=== PATIENT | male | born 1950 | race Caucasian/White ===

== ENCOUNTER 2017-04-06 15:53 | Observation (INO) ==
[2017-04-06] MEDS ORDERED: methylPREDNISolone 125 MG/2 ML VIAL IVP ONE (16:00)
[2017-04-06] MEDS ORDERED: Ipratropium/Albuterol Neb 3 ML IH ONE (16:00)
--- NOTE | 2017-04-06 16:06 | Emergency Department Note ---
Disposition Clinical Impression: Elevated troponin PNA (pneumonia) Qualifiers: Pneumonia type: due to unspecified organism Laterality: right Lung location: unspecified part of lung Qualified Code(s): J18.9 - Pneumonia, unspecified organism Chronic kidney disease Qualifiers: Chronic kidney disease stage: unspecified stage Qualified Code(s): N18.9 - Chronic kidney disease, unspecified Disposition: Admitted As Inpatient Condition: Fair Time of Disposition: 18:50 General Adult HPI - General Chief complaint: ED Nausea/Vomiting/Diarrhea Stated complaint: N/V since last PM Time Seen by Provider: 04/06/17 15:57 Source: patient Mode of arrival: EMS Limitations: no limitations Nursing Notes Reviewed: Yes Vital Signs Reviewed: Yes - History of Present Illness HPI Narrative: 66-year-old male presented for evaluation of cough and dyspnea. Patient denies any fevers. Patient has no productive cough over the past week. Noted dyspnea. Patient has chest pain related to the cough. Patient also has a history of diabetes, hypertension, CAD. Patient denies any abdominal pain. Patient states he has had several episodes of posttussive emesis. Patient brought in via EMS and was doing the hypoxic in the upper 80s on room air. Patient does not have home oxygen. Is a former smoker over 35 years. Notable ill contacts at home. - Related Data Home Medications Medication Instructions Recorded Confirmed Allopurinol [Zyloprim 100 MG] 100 mg PO DAILY 04/02/15 04/06/17 Carvedilol [Coreg] 25 mg PO BID 04/02/15 04/06/17 Citalopram [CeleXA] 20 mg PO DAILY 04/02/15 04/06/17 Furosemide [Lasix] 60 mg PO BID 04/02/15 04/06/17 Insulin ASPART [NovoLOG] 34 unit SQ QAM 04/02/15 04/06/17 Insulin ASPART [NovoLOG] 38 unit SQ QPM 04/02/15 04/06/17 Montelukast [Singulair] 10 mg PO DAILY 04/02/15 04/06/17 Potassium Chloride [K-Tab ER] 20 meq PO BID 04/02/15 04/06/17 Ranitidine HCl [Zantac] 150 mg PO BID 04/02/15 04/06/17 Simvastatin [Zocor] 20 mg PO HS 04/02/15 04/06/17 Hydralazine HCl 100 mg PO BID 04/06/17 04/06/17 Insulin DETEMIR [Levemir Flextouch] 50 unit SQ BID 04/06/17 04/06/17 Isosorbide MONOnitrate (24 HR) 60 mg PO DAILY 04/06/17 04/06/17 [Imdur] Nitroglycerin [Nitrostat] 0.4 mg SL Q5M PRN 04/06/17 04/06/17 Previous Rx's Medication Instructions Recorded Oxycodone HCl/Acetaminophen 1 tab PO Q6H PRN #39 tab 06/14/15 [Percocet 10-325 mg Tablet] Allergies Allergy/AdvReac Type Severity Reaction Status Date / Time No Known Allergies Allergy Verified 12/19/16 15:23 All systems ED: reviewed and negative except as stated. Constitutional: Reports: as per HPI. Denies: fever Eyes: Reports: as per HPI ENT ED: Reports: as per HPI Cardiovascular: Reports: as per HPI. Denies: chest pain Respiratory: Reports: as per HPI, cough, dyspnea, sputum production Gastrointestinal: Reports: as per HPI, nausea, vomiting. Denies: abdominal pain Genitourinary: Reports: as per HPI Musculoskeletal: Reports: as per HPI Integumentary: Reports: as per HPI Neurological: Reports: as per HPI Psychiatric: Reports: as per HPI Endocrine: Reports: as per HPI Hematological/Lymphatic: Reports: as per HPI Past Medical History - Past Medical History Attestation: Yes The following information was validated with the patient. Medical history: Reports: COPD, coronary artery disease, diabetes, hypertension , other (Chronic knee pain; Irregular heart beat) Surgical history: Reports: angioplasty/stent, coronary bypass (CABG), knee replacement, pacemaker/AICD Psychiatric history: Reports: depression - Social History Smoking Status: Never smoker Smokeless Tobacco Status: No Alcohol use: Reports: none Drug use: Reports: none Physical Exam - General Limitations: no limitations General appearance: alert, in no apparent distress - Head Head exam: atraumatic, normocephalic, normal inspection - Eye Eye exam: Present: normal appearance, PERRL, EOMI - ENT ENT exam: normal exam, normal oropharynx, mucous membranes moist - Neck Neck exam: Present: normal inspection, full ROM, trachea midline - Chest Chest inspection: Present: normal inspection, symmetric chest wall rise - Respiratory Respiratory exam: Present: prolonged expiratory phase, other (Scattered lung sounds with no wheeze). Absent: respiratory distress - Cardiovascular Cardiovascular exam: Present: regular rate, normal rhythm. Absent: systolic murmur - Abdominal Exam Abdominal exam: Present: soft, Non-Tender. Absent: distention, guarding, rebound - Extremities Exam Extremities exam: Present: normal inspection. Absent: pedal edema - Back Exam Back exam: Present: normal inspection - Neurological Exam Neurological exam: Present: alert, oriented X3 - Psychiatric Psychiatric exam: Present: normal affect, normal mood - Skin Skin exam: Present: warm, dry, intact, normal color Course Course Narrative: Patient seen and examined upon arrival. Patient does not appear to be in any acute distress. Patient's requiring some supplemental oxygen. Patient denying any chest pain. Patient will need basic cardiopulmonary evaluation including EKG, aerosols and chest x-ray. Differential includes bronchitis first pneumonia. Disposition pending. - Reevaluation(s) Reevaluation #1: Patient seen and examined. Patient appears to be in no acute distress. Patient continues to require oxygen. Patient had mild benefit from steroids nebs. Patient's troponin is elevated. Patient has no contraindication to anticoagulation. Patient does appear generally weak. Time: 18:49 Vital Signs Temperature 99.5 F 04/06/17 15:56 Pulse Rate 89 04/06/17 15:56 Respiratory Rate 04/06/17 15:56 Blood Pressure 188/111 04/06/17 15:56 O2 Sat by Pulse Oximetry 92 04/06/17 15:56 Temperature 99.5 F 04/06/17 15:56 Pulse Rate 85 04/06/17 19:29 Respiratory Rate 04/06/17 19:29 Blood Pressure 160/80 04/06/17 19:29 O2 Sat by Pulse Oximetry 94 04/06/17 19:29 Oxygen Delivery Oxygen Delivery Nasal Cannula Medical Decision Making - [facility] Narrative Medical decision making narrative: Patient presents with nausea vomiting started last night. Patient had a week's worth of cough. Patient's vomiting appear to be more related to posttussive however the patient also has had some [id number] vomiting. Patient received triple nebs as well as steroids as he does have a history of COPD was in distress upon arrival. Patient is requiring oxygen supplementation as he has no oxygen requirement at baseline. Patient's reported chest pain related to the cough. Patient does have an elevated troponin with no acute EKG changes. Patient was given aspirin and started on anticoagulation given his elevated troponin and possible ACS equivalent with his vomiting and nausea. Patient has no contraindication to anticoagulation. Patient was given Nitropaste. Patient's chronic kidney disease at baseline. Patient's chest x- ray shows a possible new infiltrate and was started on antibiotics. - Lab Data Lab results reviewed: Yes I reviewed the patient's lab results. Result diagrams: 04/06/17 16:39 04/06/17 16:39 Lab Results 04/06/17 04/06/17 04/06/17 Range/Units 16:38 16:39 16:39 WBC 8.5 (4.3-11.1) K/mcL RBC 4.32 (4.19-5.50) M/mcL Hgb 13.1 (12.9-16.9) g/dL Hct 40.4 (37.5-50.1) % MCV 93.5 (83.0-100.0) fL MCH 30.3 (28.0-33.3) pg MCHC 32.4 (31.6-35.5) g/dL RDW 14.1 (11.5-14.5) % Plt Count 121 L (140-400) K/mcL MPV 12.0 (9.4-12.4) fL Immature Gran % 0.4 (0-4) % Seg Neutrophils % 75.7 % Lymphocytes % 9.5 % Monocytes % 13.8 % Eosinophils % 0.1 % Basophils % 0.5 % Neutrophils # 6.4 (1.6-8.9) K/mcL Lymphocytes # 0.8 (0.6-4.6) K/mcL Monocytes # 1.2 (0.0-1.3) K/mcL Eosinophils # 0.0 (0.0-0.6) K/mcL Basophils # 0.0 (0.0-0.2) K/mcL PT 13.4 H (9.4-12.1) Seconds INR 1.2 APTT 30.4 (26.0-36.0) Seconds Sodium 133 L (136-145) mEq/L Potassium 4.1 (3.5-5.1) mEq/L Chloride 97 L (98-107) mEq/L Carbon Dioxide 28 (23-29) mEq/L BUN 30 H (8-23) mg/dL Creatinine 1.54 H (0.70-1.30) mg/dL Est GFR ( Amer) 55 L (> 60) Est GFR (Non-Af Amer) 46 L (> 60) BUN/Creatinine Ratio 19 (6-26) Glucose 257 H (70-105) mg/dL Calculated Osmolality 291 (280-300) Calcium 9.2 (8.6-10.3) mg/dL Troponin I (< 0.04) ng/mL B-Natriuretic Peptide (Less than 100) pg/mL 04/06/17 04/06/17 Range/Units 16:39 16:39 WBC (4.3-11.1) K/mcL RBC (4.19-5.50) M/mcL Hgb (12.9-16.9) g/dL Hct (37.5-50.1) % MCV (83.0-100.0) fL MCH (28.0-33.3) pg MCHC (31.6-35.5) g/dL RDW (11.5-14.5) % Plt Count (140-400) K/mcL MPV (9.4-12.4) fL Immature Gran % (0-4) % Seg Neutrophils % % Lymphocytes % % Monocytes % % Eosinophils % % Basophils % % Neutrophils # (1.6-8.9) K/mcL Lymphocytes # (0.6-4.6) K/mcL Monocytes # (0.0-1.3) K/mcL Eosinophils # (0.0-0.6) K/mcL Basophils # (0.0-0.2) K/mcL PT (9.4-12.1) Seconds INR APTT (26.0-36.0) Seconds Sodium (136-145) mEq/L Potassium (3.5-5.1) mEq/L Chloride (98-107) mEq/L Carbon Dioxide (23-29) mEq/L BUN (8-23) mg/dL Creatinine (0.70-1.30) mg/dL Est GFR ( Amer) (> 60) Est GFR (Non-Af Amer) (> 60) BUN/Creatinine Ratio (6-26) Glucose (70-105) mg/dL Calculated Osmolality (280-300) Calcium (8.6-10.3) mg/dL Troponin I 0.11 H* (< 0.04) ng/mL B-Natriuretic Peptide 1150 H (Less than 100) pg/mL - Radiology Data Radiology results reviewed: Yes I reviewed the patient's radiology results. Chest X-Ray 04/06/17 16:00 IMPRESSION: New, right suprahilar airspace opacity may reflect pneumonia in the correct clinical setting. D/ / 04/06/2017 17:34:40 Leyda Minaya MD / mia Interpreting Provider: Leyda Minaya MD - EKG Data EKG #1 EKG attestation: Yes I reviewed and interpreted this EKG. EKG results narrative: Electronic ventricular pacemaker at a rate of 87. No signs of skull most criteria similar to prior EKG from 2016 Volodymyr - Volodym[facility] Situation: Demographics Background: Presenting Complaint Assessment: Vital Signs, Course and respsone to treatment, Patient/Family Expectation Recommendation: Barrier(s) to disposition, Recommendation based on pending studies, treatments, or consults SLauren Report Given to: Hospitalist [facility] Time: 19:43 Attestation Statement - Attestation Attestation: I examined this patient and my medical decision-making was reviewed with the Resident Physician. I agree with the documented findings, disposition and treatment plan as described except to the extent set forth below. 66-year-old male presents ED because of coughing, dyspnea and post-tussive emesis. He denies chest pain. Denies fevers or chills. He has had nasal congestion with secondary cough. There is been also some primary vomiting and diarrhea 5 times today today. No abdominal pain. No dysuria, hematuria or polyuria. No known ill exposures. No recent long distance travel. He does complain of diffuse weakness was too weak to ambulate today. He has remote history of three-vessel CABG without recent cardiac issues. Frail-appearing male who is in no apparent distress. He is intermittently coughing and slightly tachypneic. He has diffuse wheezing through all lung [place]. No focal consolidation. Cardiac exam is regular without murmur. Chest wall is nontender. Abdomen soft, nondistended and nontender. Extremities warm and dry with bilateral pitting edema. EKG was consistent with a functioning ventricular pacer. Morphology unchanged from prior EKGs. Chest x-ray suggestive of a right suprahilar infiltrate. Troponin was elevated. He received aspirin as well as a bolus of heparin. IV Levaquin followed by IV heparin infusion and will be admitted for further treatment and evaluation. He did improve with sequential DuoNeb and continued with coughing. The high probability of a clinically significant, sudden or life threatening deterioration of the [cardiopulmonary] system(s) required my full and direct attention, intervention and personal management. The aggregate critical care time was [35] minutes. This time is in addition to time spent performing reported procedures but includes the following: [x] Data Review and interpretation [x] Patient assessment and monitoring of vital signs [x] Documentation [x] Medication orders and management
[2017-04-06 17:12] LABS: Basophils % 0.5 %; Eosinophils % 0.1 %; Hematocrit 40.4 % (37.5-50.1); Hemoglobin 13.1 g/dL (12.9-16.9); Immature Granulocytes % 0.4 % (0-4); Lymphocytes # 0.8 K/mcL (0.6-4.6); Lymphocytes % 9.5 %; Mean Corpuscular HGB Conc 32.4 g/dL (31.6-35.5); Mean Corpuscular Hemoglobin 30.3 pg (28.0-33.3); Mean Corpuscular Volume 93.5 fL (83.0-100.0); Monocytes # 1.2 K/mcL (0.0-1.3); Monocytes % 13.8 %; Neutrophils # 6.4 K/mcL (1.6-8.9); Platelet Count 121 K/mcL (140-400); Red Blood Count 4.32 M/mcL (4.19-5.50); Red Cell Distribution Width 14.1 % (11.5-14.5); Segmented Neutrophils % 75.7 %
[2017-04-06 17:28] LABS: Calcium 9.2 mg/dL (8.6-10.3); Potassium 4.1 mEq/L (3.5-5.1)
[2017-04-06] MEDS ORDERED: Levofloxacin 750 MG/150 ML 750 MG/150 ML BAG IVPB ONE (17:48)
[2017-04-06] MEDS ORDERED: Aspirin 81 MG TAB.CHEW PO STA (17:57)
[2017-04-06] MEDS ORDERED: Nitroglycerin 1 INCH/GM PACKET TP ONE (18:11)
[2017-04-06] MEDS ORDERED: *HR* Heparin 5,000 UNIT/ML VIAL IVP ONE (18:48)
[2017-04-06] MEDS ORDERED: Heparin 25,000 UNIT/500 ML D5W 25,000 UNIT/500 ML BAG IVC SCH (19:00)
[2017-04-06 19:05] LABS: INR 1.2; Prothrombin Time 13.4 Seconds (9.4-12.1)
[2017-04-06 19:08] LABS: Activated Partial Thrombo Time 30.4 Seconds (26.0-36.0)
[2017-04-07] MEDS ORDERED: D5% in Water 1,000 ML IVC PRN (02:02)
[2017-04-07] MEDS ORDERED: Dextrose Gel 15 GM/37.5 ML TUBE PO PRN ×2 (02:02)
[2017-04-07] MEDS ORDERED: Naloxone 0.4 MG/ML INJ IVP PRN (02:02)
[2017-04-07] MEDS ORDERED: *HR* Dextrose 50 % in Water (Syg) 50 ML SYRINGE IVP PRN (02:02)
[2017-04-07] MEDS ORDERED: Ondansetron ODT 4 MG TAB.RAPDIS SL PRN (02:08)
[2017-04-07] MEDS ORDERED: Acetaminophen 325 MG TABLET PO PRN (02:08)
[2017-04-07] MEDS ORDERED: *HR* HYDROcodone/Acet 5/325 mg TABLET PO PRN (02:08)
[2017-04-07 03:42] LABS: Basophils % 0.2 %; Hematocrit 40.1 % (37.5-50.1); Hemoglobin 13.1 g/dL (12.9-16.9); Immature Granulocytes % 0.5 % (0-4); Lymphocytes # 0.5 K/mcL (0.6-4.6); Lymphocytes % 7.3 %; Mean Corpuscular HGB Conc 32.7 g/dL (31.6-35.5); Mean Corpuscular Hemoglobin 30.7 pg (28.0-33.3); Mean Corpuscular Volume 93.9 fL (83.0-100.0); Mean Platelet Volume 11.8 fL (9.4-12.4); Monocytes # 0.2 K/mcL (0.0-1.3); Monocytes % 3.7 %; Neutrophils # 5.5 K/mcL (1.6-8.9); Platelet Count 122 K/mcL (140-400); Red Blood Count 4.27 M/mcL (4.19-5.50); Red Cell Distribution Width 14.1 % (11.5-14.5); Segmented Neutrophils % 88.3 %
--- NOTE | 2017-04-07 03:52 | Internal Med History&Physical ---
<Prosper Page - Last Filed: 04/07/17 04:37> Date of Encounter: 04/07/17 Time of Encounter: 02:46 Assessment and Plan (1) Lower respiratory infection (e.g., bronchitis, pneumonia, pneumonitis, pulmonitis) Current visit: Yes Status: Acute CAP -- CXR shows possible rt suprahilar pna H/o COPD with wheezes O2 per need to maintain saturations above 90% Levaquin for 7 day course + solumedrol ordered Scheduled duonebs + PRN albuterol nebs maintain on cont cardiac/O2 monitor (2) COPD with acute exacerbation Current visit: Yes Status: Acute due to #1; plan as above (3) Congestive heart failure (CHF) Current visit: Yes Status: Acute Aside from shortness of breath, patient lacks exam findings of significant exacerbation lung auscultation was significant only for expiratory wheezes; no rales/rhonchi no significant pedal edema in either lower extremity will obtain TTE continuing relevant home meds; holding Lasix for now fluid restriction to 2000mL/day Qualifiers: Congestive heart failure type: systolic Congestive heart failure chronicity : acute on chronic Qualified Code(s): I50.23 - Acute on chronic systolic ( congestive) heart failure (4) Elevated troponin Current visit: Yes Status: Acute Likely demand ischemia secondary to acute exacerbation of CHF as well as CKD; variable history suggests possible ACS Will repeat troponin x2 at 0400AM and at 1000AM patient is currently undergoing heparin infusion (5) Diabetes mellitus, type II, insulin dependent Current visit: Yes Status: Chronic Glucose elevated on initial evaluation patient will be on diabetic diet and SSI depending on length of stay, will consider addition of basal insulin in addition to SSI FSB as per SSI protocol (6) Chronic kidney disease Current visit: Yes Status: Chronic Possibly cute on chronic kidney disease, though unclear in historical trend of values within record Will follow renal function Qualifiers: Chronic kidney disease stage: unspecified stage Qualified Code(s): N18.9 - Chronic kidney disease, unspecified (7) DVT prophylaxis Current visit: Yes Status: Acute currently on heparin infusion Internal Medicine - H&P: HPI Chief complaint: SOA & vomiting Admitted From: Home Plans for Post Hospital Care: Home History of present illness: Mr. Sotelo is a 66 year old male with history of COPD, sCHF, CAD, HTN, & type II diabetes. Patient is admitted for bronchitis/pneumonia, increased respiratory demand requiring oxygen supplementation, as well as heparinization for possible NSTEMI / elevated troponin. Patient states that for about 5 or 6 days, he has had nonproductive cough that is worsening over time, associated shortness of air, and episodes of vomiting particularly when he is coughing heavily. Patient is a former smoker denies current use. Patient also states lives at home with was having similar symptoms. Patient denies any syncope, lightheadedness, retrosternal chest pain, nausea, abdominal pain, dysuria, diarrhea, or leg swelling. Describes difficulty breathing while fully supine. Of note, patient has an ECHO done in 2015 which showed mild decrease in LVEF. Past Med Surg Social Fam HX - Past Medical History Attestation: Yes The following information was validated with the patient. Source: patient Medical history: COPD, coronary artery disease, diabetes, hypertension, other Psychiatric history: depression - Past Surgical History Surgical History: angioplasty/stent, coronary bypass (CABG), knee replacement, pacemaker/AICD - Social History Smoking Status: Never smoker Smokeless Tobacco Status: No Alcohol use: none Drug use: none - Family History Mother Adopted: No Living Status: Hx Family Neurologic Disorders: Yes (dementia) Father Living Status: Hx Family Cardiac Disorders: Yes Hx Family Endocrine Disorder: Yes (DM) Internal Medicine - H&P: Meds Allopurinol [Zyloprim 100 MG] 100 mg PO DAILY 04/02/15 [History] Carvedilol [Coreg] 25 mg PO BID 04/02/15 [History] Citalopram [CeleXA] 20 mg PO DAILY 04/02/15 [History] Furosemide [Lasix] 60 mg PO BID 04/02/15 [History] Insulin ASPART [NovoLOG] 34 unit SQ QAM 04/02/15 [History] Insulin ASPART [NovoLOG] 38 unit SQ QPM 04/02/15 [History] Montelukast [Singulair] 10 mg PO DAILY 04/02/15 [History] Potassium Chloride [K-Tab ER] 20 meq PO BID 04/02/15 [History] Ranitidine HCl [Zantac] 150 mg PO BID 04/02/15 [History] Simvastatin [Zocor] 20 mg PO HS 04/02/15 [History] Oxycodone HCl/Acetaminophen [Percocet 10-325 mg Tablet] 1 tab PO Q6H PRN #39 tab 06/14/15 [Rx] Hydralazine HCl 100 mg PO BID 04/06/17 [History] Insulin DETEMIR [Levemir Flextouch] 50 unit SQ BID 04/06/17 [History] Isosorbide MONOnitrate (24 HR) [Imdur] 60 mg PO DAILY 04/06/17 [History] Nitroglycerin [Nitrostat] 0.4 mg SL Q5M PRN 04/06/17 [History] 3 Allergy/AdvReac Type Severity Reaction Status Date / Time No Known Allergies Allergy Verified 12/19/16 15:23 All Systems PM: A 10-system review of systems was performed and is negative for pertinent findings except as documented above in the HPI. Review of systems: As per HPI - Constitutional Vitals: Temp Pulse Resp BP Pulse Ox 97.9 F 76 19 156/75 96 04/06/17 23:44 04/06/17 23:44 04/06/17 23:44 04/06/17 23:44 04/06/17 23:44 Exam: CONSTITUTIONAL: asleep supine in bed with head elevated to 45d, readily responsive to verbal stimulus, NAD HEAD: Normocephalic; atraumatic. EYES: PERRL, no scleral icterus, no drainage, no conjunctival injection NOSE: nasal cannula in place at 2LPM Oropharynx: pink/moist, no tonsillar edema/erythema/exudates RESP: able to speak in full, uninterrupted sentences; NRD without use of accessory musculature, expiratory wheezes heard throughout, no rales or rhonchi appreciable CARD: Regular rhythm, without murmurs, rubs, or gallop ABD: non-distended abdomen with NBS, non-tender, soft SKIN: normal appearance, no pallor/diaphoresis,mottling,jaundice,cyanosis EXT: DP/Rad pulses 2+ and symmetrical; no pedal edema; no other lesions seen PSYCH: somnolent, but otherwise appropriate mood/affect Internal Med - H&P Results - Labs CBC & Chem 7: 04/07/17 03:34 04/07/17 03:34 Labs: Short CBC 04/07/17 Range/Units 03:34 WBC 6.2 (4.3-11.1) K/mcL Hgb 13.1 (12.9-16.9) g/dL Hct 40.1 (37.5-50.1) % Plt Count 122 L (140-400) K/mcL Neutrophils # 5.5 (1.6-8.9) K/mcL <Reyes Rapp - Last Filed: 04/07/17 06:02> Date of Encounter: 04/07/17 Time of Encounter: 04:55 - Constitutional Constitutional: fever(s) - EENT Eyes: no blurry vision, no change in vision Ears: no ear pain, no other Nose, mouth and throat: nasal congestion, post-nasal drip, no sinus pressure, no sore throat - Cardiovascular Cardiovascular ROS IM: dyspnea, dyspnea on exertion, no chest pain - Respiratory Respiratory: cough, dyspnea, chest congestion, excessive phlegm production, change in phlegm color, no hemoptysis - Gastrointestinal Gastrointestinal: no abdominal pain, no diarrhea, no melena, no nausea, no vomiting - Genitourinary Genitourinary ROS male: no dysuria, no flank pain, no hematuria - Musculoskeletal Musculoskeletal ROS IM: no back pain, no muscle cramps, no muscle weakness - Integumentary Integumentary IM: no rash, no jaundice - Neurological Neurological ROS: no dizziness, no focal weakness, no frequent falls, no headache(s) - Psychiatric Psychiatric: no anxiety, no depression - Endocrine Endocrine IM: no polydipsia, no polyuria - Hematologic/Lymphatic Hematologic/Lymphatic: no easy bruising, no lymphadenopathy - Allergic/Immunologic Allergic/Immunologic: no wheezing, no GI upset with certain foods - Constitutional Vitals: Temp Pulse Resp BP Pulse Ox 98.6 F 71 20 140/71 95 04/07/17 04:09 04/07/17 04:09 04/07/17 04:09 04/07/17 04:09 04/07/17 04:09 General appearance: Present: A&O X 3, no acute distress - Head Head exam: Present: normal inspection - Eye Eye exam: Present: PERRL. Absent: scleral icterus Pupils: Present: normal accommodation - Respiratory Respiratory exam: Present: rales (subtle right sided ), rhonchi. Absent: accessory muscle use, chest wall tenderness, respiratory distress, wheezes - Cardiovascular Cardiovascular exam: Present: RRR, +S1, +S2 Additional comments: pacer in left upper chest - GI/Abdominal GI/Abdominal exam: Present: normal bowel sounds, soft. Absent: hepatomegaly, splenomegaly - Extremities Exam Extremities exam: Present: warm. Absent: calf tenderness, tenderness - Back Exam Back exam: Absent: CVA tenderness (L), CVA tenderness (R) - Skin Skin exam: Present: dry, warm. Absent: rash Internal Med - H&P Results - Labs CBC & Chem 7: 04/07/17 03:34 04/07/17 03:34 Labs: Short CBC 04/07/17 Range/Units 03:34 WBC 6.2 (4.3-11.1) K/mcL Hgb 13.1 (12.9-16.9) g/dL Hct 40.1 (37.5-50.1) % Plt Count 122 L (140-400) K/mcL Neutrophils # 5.5 (1.6-8.9) K/mcL BMP 04/07/17 03:34 Sodium 134 L Potassium 4.1 Chloride 99 Carbon Dioxide 26 BUN 34 H Creatinine 1.31 H Glucose 342 H Calcium 9.0 Cardiac Enzymes 04/07/17 Range/Units 03:34 Troponin I 0.11 H* (< 0.04) ng/mL - EKG Data -: EKG Interpreted by Myself - EKG Data EKG comments: 04/07/17 05:56 Ventricular paced rhythm - Attending Attestation I discussed the patient RAMPART, PMH, ROS, lab data, and exam findings with Dr. Page. I then saw and examined patient independently as well. Upon my assessment of the patient, he denies ever having had chest pain. He does admit to significant SOB, especially with exertion. He also has had significant cough (sometimes productive) for the last several days. He's had subjective fevers. His troponins are 0.11 x 2. We will continue heparin gtt until a third troponin is resulted. We will treat his bronchitis/pneumonia as above. Additionally, he may need cardiology consult for his troponin elevation and further work-up. Other than my comments noted above and noted exam findings, I agree with Dr. Page's assessment and plan.
[2017-04-07 04:09] LABS: BUN/Creatinine Ratio 26 (6-26); Blood Urea Nitrogen 34 mg/dL (8-23); Carbon Dioxide 26 mEq/L (23-29); Chloride 99 mEq/L (98-107); Glucose 342 mg/dL (70-105); Osmolality,Calculated 299 (280-300); Potassium 4.1 mEq/L (3.5-5.1); Sodium 134 mEq/L (136-145); eGFR For African Americans > 60 (> 60); eGFR For Non-African Americans 55 (> 60)
[2017-04-07] MEDS ORDERED: Albuterol 2.5 MG/3 ML NEBULIZER IH PRN (04:13)
[2017-04-07] MEDS ORDERED: *HR* OxyCODONE/APAP 10/325 TABLET PO PRN (04:36)
[2017-04-07] MEDS: Ipratropium/Albuterol Neb 3 ML IH SCH ×5 (07:37→23:17)
[2017-04-07] MEDS ORDERED: methylPREDNISolone 125 MG/2 ML VIAL IVP SCH (08:00)
[2017-04-07] MEDS: Insulin LISPRO 300 UNITS/3 ML VIAL SQ SCH ×3 (08:26→16:39)
[2017-04-07] MEDS: Isosorbide MONOnitrate (24 HR) 60 MG TAB.ER.24H PO SCH (08:26)
[2017-04-07] MEDS: hydrALAZINE 25 MG TABLET PO SCH ×2 (08:28→22:08)
--- NOTE | 2017-04-07 10:37 | Internal Med Progress Note ---
<Bryon Barraza - Last Filed: 04/07/17 14:53> Date of Encounter: 04/07/17 Time of Encounter: 10:36 - Assessment and plan (1) Acute respiratory failure Current Visit: Yes Status: Acute Assessment and plan: - Acute respiratory failure requiring supplemental O2. No home O2 requirement. Per ED note, EMS reported O2 saturation in 80s on room air upon presentation - Currently tolerating 98% on 2L - Likely secondary to viral illness vs PNA vs less likely COPD exacerbation - CXR in ED on 04/06/17 showed new right suprahilar opacity possibly concerning for PNA - History of CHF but denies any PND, edema or increased orthopnea. EfF on shows EF of 45-50% with mild MR and indeterminate diastolic dysfunction. - Productive cough with thin dark sputum, subjective fevers. Temp of 99.5 on presentation, none after admission. WBC of 6.2 - Sick contact of - Viral panel pending. Blood culture pending. Plan - Continue supportive therapy - Levaquin started in ED for possible PNA vs bronchitis, will continue - Decrease steroids to prednisone 40 mg Qday - Duonebs Qualifiers: Respiratory failure complication: hypoxia Qualified Code(s): J96.01 - Acute respiratory failure with hypoxia (2) COPD with acute exacerbation Current Visit: Yes Status: Acute Assessment and plan: - Hx of COPD, former smoker, quit 30 years ago. - No PFTs in system. - Likely exacerbated by viral illness - No wheezing appreciated on exam, however does have change in cough and sputum production with increased O2 requirement. - Further workup as above. Plan - Duonebs, prednisone, levaquin - Supplemental O2 as needed. (3) PNA (pneumonia) Current Visit: Yes Status: Suspected Assessment and plan: - Right suprahilar opacity seen on CXR in ED. - Suspect more likely viral etiology but given sputum and low grade fever will treat as above with levaquin Qualifiers: Pneumonia type: due to unspecified organism Laterality: right Lung location: upper lobe of lung Qualified Code(s): J18.1 - Lobar pneumonia, unspecified organism (4) Coronary artery disease Current Visit: Yes Status: Chronic Assessment and plan: - Hx of CAD - Elevated troponin of 0.11/0.11/0.07 - Adynamic, EKG showed paced rhythm, otherwise unremarkable. - No complaints of chest pain. - Likely related to demand ischemia. Plan - Discontinue heparin gtt. - Continue home BB, Start ASA 81 mg - Will monitor. Qualifiers: Coronary Disease-Associated Artery/Lesion type: bypass graft [place] vs. transplanted heart: [place] heart Associated angina: without angina Qualified Code(s): I25.810 - Atherosclerosis of coronary artery bypass graft(s) without angina pectoris (5) Diabetes mellitus, type II, insulin dependent Current Visit: Yes Status: Chronic Assessment and plan: - Elevated BS this morning most likely due to IV steroid for COPD as above. - Most recent A1c in 02/12/17 of 7.7% - Will decrease steroid to Prednisone 40 and use SSI to cover BS (6) GERARDO on CPAP Current Visit: No Status: Chronic Assessment and plan: - Stable at baseline. - CPAP at night. (7) CKD (chronic kidney disease) stage 3, GFR 30-59 ml/min Current Visit: Yes Status: Chronic Assessment and plan: BUN/ Cr of 34/1.31 most recently, improved from admisssion - Baseline Cr appears to be around 1-1.3 - Likely secondary to dehydration in the setting of viral illness - Will continue to monitor, avoid nephrotoxic agents. (8) Elevated troponin Current Visit: Yes Status: Acute Assessment and plan: - Troponin of 0.11/0.11/0.07 - Most likely secondary to type II NSTEMI - EKG shows paced rhythm, otherwise unremarkable. - No complaints of CP Plan - Discontinue Heparin gtt - Will continue to monitor (9) DVT prophylaxis Current Visit: Yes Status: Acute Assessment and plan: - Was on heparin gtt for possible ACS. - Stopped gtt and will start heparin 5000 units q 12 hours - Time Spent With Patient 25 - 35 minutes - Subjective Interval history: This note is not for billing purposes. Pt was seen and examined at bedside this morning. He states overall he is feeling better than when he was admitted. Still has some SOB and productive cough with thin dark sputum. Admits to orthopnea which is chronic but no swelling or PND. Admits to some fevers and chills on admission but none recently. No chest pain, nausea, vomiting, wheezing. is also sick at home with similar symptoms. - Constitutional Vitals: Temp Pulse Resp BP Pulse Ox 98.2 F 74 18 185/100 96 04/07/17 06:48 04/07/17 06:48 04/07/17 07:37 04/07/17 06:48 04/07/17 07:37 General appearance: Present: A&O X 3, no acute distress Exam: Gen.: Vitals noted. No acute distress. AAOx3 HEENT: PERRL/EOMI, oropharynx clear, Normocephalic, atraumatic Cardiac: RRR, no murmur, +S1/S2 Pulmonary: Moderate rales on RLL, otherwise CTA. No wheezes appreciated. equal chest expansion Abdomen: soft, nontender, BS noted, no guarding MSK: ROM intact, no joint swelling noted Extremities: no BLE edema, nontender calf, no cyanosis or clubbing Neuro: A&Ox3, moves all extremities, no focal deficits Psych: Appropriate mood and behavior Internal Medicine: Result - Labs CBC & Chem 7: 04/07/17 03:34 04/07/17 03:34 Labs: Short CBC 04/07/17 Range/Units 03:34 WBC 6.2 (4.3-11.1) K/mcL Hgb 13.1 (12.9-16.9) g/dL Hct 40.1 (37.5-50.1) % Plt Count 122 L (140-400) K/mcL Neutrophils # 5.5 (1.6-8.9) K/mcL BMP 04/07/17 03:34 Sodium 134 L Potassium 4.1 Chloride 99 Carbon Dioxide 26 BUN 34 H Creatinine 1.31 H Glucose 342 H Calcium 9.0 Cardiac Enzymes 04/07/17 Range/Units 03:34 Troponin I 0.11 H* (< 0.04) ng/mL - ABG Interpretation ABG results: PT/INR, D-dimer PT 13.4 Seconds (9.4-12.1) H 04/06/17 16:38 Consult Discharge Plan - Plan Referrals: Teena Jimenez MD [Primary Care Provider] - <Jesus Manuel Linares - Last Filed: 04/07/17 18:53> Date of Encounter: 04/07/17 - Assessment and plan (1) Acute respiratory failure Current Visit: Yes Status: Acute Qualifiers: Respiratory failure complication: hypoxia Qualified Code(s): J96.01 - Acute respiratory failure with hypoxia (2) Influenza A (H1N1) Current Visit: Yes Status: Acute (3) COPD with acute exacerbation Current Visit: Yes Status: Acute (4) Congestive heart failure (CHF) Current Visit: Yes Status: Acute Qualifiers: Congestive heart failure type: systolic Congestive heart failure chronicity : acute on chronic Qualified Code(s): I50.23 - Acute on chronic systolic ( congestive) heart failure (5) CKD (chronic kidney disease) stage 3, GFR 30-59 ml/min Current Visit: Yes Status: Chronic (6) Coronary artery disease Current Visit: Yes Status: Chronic Qualifiers: Coronary Disease-Associated Artery/Lesion type: bypass graft [place] vs. transplanted heart: [place] heart Associated angina: without angina Qualified Code(s): I25.810 - Atherosclerosis of coronary artery bypass graft(s) without angina pectoris (7) Diabetes mellitus, type II, insulin dependent Current Visit: Yes Status: Chronic - Constitutional Vitals: Temp Pulse Resp BP Pulse Ox 98.2 F 74 18 131/69 95 04/07/17 15:45 04/07/17 15:45 04/07/17 16:22 04/07/17 15:45 04/07/17 16:22 Internal Medicine: Result - Labs CBC & Chem 7: 04/07/17 03:34 04/07/17 03:34 Labs: Short CBC 04/07/17 Range/Units 03:34 WBC 6.2 (4.3-11.1) K/mcL Hgb 13.1 (12.9-16.9) g/dL Hct 40.1 (37.5-50.1) % Plt Count 122 L (140-400) K/mcL Neutrophils # 5.5 (1.6-8.9) K/mcL BMP 04/07/17 03:34 Sodium 134 L Potassium 4.1 Chloride 99 Carbon Dioxide 26 BUN 34 H Creatinine 1.31 H Glucose 342 H Calcium 9.0 Cardiac Enzymes 04/07/17 04/07/17 Range/Units 03:34 10:03 Troponin I 0.11 H* 0.07 H* (< 0.04) ng/mL - ABG Interpretation ABG results: PT/INR, D-dimer PT 13.4 Seconds (9.4-12.1) H 04/06/17 16:38 - Attending Attestation I examined this patient and my medical decision-making was reviewed with the Resident Physician on 04/07/17. I agree with the documented findings, disposition and treatment plan as described except to the extent set forth below. Mr Sotelo is currently admitted for acute respiratory failure and has been found to have influenza. He remains moderate to high risk due to potential for worsening respiratory status. Mr Sotelo feels he is breathing better. No fever at this time. Still with wheeze. Appetite OK. No GI issues. Exam Alert. Comfortable Mucus membranes dry Heart reg Diffuse wheeze heard Abd soft I/P 1. Resp failure 2. Influenza A Further diagnoses and plan as above.
[2017-04-07] MEDS ORDERED: hydrALAZINE 10 MG TABLET PO PRN (10:44)
[2017-04-07 14:58] LABS: Adenovirus Not Detected (Not Detect); Bordetella Pertussis Not Detected (Not Detect); Chlamydophila pneumoniae Not Detected (Not Detect); Coronavirus 229E Not Detected (Not Detect); Coronavirus HKU1 Not Detected (Not Detect); Coronavirus NL63 Not Detected (Not Detect); Coronavirus OC43 Not Detected (Not Detect); Human Metapneumovirus Not Detected (Not Detect); Human Rhinovirus/Enterovirus Not Detected (Not Detect); Influenza A Subtype 2009 H1 ***DETECTED*** (Not Detect); Influenza A Untypeable Not Detected (Not Detect); Influenza B Not Detected (Not Detect); Mycoplasma pneumoniae Not Detected (Not Detect); Parainfluenza Virus 1 Not Detected (Not Detect); Parainfluenza Virus 2 Not Detected (Not Detect); Parainfluenza Virus 3 Not Detected (Not Detect); Parainfluenza Virus 4 Not Detected (Not Detect); Respiratory Syncytial Virus Not Detected (Not Detect)
[2017-04-07] MEDS: Levofloxacin 750 MG/150 ML 750 MG/150 ML BAG IVPB SCH (16:39)
[2017-04-07] MEDS: *HR* Heparin 5,000 UNIT/ML VIAL SQ SCH (16:39)
[2017-04-07] MEDS ORDERED: Insulin LISPRO 300 UNITS/3 ML VIAL SQ SCH (21:00)
[2017-04-08] MEDS: Ipratropium/Albuterol Neb 3 ML IH SCH ×6 (04:00→23:53)
[2017-04-08 05:30] LABS: Basophils % 0.1 %; Hematocrit 37.4 % (37.5-50.1); Hemoglobin 12.2 g/dL (12.9-16.9); Lymphocytes # 0.5 K/mcL (0.6-4.6); Lymphocytes % 4.3 %; Mean Corpuscular HGB Conc 32.6 g/dL (31.6-35.5); Mean Corpuscular Volume 92.1 fL (83.0-100.0); Mean Platelet Volume 12.8 fL (9.4-12.4); Monocytes # 0.9 K/mcL (0.0-1.3); Monocytes % 7.9 %; Neutrophils # 10.1 K/mcL (1.6-8.9); Platelet Count 122 K/mcL (140-400); Red Blood Count 4.06 M/mcL (4.19-5.50); Red Cell Distribution Width 13.8 % (11.5-14.5); Segmented Neutrophils % 86.7 %
[2017-04-08 05:53] LABS: Calcium 8.9 mg/dL (8.6-10.3)
[2017-04-08] MEDS: *HR* Heparin 5,000 UNIT/ML VIAL SQ SCH ×2 (06:14→17:57)
[2017-04-08] MEDS: Aspirin Enteric Coated 81 MG Tablet PO SCH (08:10)
[2017-04-08] MEDS: Insulin LISPRO 300 UNITS/3 ML VIAL SQ SCH ×3 (08:10→17:56)
[2017-04-08] MEDS: Isosorbide MONOnitrate (24 HR) 60 MG TAB.ER.24H PO SCH (08:11)
[2017-04-08] MEDS: predniSONE 20 MG TABLET PO SCH (08:11)
[2017-04-08] MEDS: hydrALAZINE 25 MG TABLET PO SCH ×2 (08:11→21:00)
--- NOTE | 2017-04-08 08:48 | Internal Med Progress Note ---
<Bryon Barraza - Last Filed: 04/08/17 08:44> Date of Encounter: 04/08/17 Time of Encounter: 08:44 - Assessment and plan (1) Acute respiratory failure Current Visit: Yes Status: Acute Assessment and plan: - Acute respiratory failure requiring supplemental O2. No home O2 requirement. Per ED note, EMS reported O2 saturation in 80s on room air upon presentation - Currently tolerating 95% on 2L. During interview, he is tolerating RA in low 90s. - Likely secondary COPD exacerbation secondary to flu - CXR in ED on 04/06/17 showed new right suprahilar opacity possibly concerning for PNA - History of CHF but denies any PND, edema or increased orthopnea. EF on shows EF of 45-50% with mild MR and indeterminate diastolic dysfunction. - Productive cough with thin dark sputum, subjective fevers. Temp of 99.5 on presentation, none after admission. WBC of 11.7 on steroids. - Sick contact of - Respiratory panel positive for H1N1 influenza. Plan - Continue supportive therapy, tamiflu day #2 - Levaquin started in ED for possible PNA vs bronchitis, will continue, day 3 - prednisone 40 mg Qday, day 3 of steroids. - Duonebs Qualifiers: Respiratory failure complication: hypoxia Qualified Code(s): J96.01 - Acute respiratory failure with hypoxia (2) COPD with acute exacerbation Current Visit: Yes Status: Acute Assessment and plan: - Hx of COPD, former smoker, quit 30 years ago. - No PFTs in system. - Likely exacerbated by flu - Moderate wheezing appreciated on exam, however does have change in cough and sputum production with increased O2 requirement. - Further workup as above. Plan - Duonebs, prednisone, levaquin, tamiflu - Supplemental O2 as needed. (3) PNA (pneumonia) Current Visit: Yes Status: Suspected Assessment and plan: - Right suprahilar opacity seen on CXR in ED. - Suspect more likely viral etiology but given sputum and low grade fever will treat as above with levaquin Qualifiers: Pneumonia type: due to unspecified organism Laterality: right Lung location: upper lobe of lung Qualified Code(s): J18.1 - Lobar pneumonia, unspecified organism (4) Coronary artery disease Current Visit: Yes Status: Chronic Assessment and plan: - Hx of CAD - Elevated troponin of 0.11/0.11/0.07 - Adynamic, EKG showed paced rhythm, otherwise unremarkable. - No complaints of chest pain. - Likely related to demand ischemia. Plan - Discontinue heparin gtt. - Continue home BB, Start ASA 81 mg - Will monitor. Qualifiers: Coronary Disease-Associated Artery/Lesion type: bypass graft [place] vs. transplanted heart: [place] heart Associated angina: without angina Qualified Code(s): I25.810 - Atherosclerosis of coronary artery bypass graft(s) without angina pectoris (5) Diabetes mellitus, type II, insulin dependent Current Visit: Yes Status: Chronic Assessment and plan: - Elevated BS this morning of 459 most likely due to IV steroid for COPD as above. - Most recent A1c in 02/12/17 of 7.7% - Likely secondary to Prednisone 40 and infection - Continue SSI. Start home dose of basal insulin 50 units BID (6) GERARDO on CPAP Current Visit: No Status: Chronic Assessment and plan: - Stable at baseline. - CPAP at night. (7) CKD (chronic kidney disease) stage 3, GFR 30-59 ml/min Current Visit: Yes Status: Chronic Assessment and plan: BUN/ Cr of 45/1.45 most recently, mildly increased from yesterday - Baseline Cr appears to be around 1-1.3 - Likely secondary to dehydration in the setting of viral illness - Will continue to monitor, avoid nephrotoxic agents. (8) Elevated troponin Current Visit: Yes Status: Acute Assessment and plan: - Troponin of 0.11/0.11/0.07 - Most likely secondary to type II NSTEMI - EKG shows paced rhythm, otherwise unremarkable. - No complaints of CP Plan - Discontinue Heparin gtt - Will continue to monitor (9) DVT prophylaxis Current Visit: Yes Status: Acute Assessment and plan: - Was on heparin gtt for possible ACS. - Stopped gtt and will start heparin 5000 units q 12 hours - Time Spent With Patient 25 - 35 minutes - Subjective Interval history: Pt was seen and examined at bedside this morning. He states overall he is feeling better than when he was admitted. States he has no SOB and would like to try weaning from his oxygen. He still has complaint of non productive cough but is improving. Denies fevers, chills, nausea, vomiting. - Constitutional Vitals: Temp Pulse Resp BP Pulse Ox 98.0 F 76 14 167/99 95 04/08/17 07:00 04/08/17 07:00 04/08/17 07:00 04/08/17 07:00 04/08/17 07:00 General appearance: Present: A&O X 3, no acute distress Exam: Gen.: Vitals noted. No acute distress. AAOx3 HEENT: PERRL/EOMI, oropharynx clear, Normocephalic, atraumatic Cardiac: RRR, no murmur, +S1/S2 Pulmonary: Moderate wheezes diffusely. Otherwise CTA. equal chest expansion Abdomen: soft, nontender, BS noted, no guarding MSK: ROM intact, no joint swelling noted Extremities: no BLE edema, nontender calf, no cyanosis or clubbing Neuro: A&Ox3, moves all extremities, no focal deficits Psych: Appropriate mood and behavior Internal Medicine: Result - Labs CBC & Chem 7: 04/08/17 05:13 04/08/17 05:13 Labs: Short CBC 04/08/17 Range/Units 05:13 WBC 11.7 H D (4.3-11.1) K/mcL Hgb 12.2 L (12.9-16.9) g/dL Hct 37.4 L (37.5-50.1) % Plt Count 122 L (140-400) K/mcL Neutrophils # 10.1 H (1.6-8.9) K/mcL BMP 04/08/17 05:13 Sodium 133 L Potassium 5.0 Chloride 100 Carbon Dioxide 27 BUN 42 H Creatinine 1.45 H Glucose 459 H Calcium 8.9 Cardiac Enzymes 04/07/17 Range/Units 10:03 Troponin I 0.07 H* (< 0.04) ng/mL - ABG Interpretation ABG results: PT/INR, D-dimer PT 13.4 Seconds (9.4-12.1) H 04/06/17 16:38 Consult Discharge Plan - Plan Referrals: Teena Jimenez MD [Primary Care Provider] - <Jesus Manuel Linares - Last Filed: 04/08/17 18:36> Date of Encounter: 04/08/17 - Assessment and plan (1) Acute respiratory failure Current Visit: Yes Status: Acute Qualifiers: Respiratory failure complication: hypoxia Qualified Code(s): J96.01 - Acute respiratory failure with hypoxia (2) Influenza A (H1N1) Current Visit: Yes Status: Acute (3) COPD with acute exacerbation Current Visit: Yes Status: Acute (4) Congestive heart failure (CHF) Current Visit: Yes Status: Acute Qualifiers: Congestive heart failure type: systolic Congestive heart failure chronicity : acute on chronic Qualified Code(s): I50.23 - Acute on chronic systolic ( congestive) heart failure (5) CKD (chronic kidney disease) stage 3, GFR 30-59 ml/min Current Visit: Yes Status: Chronic (6) Coronary artery disease Current Visit: Yes Status: Chronic Qualifiers: Coronary Disease-Associated Artery/Lesion type: bypass graft [place] vs. transplanted heart: [place] heart Associated angina: without angina Qualified Code(s): I25.810 - Atherosclerosis of coronary artery bypass graft(s) without angina pectoris (7) Diabetes mellitus, type II, insulin dependent Current Visit: Yes Status: Chronic - Constitutional Vitals: Temp Pulse Resp BP Pulse Ox 97.9 F 67 16 176/88 92 04/08/17 17:58 04/08/17 17:58 04/08/17 17:58 04/08/17 18:22 04/08/17 17:58 Internal Medicine: Result - Labs CBC & Chem 7: 04/08/17 05:13 04/08/17 05:13 Labs: Short CBC 04/08/17 Range/Units 05:13 WBC 11.7 H D (4.3-11.1) K/mcL Hgb 12.2 L (12.9-16.9) g/dL Hct 37.4 L (37.5-50.1) % Plt Count 122 L (140-400) K/mcL Neutrophils # 10.1 H (1.6-8.9) K/mcL BMP 04/08/17 05:13 Sodium 133 L Potassium 5.0 Chloride 100 Carbon Dioxide 27 BUN 42 H Creatinine 1.45 H Glucose 459 H Calcium 8.9 - ABG Interpretation ABG results: PT/INR, D-dimer PT 13.4 Seconds (9.4-12.1) H 04/06/17 16:38 - Attending Attestation I examined this patient and my medical decision-making was reviewed with the Resident Physician on 04/08/17. I agree with the documented findings, disposition and treatment plan as described except to the extent set forth below. Mr Sotelo is currently admitted for acute influenza and resp failure. He remains moderate to high risk due to potential for worsening clinical status. Mr Sotelo is breathing a little better but still requiring oxygen. he is dyspneic with movement. No fever. Appetite OK. Exam Alert. Comfortable Mucus membranes dry Heart reg Rhonchi bilaterally I/P 1. Resp failure 2. Influenza Further diagnoses and plan as above.
[2017-04-08] MEDS: Insulin DETEMIR 100 UNIT/ML X5UNITS SQ SCH ×2 (11:44→21:01)
[2017-04-08] MEDS: Levofloxacin 750 MG/150 ML 750 MG/150 ML BAG IVPB SCH (17:59)
[2017-04-08] MEDS ORDERED: Insulin LISPRO 300 UNITS/3 ML VIAL SQ SCH (21:00)
[2017-04-09] MEDS: Ipratropium/Albuterol Neb 3 ML IH SCH ×3 (03:59→11:34)
[2017-04-09 05:32] LABS: Hematocrit 36.3 % (37.5-50.1); Hemoglobin 11.8 g/dL (12.9-16.9); Immature Granulocytes % 0.4 % (0-4); Lymphocytes # 0.7 K/mcL (0.6-4.6); Mean Corpuscular HGB Conc 32.5 g/dL (31.6-35.5); Mean Corpuscular Hemoglobin 30.3 pg (28.0-33.3); Mean Corpuscular Volume 93.3 fL (83.0-100.0); Mean Platelet Volume 12.6 fL (9.4-12.4); Monocytes # 0.8 K/mcL (0.0-1.3); Monocytes % 8.1 %; Neutrophils # 7.9 K/mcL (1.6-8.9); Platelet Count 107 K/mcL (140-400); Red Blood Count 3.89 M/mcL (4.19-5.50); Red Cell Distribution Width 13.9 % (11.5-14.5); Segmented Neutrophils % 84.5 %
[2017-04-09 05:38] LABS: BUN/Creatinine Ratio 33 (6-26); Blood Urea Nitrogen 40 mg/dL (8-23); Calcium 8.9 mg/dL (8.6-10.3); Carbon Dioxide 28 mEq/L (23-29); Chloride 102 mEq/L (98-107); Glucose 362 mg/dL (70-105); Osmolality,Calculated 306 (280-300); Potassium 4.1 mEq/L (3.5-5.1); Sodium 136 mEq/L (136-145); eGFR For African Americans > 60 (> 60); eGFR For Non-African Americans 60 (> 60)
[2017-04-09] MEDS: *HR* Heparin 5,000 UNIT/ML VIAL SQ SCH (05:58)
[2017-04-09 07:25] VITALS: BP 162/90
--- NOTE | 2017-04-09 08:56 | Discharge Summary ---
<ChristiBryon - Last Filed: 04/09/17 14:49> Date of Encounter: 04/09/17 Time of Encounter: 08:55 - Discharge Diagnosis (1) Acute respiratory failure Priority: Primary Status: Acute Qualifiers: Respiratory failure complication: hypoxia Qualified Code(s): J96.01 - Acute respiratory failure with hypoxia (2) Influenza A (H1N1) Priority: Secondary Status: Acute (3) COPD with acute exacerbation Priority: Secondary Status: Acute (4) Coronary artery disease Priority: Secondary Status: Chronic Qualifiers: Coronary Disease-Associated Artery/Lesion type: bypass graft Tribal vs. transplanted heart: [place] heart Associated angina: without angina Qualified Code(s): I25.810 - Atherosclerosis of coronary artery bypass graft(s) without angina pectoris (5) Diabetes mellitus, type II, insulin dependent Priority: Secondary Status: Chronic (6) GERARDO on CPAP Priority: Secondary Status: Chronic (7) CKD (chronic kidney disease) stage 3, GFR 30-59 ml/min Priority: Secondary Status: Chronic (8) Elevated troponin Priority: Secondary Status: Acute (9) DVT prophylaxis Priority: Secondary Status: Acute - Discharge Medications Prescriptions: Aspirin Enteric Coated [Aspirin EC] 81 mg PO DAILY #30 tab Oseltamivir [Tamiflu] 75 mg PO BID #6 capsule predniSONE [PredniSONE] 40 mg PO DAILY #3 tablet Home Medications: Allopurinol [Zyloprim 100 MG] 100 mg PO DAILY 04/02/15 [History] Carvedilol [Coreg] 25 mg PO BID 04/02/15 [History] Citalopram [CeleXA] 20 mg PO DAILY 04/02/15 [History] Furosemide [Lasix] 60 mg PO BID 04/02/15 [History] Insulin ASPART [NovoLOG] 34 unit SQ QAM 04/02/15 [History] Insulin ASPART [NovoLOG] 38 unit SQ QPM 04/02/15 [History] Montelukast [Singulair] 10 mg PO DAILY 04/02/15 [History] Potassium Chloride [K-Tab ER] 20 meq PO BID 04/02/15 [History] Ranitidine HCl [Zantac] 150 mg PO BID 04/02/15 [History] Simvastatin [Zocor] 20 mg PO HS 04/02/15 [History] Oxycodone HCl/Acetaminophen [Percocet 10-325 mg Tablet] 1 tab PO Q6H PRN #39 tab 06/14/15 [Rx] Hydralazine HCl 100 mg PO BID 04/06/17 [History] Insulin DETEMIR [Levemir Flextouch] 50 unit SQ BID 04/06/17 [History] Isosorbide MONOnitrate (24 HR) [Imdur] 60 mg PO DAILY 04/06/17 [History] Nitroglycerin [Nitrostat] 0.4 mg SL Q5M PRN 04/06/17 [History] Aspirin Enteric Coated [Aspirin EC] 81 mg PO DAILY #30 tab 04/09/17 [Rx] Oseltamivir [Tamiflu] 75 mg PO BID #6 capsule 04/09/17 [Rx] predniSONE [PredniSONE] 40 mg PO DAILY #3 tablet 04/09/17 [Rx] Allergies/Adverse Reactions: 3 Allergy/AdvReac Type Severity Reaction Status Date / Time No Known Allergies Allergy Verified 12/19/16 15:23 Date of admission: 04/06/17 21:14 Primary care physician: Teena Jimenez Consults: 04/07/17 02:03 Consult to Nurse Navigator [CONS] Routine Comment: Consult to Nurse Navigator [CONS] Routine Comment: Discharging clinician: Bryon Barraza Anticipated date of discharge: 04/09/17 - Patient Status Disposition: Home, Self-Care Condition: Fair Overall status at discharge: patient is progressing back to baseline - Discharge Instructions Instructions: Prednisone (By mouth), Aspirin (By mouth), Oseltamivir (By mouth) , Heart Failure (DC), Diabetes Mellitus Type 2 in Adults (DC), Influenza (DC), Chronic Obstructive Pulmonary Disease (DC), Bacterial Pneumonia (DC) Follow Up With: Teena Jimenez MD [Primary Care Provider] - 04/13/17 1:15 pm Additional Instructions: We electronically sent your prescriptions to [facility] pharmacy. They should be ready by the time you get there. - Diet and Activity Activity: increase activity as tolerated, resume usual activities as tolerated Diet: advance to your usual diet Hospital course: Mr. Sotelo is a 66 year old male who presented to ED with a complaint of non productive cough, SOB, vomiting. He has a PMHx of COPD, HFrEF, HTn, DM. He had sick contacts of at home. In the ED, he was hypoxic on room air in the 80s , temp of 99.5, BP of 188/111. Labs significant for LAUREN, hyperglycemia, troponin of 0.11, BNP of 1150. He was admitted for acute respiratory failure secondary to COPD exacerbation. During course of stay, he improved. Troponin was trended and was adynamic, likely demand ischemia. He tested positive for H1N1 flu on viral PCR. He was placed on tamiflu, prednisone, levaquin for COPD and flu. LAUREN resolved with rest and fluids. He was initially placed on heparin gtt but this was discontinued when troponins were trended and decreasing. He returned to baseline O2 requirement of room air. His symptoms subsided. On day of discharge , he was medically stable with no complaints. Vitals and labs were stable. He was instructed to follow up with his PCP and take all prescribed medications as instructed. - Time Spent with Patient Total time spent providing and/or coordinating discharge services: - Constitutional Vitals: Temp Pulse Resp BP Pulse Ox 98.1 F 85 16 162/90 94 04/09/17 07:24 04/09/17 07:24 04/09/17 08:02 04/09/17 07:24 04/09/17 08:02 General appearance: Present: A&O X 3, no acute distress Exam: Gen.: Vitals noted. No acute distress. AAOx3 HEENT: PERRL/EOMI, oropharynx clear, Normocephalic, atraumatic, MMM Cardiac: RRR, no murmur, +S1/S2 Pulmonary: Mild wheezing on left, much improved from previous. equal chest expansion Abdomen: soft, nontender, BS noted, no guarding MSK: ROM intact, no joint swelling noted Extremities: no BLE edema, nontender calf, no cyanosis or clubbing Neuro: A&Ox3, moves all extremities, no focal deficits Psych: Appropriate mood and behavior <Jesus Manuel Linares - Last Filed: 04/09/17 19:23> Date of Encounter: 04/09/17 - Discharge Diagnosis (1) Acute respiratory failure Status: Resolved Qualifiers: Respiratory failure complication: hypoxia Qualified Code(s): J96.01 - Acute respiratory failure with hypoxia (2) Influenza A (H1N1) Priority: Primary Status: Resolved (3) COPD with acute exacerbation Status: Resolved (4) Congestive heart failure (CHF) Priority: Secondary Status: Resolved Comments: Not on CIARA due to renal function Qualifiers: Congestive heart failure type: systolic Congestive heart failure chronicity : acute on chronic Qualified Code(s): I50.23 - Acute on chronic systolic ( congestive) heart failure (5) CKD (chronic kidney disease) stage 3, GFR 30-59 ml/min Status: Chronic (6) Coronary artery disease Status: Chronic Qualifiers: Coronary Disease-Associated Artery/Lesion type: bypass graft [place] vs. transplanted heart: [place] heart Associated angina: without angina Qualified Code(s): I25.810 - Atherosclerosis of coronary artery bypass graft(s) without angina pectoris (7) Diabetes mellitus, type II, insulin dependent Status: Chronic Date of admission: 04/06/17 21:14 Primary care physician: Teena Jimenez Consults: 04/07/17 02:03 Consult to Nurse Navigator [CONS] Routine Comment: Consult to Nurse Navigator [CONS] Routine Comment: Hospital course: Mr. Sotelo is a 66 year old male - Time Spent with Patient Total time spent providing and/or coordinating discharge services: 37min - Constitutional Vitals: Temp Pulse Resp BP Pulse Ox 98.1 F 85 16 162/90 96 04/09/17 07:24 04/09/17 07:24 04/09/17 11:35 04/09/17 07:24 04/09/17 11:35 - Attending Attestation I examined this patient and my medical decision-making was reviewed with the Resident Physician on 04/09/17. I agree with the documented findings, disposition and treatment plan as described except to the extent set forth below. Mr Sotelo has been admitted for acute resp failure and influenza. He is now afebrile and off oxygen during day. He is ready for discharge home. Exam Alert. Comfortable Mucus membranes dry Heart reg Scant wheeze Plan D/C home today
[2017-04-09] MEDS: Isosorbide MONOnitrate (24 HR) 60 MG TAB.ER.24H PO SCH (09:10)
[2017-04-09] MEDS: hydrALAZINE 25 MG TABLET PO SCH (09:10)
[2017-04-09] MEDS: predniSONE 20 MG TABLET PO SCH (09:10)
[2017-04-09] MEDS: Aspirin Enteric Coated 81 MG Tablet PO SCH (09:11)
[2017-04-09] MEDS: Insulin LISPRO 300 UNITS/3 ML VIAL SQ SCH (09:12)
[2017-04-09] MEDS: Insulin DETEMIR 100 UNIT/ML X5UNITS SQ SCH (09:15)
--- NOTE | 2017-04-10 06:53 | Electrocardiograph Report ---
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
== END 2017-04-09 13:45 | disposition home or self-care (01) ==
LOC: EMEROO 15:53 → 2NENU 15:53
PROVIDERS: ADMIT Pediatrics; ATTEND Internal Medicine

== ENCOUNTER 2017-05-31 22:29 | Observation (INO) ==
--- NOTE | 2017-05-31 22:56 | Emergency Department Note ---
Disposition Clinical Impression: Hypoxia, COPD exacerbation Disposition: Admitted As Inpatient Condition: Fair Time of Disposition: 01:31 SOB HPI - General Chief Complaint: ED Shortness of Breath/Dyspnea Stated Complaint: SOB Time Seen by Provider: 05/31/17 22:55 Source: patient, EMS Mode of arrival: ambulatory Limitations: no limitations Nursing Notes Reviewed: Yes Vital Signs Reviewed: Yes - History of Present Illness Patient is a 66-year-old male with past medical history of CAD, congestive heart failure, COPD, hypertension, diabetes. He does not usually wear oxygen at home but has required oxygen since Sunday due to increased work of breathing and increased productive cough about baseline. Admits to worsened shortness of breath with exertion. Denies any overt chest pain. He does admit to some subjective chills. Denies any nausea, vomiting, abdominal pain. He does admit to occasional episodes of diarrhea. - Related Data Home Medications Medication Instructions Recorded Confirmed Allopurinol [Zyloprim 100 MG] 100 mg PO DAILY 04/02/15 04/06/17 Carvedilol [Coreg] 25 mg PO BID 04/02/15 04/06/17 Citalopram [CeleXA] 20 mg PO DAILY 04/02/15 04/06/17 Furosemide [Lasix] 60 mg PO BID 04/02/15 04/06/17 Insulin ASPART [NovoLOG] 34 unit SQ QAM 04/02/15 04/06/17 Insulin ASPART [NovoLOG] 38 unit SQ QPM 04/02/15 04/06/17 Montelukast [Singulair] 10 mg PO DAILY 04/02/15 04/06/17 Potassium Chloride [K-Tab ER] 20 meq PO BID 04/02/15 04/06/17 Ranitidine HCl [Zantac] 150 mg PO BID 04/02/15 04/06/17 Simvastatin [Zocor] 20 mg PO HS 04/02/15 04/06/17 Hydralazine HCl 100 mg PO BID 04/06/17 04/06/17 Insulin DETEMIR [Levemir Flextouch] 50 unit SQ BID 04/06/17 04/06/17 Isosorbide MONOnitrate (24 HR) 60 mg PO DAILY 04/06/17 04/06/17 [Imdur] Nitroglycerin [Nitrostat] 0.4 mg SL Q5M PRN 04/06/17 04/06/17 Previous Rx's Medication Instructions Recorded Oxycodone HCl/Acetaminophen 1 tab PO Q6H PRN #39 tab 06/14/15 [Percocet 10-325 mg Tablet] Aspirin Enteric Coated [Aspirin EC] 81 mg PO DAILY #30 tab 04/09/17 Oseltamivir [Tamiflu] 75 mg PO BID #6 capsule 04/09/17 predniSONE [PredniSONE] 40 mg PO DAILY #3 tablet 04/09/17 Allergies Allergy/AdvReac Type Severity Reaction Status Date / Time No Known Allergies Allergy Verified 12/19/16 15:23 All systems ED: reviewed and negative except as stated. Constitutional: Reports: fever (Subjective), chills Cardiovascular: Reports: dyspnea on exertion. Denies: chest pain, palpitations Respiratory: Reports: cough, dyspnea, wheezes, sputum production Gastrointestinal: Denies: abdominal pain, nausea, vomiting, diarrhea Genitourinary: Denies: urgency, dysuria, frequency Neurological: Denies: headache, weakness, numbness Past Medical History - Past Medical History Attestation: Yes The following information was validated with the patient. Source: patient Medical history: Reports: COPD, coronary artery disease, diabetes, hypertension , other Surgical history: Reports: angioplasty/stent, coronary bypass (CABG), knee replacement, pacemaker/AICD Psychiatric history: Reports: depression - Social History Smoking Status: Never smoker Smokeless Tobacco Status: No Alcohol use: Reports: none Drug use: Reports: none Physical Exam - General Limitations: no limitations General appearance: alert - Head Head exam: atraumatic, normocephalic, normal inspection - Eye Eye exam: Present: normal appearance, PERRL, EOMI - ENT ENT exam: normal exam, normal oropharynx, mucous membranes moist - Neck Neck exam: Present: normal inspection, full ROM, trachea midline - Chest Chest inspection: Present: normal inspection, symmetric chest wall rise - Respiratory Respiratory exam: Present: other (Decreased aeration throughout and wheezes in bilateral upper and lower lobes. Mild to moderate increased work of breathing.) . Absent: stridor - Cardiovascular Cardiovascular exam: Present: regular rate, normal rhythm, normal heart sounds - Abdominal Exam Abdominal exam: Present: soft, Non-Tender. Absent: tenderness, distention, guarding, rebound, rigidity - Extremities Exam Extremities exam: Present: normal inspection, full ROM. Absent: tenderness, pedal edema - Neurological Exam Neurological exam: Present: alert, oriented X3 - Psychiatric Psychiatric exam: Present: normal affect, normal mood - Skin Skin exam: Present: warm, dry, intact, normal color Course Course Narrative: Patient is mildly hypertensive. The rest of the vitals were within normal limits. Physical exam shows heart regular rate and rhythm; lungs Decreased aeration throughout and wheezes in bilateral upper and lower lobes. Mild to moderate increased work of breathing. Abdomen soft and nontender. Patient is currently requiring 2 L nasal cannula oxygen to maintain saturation in the 90s. Patient received one breathing treatment while in route via EMS and did note some improvement after that. We will give the patient DuoNeb 3, Solu-Medrol. We will obtain EKG, chest x-ray, troponin, basic blood work. EKG shows paced rhythm with no acute ST changes, no changes from previous EKG. 01:29 EKG showed paced rhythm. Troponin negative. Chest x-ray negative for any acute cardiopulmonary process. No major abnormality and basic blood work. Patient did have improvement after breathing treatments. However, we tried to take him off oxygen and he dropped to 88%. He has no oxygen at home. He will need to be admitted for COPD exacerbation and hypoxia, further breathing treatments. Chest X-Ray 05/31/17 22:55 IMPRESSION: 1. No focal airspace disease identified 2. Cardiomegaly. D/ / Randy Segal MD / Randy Segal MD Interpreting Provider: Randy Segal MD Vital Signs Temperature 99.9 F H 05/31/17 22:31 Pulse Rate 80 05/31/17 22:31 Respiratory Rate 20 05/31/17 22:31 Blood Pressure 174/89 05/31/17 22:31 O2 Sat by Pulse Oximetry 96 05/31/17 22:31 Temperature 99.9 F H 05/31/17 22:31 Pulse Rate 76 06/01/17 01:00 Respiratory Rate 16 05/31/17 23:36 Blood Pressure 170/85 06/01/17 01:00 O2 Sat by Pulse Oximetry 90 06/01/17 01:00 Oxygen Delivery Oxygen Delivery Room Air Shortness of Breath/Dyspnea - MDM Narrative Medical decision making narrative: Patient is mildly hypertensive. The rest of the vitals were within normal limits. Physical exam shows heart regular rate and rhythm; lungs Decreased aeration throughout and wheezes in bilateral upper and lower lobes. Mild to moderate increased work of breathing. Abdomen soft and nontender. Patient is currently requiring 2 L nasal cannula oxygen to maintain saturation in the 90s. Patient received one breathing treatment while in route via EMS and did note some improvement after that. We will give the patient DuoNeb 3, Solu-Medrol. We will obtain EKG, chest x-ray, troponin, basic blood work. EKG shows paced rhythm with no acute ST changes, no changes from previous EKG. 01:29 EKG showed paced rhythm. Troponin negative. Chest x-ray negative for any acute cardiopulmonary process. No major abnormality and basic blood work. Patient did have improvement after breathing treatments. However, we tried to take him off oxygen and he dropped to 88%. He has no oxygen at home. He will need to be admitted for COPD exacerbation and hypoxia, further breathing treatments. - Medical Records Medical records reviewed: Yes I reviewed the patient's medical records. - Lab Data Lab results reviewed: Yes I reviewed the patient's lab results. Result diagrams: 05/31/17 23:12 05/31/17 23:12 Lab Results 05/31/17 05/31/17 05/31/17 Range/Units 23:12 23:12 23:12 WBC 9.9 (4.3-11.1) K/mcL RBC 3.42 L (4.19-5.50) M/mcL Hgb 10.5 L (12.9-16.9) g/dL Hct 31.3 L (37.5-50.1) % MCV 91.5 (83.0-100.0) fL MCH 30.7 (28.0-33.3) pg MCHC 33.5 (31.6-35.5) g/dL RDW 14.2 (11.5-14.5) % Plt Count 158 (140-400) K/mcL MPV 11.1 (9.4-12.4) fL Immature Gran % 0.5 (0-4) % Seg Neutrophils % 71.5 % Lymphocytes % 14.6 % Monocytes % 11.7 % Eosinophils % 1.3 % Basophils % 0.4 % Neutrophils # 7.1 (1.6-8.9) K/mcL Lymphocytes # 1.5 (0.6-4.6) K/mcL Monocytes # 1.2 (0.0-1.3) K/mcL Eosinophils # 0.1 (0.0-0.6) K/mcL Basophils # 0.0 (0.0-0.2) K/mcL Sodium 134 L (136-145) mEq/L Potassium 4.0 (3.5-5.1) mEq/L Chloride 102 (98-107) mEq/L Carbon Dioxide 25 (23-29) mEq/L BUN 18 (8-23) mg/dL Creatinine 1.23 (0.70-1.30) mg/dL Est GFR ( Amer) > 60 (> 60) Est GFR (Non-Af Amer) 59 L (> 60) BUN/Creatinine Ratio 15 (6-26) Glucose 222 H (70-105) mg/dL Calculated Osmolality 287 (280-300) Calcium 9.2 (8.6-10.3) mg/dL Troponin I 0.03 (< 0.04) ng/mL B-Natriuretic Peptide 512 H (Less than 100) pg/mL - Radiology Data Radiology results reviewed: Yes I reviewed the patient's radiology results. Chest X-Ray 05/31/17 22:55 IMPRESSION: 1. No focal airspace disease identified 2. Cardiomegaly. D/ / Randy Segal MD / Randy Segal MD Interpreting Provider: Randy Segal MD - EKG Data EKG attestation: Yes I reviewed and interpreted this EKG. EKG results narrative: 05/31/2017 at 22:37. Paced rhythm. Rate 79. CO 138. QRS 181. QTc 492. Left axis deviation. Unchanged from previous EKG on 04/06/2017. S.B.A.R. - S.B.A.R. Situation: Demographics, MOA Background: Presenting Complaint, Relevant PMH, Meds, & Allergies Assessment: Vital Signs, Course and respsone to treatment, Exam Concerns, Patient/Family Expectation, Pertinant Lab Results, Outstanding Labs Recommendation: Barrier(s) to disposition, Recommendation based on pending studies, treatments, or consults S.B.A.R. Report Given to: Dr. Sugar RodriguezAPepito Repor Time: 01:31 Attestation Statement - Attestation Attestation: I, Michele An MD, personally evaluated this patient and discussed their management with the resident physician. I reviewed the resident's note and agree with the documented findings, medical decision making, and plan of care. 66-year-old male with history of COPD as well as CHF presents to the emergency department with a complaint of increased shortness of breath for the past 3 days. Patient states he has had to sleep in a recliner because he was unable to lie down. He states he tries to lie down he cannot breathe. He complains of increased swelling of his ankles. No chest pain. He also complains of some increased cough with some sputum production varying color. No hemoptysis. On examination patient is a well-developed obese elderly male in no acute distress. He is alert and oriented 3. There is no cyanosis or diaphoresis. Breath sounds are decreased bilaterally. No definite rales or wheezes noted. Heart regular rate and rhythm. Abdomen soft and nontender with normal bowel sounds. 2+ pitting edema of the lower extremities bilaterally. EKG shows a paced rhythm. Chest x-ray shows cardiomegaly with no focal airspace disease. Labs reviewed. The hospitalist, Dr. Wooten, was consulted and accepted admission of the patient.
[2017-05-31] MEDS ORDERED: methylPREDNISolone 125 MG/2 ML VIAL IVP ONE (23:09)
[2017-05-31] MEDS ORDERED: Ipratropium/Albuterol Neb 3 ML IH ONE (23:09)
[2017-05-31 23:22] LABS: Basophils % 0.4 %; Eosinophils # 0.1 K/mcL (0.0-0.6); Eosinophils % 1.3 %; Hematocrit 31.3 % (37.5-50.1); Hemoglobin 10.5 g/dL (12.9-16.9); Immature Granulocytes % 0.5 % (0-4); Lymphocytes # 1.5 K/mcL (0.6-4.6); Lymphocytes % 14.6 %; Mean Corpuscular HGB Conc 33.5 g/dL (31.6-35.5); Mean Corpuscular Hemoglobin 30.7 pg (28.0-33.3); Mean Corpuscular Volume 91.5 fL (83.0-100.0); Mean Platelet Volume 11.1 fL (9.4-12.4); Monocytes # 1.2 K/mcL (0.0-1.3); Monocytes % 11.7 %; Neutrophils # 7.1 K/mcL (1.6-8.9); Platelet Count 158 K/mcL (140-400); Red Blood Count 3.42 M/mcL (4.19-5.50); Red Cell Distribution Width 14.2 % (11.5-14.5); Segmented Neutrophils % 71.5 %
[2017-05-31 23:43] LABS: BUN/Creatinine Ratio 15 (6-26); Blood Urea Nitrogen 18 mg/dL (8-23); Calcium 9.2 mg/dL (8.6-10.3); Carbon Dioxide 25 mEq/L (23-29); Chloride 102 mEq/L (98-107); Glucose 222 mg/dL (70-105); Osmolality,Calculated 287 (280-300); Sodium 134 mEq/L (136-145); eGFR For African Americans > 60 (> 60); eGFR For Non-African Americans 59 (> 60)
[2017-05-31 23:44] LABS: Troponin I 0.03 ng/mL (< 0.04)
--- NOTE | 2017-06-01 01:59 | Internal Med History&Physical ---
Date of Encounter: 06/01/17 Time of Encounter: 01:56 Assessment and Plan (1) Congestive heart failure (CHF) Current visit: No Status: Resolved Patient has paroxysmal nocturnal dyspnea, increased leg swelling, BNP is elevated, consistent with acute on chronic diastolic CHF will give IV Lasix Qualifiers: Qualified Code(s): I50.23 - Acute on chronic systolic (congestive) heart failure (2) COPD with acute exacerbation Current visit: No Status: Resolved Patient has COPD but not on home O2, he has productive cough for 5 days chest x- ray is negative for pneumonia. Likely from COPD exacerbation we will give steroids and antibiotics (3) Diabetes mellitus, type II, insulin dependent Current visit: No Status: Chronic Diabetes type 2 uncontrolled with hypoglycemia will add sliding scale continue home medication (4) Coronary artery disease Current visit: No Status: Chronic Patient has CAD status post CABG, we will check a troponin 3 times Qualifiers: Coronary Disease-Associated Artery/Lesion type: bypass graft [place] vs. transplanted heart: [place] heart Associated angina: without angina Qualified Code(s): I25.810 - Atherosclerosis of coronary artery bypass graft(s) without angina pectoris (5) GERARDO on CPAP Current visit: No Status: Chronic (6) Chronic renal failure, stage 2 (mild) Current visit: No Status: Acute (7) DVT prophylaxis Current visit: No Status: Acute Heparin subcutaneous Internal Medicine - H&P: HPI Chief complaint: sob Admitted From: Home Plans for Post Hospital Care: Home History of present illness: Mr. Sotelo is a 66 year old male with past medical history of CAD, congestive heart failure, COPD, hypertension, diabetes, presented to ER for productive cough was initially on his breasts for 5 days. Patient has COPD but not on home O2, he developed cough 5 days ago, productive with yellow greenish sputum is. he also complains of bilateral rib cage chest pain when he coughs. He states noticed the leg swelling, unable to lie flat at night, he has been sleeping in a reclining for 3 days he has nocturnal paroxysmal dyspnea. Patient has a history of CAD status post CABG in 2012 n with normal EF. 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 Denies fever, he does have diarrhea over last 2 days, 4-5 times a day. IN ER he has negative trop,BNP 512, CXR is negative for pneumonia. He was hypoxic admtted for possible CODP exacerbation and CHF exacerbation. Past Med Surg Social Fam HX - Past Medical History Medical history: COPD, coronary artery disease, diabetes, hypertension, other Psychiatric history: depression - Past Surgical History Surgical History: angioplasty/stent, coronary bypass (CABG), knee replacement, pacemaker/AICD - Social History Smoking Status: Never smoker Smokeless Tobacco Status: No Alcohol use: none Drug use: none - Family History Mother Adopted: No Living Status: Hx Family Neurologic Disorders: Yes (dementia) Father Living Status: Hx Family Cardiac Disorders: Yes Hx Family Endocrine Disorder: Yes (DM) Internal Medicine - H&P: Meds Allopurinol [Zyloprim 100 MG] 100 mg PO DAILY 04/02/15 [History] Carvedilol [Coreg] 25 mg PO BID 04/02/15 [History] Citalopram [CeleXA] 20 mg PO DAILY 04/02/15 [History] Furosemide [Lasix] 60 mg PO BID 04/02/15 [History] Insulin ASPART [NovoLOG] 34 unit SQ QAM 04/02/15 [History] Insulin ASPART [NovoLOG] 38 unit SQ QPM 04/02/15 [History] Montelukast [Singulair] 10 mg PO DAILY 04/02/15 [History] Potassium Chloride [K-Tab ER] 20 meq PO BID 04/02/15 [History] Ranitidine HCl [Zantac] 150 mg PO BID 04/02/15 [History] Simvastatin [Zocor] 20 mg PO HS 04/02/15 [History] Oxycodone HCl/Acetaminophen [Percocet 10-325 mg Tablet] 1 tab PO Q6H PRN #39 tab 06/14/15 [Rx] Hydralazine HCl 100 mg PO BID 04/06/17 [History] Insulin DETEMIR [Levemir Flextouch] 50 unit SQ BID 04/06/17 [History] Isosorbide MONOnitrate (24 HR) [Imdur] 60 mg PO DAILY 04/06/17 [History] Nitroglycerin [Nitrostat] 0.4 mg SL Q5M PRN 04/06/17 [History] Aspirin Enteric Coated [Aspirin EC] 81 mg PO DAILY #30 tab 04/09/17 [Rx] Oseltamivir [Tamiflu] 75 mg PO BID #6 capsule 04/09/17 [Rx] predniSONE [PredniSONE] 40 mg PO DAILY #3 tablet 04/09/17 [Rx] 3 Allergy/AdvReac Type Severity Reaction Status Date / Time No Known Allergies Allergy Verified 12/19/16 15:23 All Systems PM: All systems review was performed and is negative for pertinent findings except as documented above in the HPI. - Constitutional Vitals: Temp Pulse Resp BP Pulse Ox 99.9 F H 76 16 170/85 90 05/31/17 22:31 06/01/17 01:00 05/31/17 23:36 06/01/17 01:00 06/01/17 01:00 General appearance: Present: A&O X 3, pleasant, obese Exam: CONSTITUTIONAL: Patient appears as an age appropriate male well developed, in no acute distress. EYES Clear sclerae, bilateral pupils are equal, reactive to light and accommodation. Extraocular movements are intact RESPIRATORY: No accessory muscle use, bilateral crackles/rales. CARDIOVASCULAR: Regular heart rate, normal S1 and S2, no murmurs GASTROINTESTINAL: bowel sounds present, soft, no tenderness. No hepatosplenomegaly. No bilateral CVA tenderness MUSCULOSKELETAL: Joints in normal range of motion, no clubbing, ++ edema, no cyanosis. Bilateral peripheral pulses 2+ LYMPHATIC no lymphadenopathy in neck, groin and axilla bilaterally, no thyromegaly. NEUROLOGIC: CN II to XII are grossly intact, no focal neurological deficit. Deep tendon reflexes 2+ bilaterally. Normal light touch sensation to upper and lower extremity PSYCHIATRIC: Oriented x3, with good insight, mood is euthymic. No hallucinations or delusions. SKIN: Skin warm and dry, no rashes, no open wound. Internal Med - H&P Results - Labs CBC & Chem 7: 05/31/17 23:12 05/31/17 23:12 Labs: Short CBC 05/31/17 Range/Units 23:12 WBC 9.9 (4.3-11.1) K/mcL Hgb 10.5 L (12.9-16.9) g/dL Hct 31.3 L (37.5-50.1) % Plt Count 158 (140-400) K/mcL Neutrophils # 7.1 (1.6-8.9) K/mcL BMP 05/31/17 23:12 Sodium 134 L Potassium 4.0 Chloride 102 Carbon Dioxide 25 BUN 18 Creatinine 1.23 Glucose 222 H Calcium 9.2 Cardiac Enzymes 05/31/17 Range/Units 23:12 Troponin I 0.03 (< 0.04) ng/mL - Impressions ITS Impressions Chest X-Ray 05/31/17 22:55 IMPRESSION: 1. No focal airspace disease identified 2. Cardiomegaly. D/ / Randy Segal MD / Randy Segal MD Interpreting Provider: Randy Segal MD
[2017-06-01] MEDS ORDERED: Albuterol 2.5 MG/3 ML NEBULIZER IH PRN (02:27)
[2017-06-01] MEDS ORDERED: Naloxone 0.4 MG/ML INJ IVP PRN (02:27)
[2017-06-01] MEDS ORDERED: Furosemide 40 MG/4 ML VIAL IVP ONE (02:33)
[2017-06-01 03:38] LABS: Alanine Aminotransferase 11 Units/L (7-52); Albumin 4.1 g/dL (3.5-5.7); Albumin/Globulin Ratio 1.3 (1.1-2.2); Alkaline Phosphatase 81 Units/L (34-104); Aspartate Amino Transferase 15 Units/L (13-39); BUN/Creatinine Ratio 14 (6-26); Blood Urea Nitrogen 17 mg/dL (8-23); Calcium 9.6 mg/dL (8.6-10.3); Carbon Dioxide 26 mEq/L (23-29); Chloride 102 mEq/L (98-107); Globulin 3.1 g/dL (2.4-3.5); Glucose 230 mg/dL (70-105); Osmolality,Calculated 289 (280-300); Potassium 3.9 mEq/L (3.5-5.1); Sodium 135 mEq/L (136-145); Total Protein 7.2 g/dL (6.4-8.9); eGFR For African Americans > 60 (> 60); eGFR For Non-African Americans > 60 (> 60)
[2017-06-01 03:41] LABS: Basophils % 0.4 %; Eosinophils % 0.4 %; Hematocrit 34.7 % (37.5-50.1); Hemoglobin 11.2 g/dL (12.9-16.9); Immature Platelets 9.1 % (1.1-6.1); Lymphocytes # 0.8 K/mcL (0.6-4.6); Lymphocytes % 7.5 %; Mean Corpuscular HGB Conc 32.3 g/dL (31.6-35.5); Mean Corpuscular Hemoglobin 29.9 pg (28.0-33.3); Mean Corpuscular Volume 92.5 fL (83.0-100.0); Mean Platelet Volume 11.5 fL (9.4-12.4); Monocytes # 0.4 K/mcL (0.0-1.3); Monocytes % 4.2 %; Neutrophils # 8.8 K/mcL (1.6-8.9); Nucleated Red Blood Cells 0.6 /100 WBC (0); Platelet Count 167 K/mcL (140-400); Red Blood Count 3.75 M/mcL (4.19-5.50); Segmented Neutrophils % 86.5 %
[2017-06-01] MEDS: *HR* Heparin 5,000 UNIT/ML VIAL SQ SCH ×3 (05:21→20:17)
[2017-06-01] MEDS: Tiotropium 18 MCG inhalation IH SCH (07:43)
[2017-06-01] MEDS: predniSONE 20 MG TABLET PO SCH (08:03)
[2017-06-01] MEDS: cefTRIAXone 1,000 MG in Water for inj. (sterile) 20 ML 10 ML IVP SCH (08:04)
[2017-06-01] MEDS ORDERED: Azithromycin 250 MG TABLET PO SCH (09:00)
--- NOTE | 2017-06-01 09:52 | Internal Med Progress Note ---
<Sergio Jarvis - Last Filed: 06/01/17 10:35> Date of Encounter: 06/01/17 Time of Encounter: 09:30 - Assessment and plan (1) COPD with acute exacerbation Current Visit: Yes Status: Acute Assessment and plan: Acute exacerbation of COPD likely due to bronchitis Patient reports worsening shortness of breath and cough productive of yellow/ green mucus for 5 days prior to presentation Wheezing was present in ER Chest x-ray did not show any acute findings We will stop patient azithromycin We will give 5 day course of prednisone Continue breathing treatments with albuterol Continue home inhalers (2) Congestive heart failure (CHF) Current Visit: Yes Status: Acute Assessment and plan: History of CHF with reduced ejection fraction Last echocardiogram performed in 2014 showed decreased ejection fraction of 45- 50% Patient reports increased weight gain and orthopnea prior to presentation JVD and rales on auscultation at admission No JVD observed today +1 pitted edema in bilateral lower extremities Patient takes 60 mg by mouth Lasix twice a day at home We will start patient on 40 mg IV twice a day Continue patient home 20 mEq twice a day potassium (3) CKD (chronic kidney disease) stage 3, GFR 30-59 ml/min Current Visit: Yes Status: Chronic Assessment and plan: Renal function at baseline Avoid nephrotoxic agents We will monitor renal function with daily labs (4) Diabetes mellitus, type II, insulin dependent Current Visit: Yes Status: Chronic Assessment and plan: Patient has history of insulin-dependent diabetes mellitus Patient taking 70 units Levemir in the morning and 80 units Levemir in the evening Patient also taking 32 units twice a day of NovoLog Anticipated increased blood sugars with steroid usage We will start 75 units twice a day Levemir 21 units 3 times a day NovoLog High-dose insulin sliding scale Before meals at bedtime Accu-Cheks Diabetic diet (5) DVT prophylaxis Current Visit: Yes Status: Acute Assessment and plan: 5000 units heparin subcutaneous every 8 hours - Subjective Interval history: Patient is resting comfortably in bed. He reports that he continues to have productive cough, mild shortness of breath, fever, and chills. She does report that he has had some diarrhea prior to admission, but denies having any since. He continues to report pleuritic chest pain when he coughs. He denies hemoptysis, denies of the chest pain, denies abdominal pain, denies dysuria. He admits he does not check his weight every day, though feels as if he is gained some weight recently. - Constitutional Vitals: Temp Pulse Resp BP Pulse Ox 97.9 F 83 20 166/90 90 06/01/17 07:42 06/01/17 07:42 06/01/17 07:42 06/01/17 07:42 06/01/17 07:42 General appearance: Present: A&O X 3, pleasant, obese Exam: General: Cooperative, pleasant, no acute distress, alert and oriented 3, answers questions appropriately HEENT: Normocephalic, atraumatic, neck supple, trachea midline, Conjunctiva pink , sclera anicteric, oral mucosa moist, no orophargeal erythema or exudates Respiratory: No accessory muscle usage, clear to auscultation bilaterally, no wheezes/rhonchi/rales appreciated Cardiovascular: Regular rate and rhythm, S1 and S2 present, no murmurs/rubs/ gallops/clicks appreciated, no JVD appreciated GI/abdominal: Nondistended, nontender, soft, normal bowel sounds, no peritoneal signs Extremities: No calf tenderness, noncyanotic, +1 bilateral lower extremity pitted edema, warm, lower extremity pulses palpable and symmetrical Neurological: Alert and oriented 3, no facial droop, no focal deficits Skin: Dry, intact, normal color Internal Medicine: Result - Labs CBC & Chem 7: 06/01/17 03:08 06/01/17 03:08 Labs: Short CBC 06/01/17 Range/Units 03:08 WBC 10.1 (4.3-11.1) K/mcL Hgb 11.2 L (12.9-16.9) g/dL Hct 34.7 L (37.5-50.1) % Plt Count 167 (140-400) K/mcL Neutrophils # 8.8 (1.6-8.9) K/mcL BMP 06/01/17 03:08 Sodium 135 L Potassium 3.9 Chloride 102 Carbon Dioxide 26 BUN 17 Creatinine 1.20 Glucose 230 H Calcium 9.6 Cardiac Enzymes 06/01/17 Range/Units 03:08 Troponin I 0.03 (< 0.04) ng/mL Liver Function 06/01/17 Range/Units 03:08 Total Bilirubin 1.0 (0.3-1.0) mg/dL AST 15 (13-39) Units/L ALT 11 (7-52) Units/L Alkaline Phosphatase 81 (34-104) Units/L Albumin 4.1 (3.5-5.7) g/dL Consult Discharge Plan - Plan Referrals: Teena Jimenez MD [Primary Care Provider] - 06/08/17 10:45 am <Osmel Nova H - Last Filed: 06/01/17 16:27> Date of Encounter: 06/01/17 - Constitutional Vitals: Temp Pulse Resp BP Pulse Ox 97.8 F 87 18 166/85 92 06/01/17 15:56 06/01/17 15:56 06/01/17 15:56 06/01/17 15:56 06/01/17 15:56 Internal Medicine: Result - Labs CBC & Chem 7: 06/01/17 03:08 06/01/17 03:08 Labs: Short CBC 06/01/17 Range/Units 03:08 WBC 10.1 (4.3-11.1) K/mcL Hgb 11.2 L (12.9-16.9) g/dL Hct 34.7 L (37.5-50.1) % Plt Count 167 (140-400) K/mcL Neutrophils # 8.8 (1.6-8.9) K/mcL BMP 06/01/17 03:08 Sodium 135 L Potassium 3.9 Chloride 102 Carbon Dioxide 26 BUN 17 Creatinine 1.20 Glucose 230 H Calcium 9.6 Cardiac Enzymes 06/01/17 Range/Units 03:08 Troponin I 0.03 (< 0.04) ng/mL Liver Function 06/01/17 Range/Units 03:08 Total Bilirubin 1.0 (0.3-1.0) mg/dL AST 15 (13-39) Units/L ALT 11 (7-52) Units/L Alkaline Phosphatase 81 (34-104) Units/L Albumin 4.1 (3.5-5.7) g/dL - Attending Attestation acute systolic CHF and acute COPD exacerbation due to acute bacterial bronchitis continue steroids, lasix and Rocephin I examined this patient and my medical decision-making was reviewed with the Resident Physician. I agree with the documented findings, disposition and treatment plan as described except to the extent set forth below.
[2017-06-01] MEDS ORDERED: Nitroglycerin 0.4 MG TAB.SUBL SL PRN (10:06)
[2017-06-01] MEDS ORDERED: *HR* Dextrose 50 % in Water (Syg) 50 ML SYRINGE IVP PRN (10:14)
[2017-06-01] MEDS ORDERED: D5% in Water 1,000 ML IVC PRN (10:14)
[2017-06-01] MEDS ORDERED: Dextrose Gel 15 GM/37.5 ML TUBE PO PRN ×2 (10:14)
[2017-06-01] MEDS ORDERED: Insulin DETEMIR 100 UNIT/ML X5UNITS SQ SCH (10:15)
[2017-06-01] MEDS ORDERED: Furosemide 20 MG TABLET PO SCH (10:30)
[2017-06-01] MEDS ORDERED: Furosemide 40 MG in 0.9 % Sodium Chloride 50 ML IVPB SCH (10:30)
[2017-06-01] MEDS: Aspirin Enteric Coated 81 MG Tablet PO SCH (11:09)
[2017-06-01] MEDS: Furosemide 40 MG/4 ML VIAL IVP SCH ×2 (11:09→16:20)
[2017-06-01] MEDS: Famotidine 20 MG TABLET PO SCH (11:09)
[2017-06-01] MEDS: Isosorbide MONOnitrate (24 HR) 60 MG TAB.ER.24H PO SCH (11:09)
[2017-06-01] MEDS ORDERED: Insulin LISPRO 300 UNITS/3 ML VIAL SQ SCH ×2 (12:00→21:00)
[2017-06-01] MEDS: Insulin LISPRO 300 UNITS/3 ML VIAL SQ SCH ×3 (12:09→16:22)
[2017-06-01] MEDS ORDERED: Insulin LISPRO 300 UNITS/3 ML VIAL SQ ONE (13:23)
[2017-06-01] MEDS: *HR* OxyCODONE/APAP 10/325 TABLET PO PRN (15:42)
[2017-06-01] MEDS: hydrALAZINE 25 MG TABLET PO SCH (20:16)
[2017-06-01] MEDS: hydrOXYzine pamoate 25 MG CAPSULE PO SCH (20:16)
[2017-06-01] MEDS: Insulin DETEMIR 100 UNIT/ML X5UNITS SQ SCH (20:17)
[2017-06-02] MEDS: *HR* OxyCODONE/APAP 10/325 TABLET PO PRN ×2 (00:01→08:35)
[2017-06-02 03:59] LABS: Basophils % 0.1 %; Hematocrit 32.5 % (37.5-50.1); Hemoglobin 11.1 g/dL (12.9-16.9); Immature Granulocytes % 0.6 % (0-4); Lymphocytes # 0.9 K/mcL (0.6-4.6); Lymphocytes % 5.7 %; Mean Corpuscular HGB Conc 34.2 g/dL (31.6-35.5); Mean Corpuscular Hemoglobin 30.8 pg (28.0-33.3); Mean Corpuscular Volume 90.3 fL (83.0-100.0); Mean Platelet Volume 11.6 fL (9.4-12.4); Monocytes # 1.4 K/mcL (0.0-1.3); Monocytes % 8.9 %; Platelet Count 180 K/mcL (140-400); Red Cell Distribution Width 13.6 % (11.5-14.5); Segmented Neutrophils % 84.7 %
[2017-06-02 04:27] LABS: BUN/Creatinine Ratio 28 (6-26); Blood Urea Nitrogen 33 mg/dL (8-23); Calcium 9.3 mg/dL (8.6-10.3); Carbon Dioxide 27 mEq/L (23-29); Chloride 98 mEq/L (98-107); Glucose 327 mg/dL (70-105); Magnesium 2.3 mg/dL (1.6-2.6); Osmolality,Calculated 300 (280-300); Phosphorous 3.4 mg/dL (2.7-4.5); Potassium 4.2 mEq/L (3.5-5.1); Sodium 135 mEq/L (136-145); eGFR For African Americans > 60 (> 60); eGFR For Non-African Americans > 60 (> 60)
[2017-06-02] MEDS: Famotidine 20 MG TABLET PO SCH (06:27)
[2017-06-02] MEDS: *HR* Heparin 5,000 UNIT/ML VIAL SQ SCH (06:27)
[2017-06-02] MEDS: cefTRIAXone 1,000 MG in Water for inj. (sterile) 20 ML 10 ML IVP SCH (08:13)
[2017-06-02] MEDS: hydrOXYzine pamoate 25 MG CAPSULE PO SCH (08:14)
[2017-06-02] MEDS: Aspirin Enteric Coated 81 MG Tablet PO SCH (08:14)
[2017-06-02] MEDS: hydrALAZINE 25 MG TABLET PO SCH (08:14)
[2017-06-02] MEDS: Furosemide 40 MG/4 ML VIAL IVP SCH (08:15)
[2017-06-02] MEDS: Isosorbide MONOnitrate (24 HR) 60 MG TAB.ER.24H PO SCH (08:15)
[2017-06-02] MEDS: predniSONE 20 MG TABLET PO SCH (08:15)
[2017-06-02] MEDS: Insulin LISPRO 300 UNITS/3 ML VIAL SQ SCH ×4 (08:20→13:05)
[2017-06-02] MEDS: Insulin DETEMIR 100 UNIT/ML X5UNITS SQ SCH (08:21)
[2017-06-02] MEDS: Tiotropium 18 MCG inhalation IH SCH (08:41)
--- NOTE | 2017-06-02 10:03 | Discharge Summary ---
Date of Encounter: 06/02/17 Time of Encounter: 09:54 - Discharge Diagnosis (1) Diastolic CHF Priority: Primary Status: Acute Qualifiers: Heart failure chronicity: acute on chronic Qualified Code(s): I50.33 - Acute on chronic diastolic (congestive) heart failure (2) COPD with acute exacerbation Priority: Secondary Status: Acute (3) CKD (chronic kidney disease) stage 3, GFR 30-59 ml/min Priority: Secondary Status: Chronic (4) Diabetes mellitus, type II, insulin dependent Priority: Secondary Status: Chronic (5) DVT prophylaxis Priority: Secondary Status: Acute Hospital course: Mr. Sotelo is a 66 year old male presented with chief complaint of productive cough and shortness of breath. Cough of yellow greenish sputum. He also had bilateral rib cage chest pain when he coughs. He reported worsening lower extremity swelling and unable to lie flat at night. He was hypoxic on admission required oxygen supplementation. Chest x-ray showed evidence of cardiomegaly negative for infection. Patient was started on antibiotics, steroids, nebulizer treatments for COPD exacerbation. Patient was started on IV Lasix for CHF exacerbation. Patient's troponins negative 3. His BNP was 512. He was continued on his CPAP at night for obstructive sleep apnea. Patient's respiratory status improved after treatment and he was weaned off oxygen. This morning he states he does not have shortness of breath. He continues to have productive cough which has improved. He is afebrile. His lower extremity swelling has resolved. He is able to tolerate his diet and ambulate independently. Patient will be discharged on 3 more days of Omnicef and Zithromax and prednisone. He will receive a prescription for nebulizer supplies, nebulizer treatment, albuterol inhaler, and Mucinex. Patient should follow-up with cardiology upon discharge. Patient should follow-up with PCP upon discharge. Patient's continue home dose of Lasix. Follow a low-salt 2000 mg limit head with a 2 L fluid restricted diet. Patient was educated on weighing himself in the morning and afternoon to assess for water weight gain. Discharge discussed with: patient - Time Spent with Patient Total time spent providing and/or coordinating discharge services: - Discharge Medications Prescriptions: Albuterol Sulfate [Albuterol Inhaler] 2 puff IH [id number] PRN #1 inhaler PRN Reason: Shortness Of Breath Albuterol Neb [Proventil Neb] 2.5 mg IH Q6H PRN #25 inhsol PRN Reason: Shortness Of Breath/Wheezing Azithromycin 250 mg PO DAILY #3 tablet Cefdinir [Omnicef] 300 mg PO BID #6 capsule GuaiFENesin ER [Mucinex] 600 mg PO BID PRN #10 tbbp.12hr PRN Reason: Congestion Nebulizer [Aeroeclipse] 1 each MC Q6H #1 each Nebulizer Accessories [Sootheneb [id number] Adult Mask] 1 each MC Q6H #1 each predniSONE [PredniSONE] 40 mg PO DAILY #3 tablet Home Medications: Allopurinol [Zyloprim 100 MG] 100 mg PO DAILY 04/02/15 [History] Carvedilol [Coreg] 25 mg PO BID 04/02/15 [History] Citalopram [CeleXA] 20 mg PO DAILY 04/02/15 [History] Furosemide [Lasix] 60 mg PO BID 04/02/15 [History] Insulin ASPART [NovoLOG] 32 unit SQ BID 04/02/15 [History] Montelukast [Singulair] 10 mg PO DAILY 04/02/15 [History] Potassium Chloride [K-Tab ER] 20 meq PO BID 04/02/15 [History] Ranitidine HCl [Zantac] 150 mg PO BID 04/02/15 [History] Simvastatin [Zocor] 20 mg PO HS 04/02/15 [History] Oxycodone HCl/Acetaminophen [Percocet 10-325 mg Tablet] 1 tab PO Q6H PRN #39 tab 06/14/15 [Rx] Hydralazine HCl 100 mg PO BID 04/06/17 [History] Insulin DETEMIR [Levemir Flextouch] 80 unit SQ QPM 04/06/17 [History] Isosorbide MONOnitrate (24 HR) [Imdur] 60 mg PO DAILY 04/06/17 [History] Nitroglycerin [Nitrostat] 0.4 mg SL Q5M PRN 04/06/17 [History] Aspirin Enteric Coated [Aspirin EC] 81 mg PO DAILY #30 tab 04/09/17 [Rx] Insulin DETEMIR [Levemir Flextouch] 70 unit SQ QAM 06/01/17 [History] hydrOXYzine HCl [Hydroxyzine HCl] 25 mg PO BID 06/01/17 [History] Albuterol Neb [Proventil Neb] 2.5 mg IH Q6H PRN #25 inhsol 06/02/17 [Rx] Albuterol Sulfate [Albuterol Inhaler] 2 puff IH [id number] PRN #1 inhaler 06/02/17 [Rx] Azithromycin 250 mg PO DAILY #3 tablet 06/02/17 [Rx] Cefdinir [Omnicef] 300 mg PO BID #6 capsule 06/02/17 [Rx] GuaiFENesin ER [Mucinex] 600 mg PO BID PRN #10 tbbp.12hr 06/02/17 [Rx] Nebulizer Accessories [Sootheneb [id number] Adult Mask] 1 each MC Q6H #1 each [Rx] Nebulizer [Aeroeclipse] 1 each MC Q6H #1 each 06/02/17 [Rx] predniSONE [PredniSONE] 40 mg PO DAILY #3 tablet 06/02/17 [Rx] Allergies/Adverse Reactions: 3 Allergy/AdvReac Type Severity Reaction Status Date / Time No Known Allergies Allergy Verified 06/01/17 09:41 Date of admission: 06/01/17 02:42 Primary care physician: Teena Jimenez Consults: 06/01/17 12:28 Consult to Occupational Therapy [CONS] Routine Comment: Evaluate, develop and implement POC Reason for Consult: Falls at home Does patient have active BEDREST order?: No Is patient medically & hemodynamically stable?: Yes Consult to Physical Therapy [CONS] Routine Comment: Evaluate, develop and implement POC Reason for Consult: Falls at home Does patient have active BEDREST order?: No Is patient medically & hemodynamically stable?: Yes Discharging clinician: Dov Flores Anticipated date of discharge: 06/02/17 - Constitutional Vitals: Temp Pulse Resp BP Pulse Ox 97.5 F L 72 17 142/81 93 06/02/17 07:38 06/02/17 07:38 06/02/17 07:38 06/02/17 07:38 06/02/17 07:38 General appearance: Present: A&O X 3, pleasant, obese - Other Additional findings: General: Pleasant without distress HEENT: Head atraumatic, normocephalic, EOMI, PERRLA, neck nontender to palpation , absent lymphadenopathy, Moist Mucous Membranes, Heart: Regular rate and rhythm with no murmur Lungs: Clear to auscultation bilaterally Abdomen: Soft nontender, nondistended positive bowel sounds Skin: warm and dry Extremities: Absent pedal edema, Neuro: Cranial nerves II through XII intact, UE and LE sensation equal bilaterally, UE and LEstrength 5/5, alert oriented 3, Vascular: Pedal and radial pulses 2 out of 4 - Patient Status Disposition: Home, Self-Care Condition: Fair Functional capacity at discharge: independent ambulation Overall status at discharge: patient is back to baseline - Discharge Instructions Follow Up With: Teena Jimenez MD [Primary Care Provider] - 06/08/17 10:45 am Arben Nava DO [Partnered Physician] - - Diet and Activity Activity: increase activity as tolerated Diet: diabetic diet, low fat, low cholesterol, low salt diet
[2017-06-02 12:00] VITALS: BP 136/75
--- NOTE | 2017-06-05 21:56 | Electrocardiograph Report ---
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
== END 2017-06-02 15:45 | disposition home or self-care (01) ==
LOC: EMEROO 22:29 → 2NNU 22:29 → SUATTDRO 06-01 02:42 → 2NNU 06-01 03:28
PROVIDERS: ADMIT Internal Medicine; ATTEND Internal Medicine

== ENCOUNTER 2018-04-25 14:12 | Observation (INO) ==
--- NOTE | 2018-04-25 14:33 | Emergency Department Note ---
Disposition Clinical Impression: Confusion Disposition: Admitted As Inpatient Condition: Fair Referrals: Teena Jimenez MD [Primary Care Provider] - Forms: ED Satisfaction Letter General Adult HPI - General Chief complaint: ED Altered Mental Status Stated complaint: confusion Time Seen by Provider: 04/25/18 14:14 Source: patient Limitations: no limitations Nursing Notes Reviewed: Yes Vital Signs Reviewed: Yes - History of Present Illness Pain Scale: 10 - Related Data Home Medications Medication Instructions Recorded Confirmed Allopurinol [Zyloprim 100 MG] 100 mg PO DAILY 04/02/15 03/14/18 Carvedilol [Coreg] 25 mg PO BID 04/02/15 03/14/18 Citalopram [CeleXA] 20 mg PO DAILY 04/02/15 03/14/18 Furosemide [Lasix] 60 mg PO BID 04/02/15 03/14/18 Insulin ASPART [NovoLOG] 32 unit SQ BID 04/02/15 03/14/18 Montelukast [Singulair] 10 mg PO DAILY 04/02/15 03/14/18 Potassium Chloride [K-Tab ER] 20 meq PO DAILY 04/02/15 03/14/18 Ranitidine HCl [Zantac] 150 mg PO BID 04/02/15 03/14/18 Simvastatin [Zocor] 20 mg PO HS 04/02/15 03/14/18 Hydralazine HCl 100 mg PO BID 04/06/17 03/14/18 Isosorbide MONOnitrate (24 HR) 60 mg PO DAILY 04/06/17 03/14/18 [Imdur] Nitroglycerin [Nitrostat] 0.4 mg SL Q5M PRN 04/06/17 03/14/18 hydrOXYzine HCl [Hydroxyzine HCl] 25 mg PO BID 06/01/17 03/14/18 Dulaglutide [Trulicity] 0.75 mg PO QWEEK 03/14/18 03/14/18 Previous Rx's Medication Instructions Recorded Aspirin Enteric Coated [Aspirin EC] 81 mg PO DAILY #30 tab 04/09/17 Albuterol Sulfate [Albuterol 2 puff IH [id number] PRN #1 inhaler 06/02/17 Inhaler] Lisinopril [Zestril] 5 mg PO DAILY 30 Days #30 tablet 03/15/18 Allergies Allergy/AdvReac Type Severity Reaction Status Date / Time No Known Allergies Allergy Verified 03/13/18 22:05 Past Medical History - Past Medical History Medical history: Reports: cardiomyopathy, CHF, COPD, coronary artery disease, diabetes, hypertension, other Surgical history: Reports: angioplasty/stent, coronary bypass (CABG), knee replacement, pacemaker/AICD Psychiatric history: Reports: depression - Social History Smoking Status: Never smoker Smokeless Tobacco Status: No Alcohol use: Reports: none Drug use: Reports: none Physical Exam - General Limitations: no limitations General appearance: alert, in no apparent distress Course Vital Signs Temperature 97.5 F L 04/25/18 14:18 Pulse Rate 63 04/25/18 14:18 Respiratory Rate 18 04/25/18 14:18 Blood Pressure 190/88 04/25/18 14:18 O2 Sat by Pulse Oximetry 94 04/25/18 14:18 Temperature 97.5 F L 04/25/18 14:18 Pulse Rate 60 04/25/18 15:55 Respiratory Rate 20 04/25/18 15:55 Blood Pressure 165/69 04/25/18 15:55 O2 Sat by Pulse Oximetry 94 04/25/18 14:18 Oxygen Delivery Oxygen Delivery Room Air Medical Decision Making - [facility] Narrative Medical decision making narrative: Chest X-Ray 04/25/18 14:25 IMPRESSION: 1. Right basilar atelectasis. 2. Stable cardiomegaly without overt failure. D/ / Efrem Augustin MD / Efrem Augustin MD Interpreting Provider: Efrem Augustin MD Head CT 04/25/18 14:25 IMPRESSION: No acute intracranial abnormality. D/ / Brittany Sanders MD / Brittany Sanders MD Interpreting Provider: Brittany Sanders MD 1600 hrs.: Patient still appears confused his labs look good can add on a urine and then admit. No family or friends are here to accompany him to determine if this is his baseline or not. 1840 hrs.: Family finally came and saw the patient's this is not his baseline they state that he was agitated this morning and confused yesterday seemed to be okay. Soret bringing him in altered mental status uncertain etiology acute. They are in agreement this plan. - Lab Data Result diagrams: 04/25/18 14:23 04/25/18 14:23 Lab Results 04/25/18 04/25/18 04/25/18 Range/Units 14:23 14:23 17:03 WBC 10.4 (4.3-11.1) K/mcL RBC 4.15 L (4.19-5.50) M/mcL Hgb 12.7 L (12.9-16.9) g/dL Hct 39.5 (37.5-50.1) % MCV 95.2 (83.0-100.0) fL MCH 30.6 (28.0-33.3) pg MCHC 32.2 (31.6-35.5) g/dL RDW 14.9 H (11.5-14.5) % Plt Count 188 (140-400) K/mcL MPV 10.8 (9.4-12.4) fL Immature Gran % 0.3 (0-4) % Seg Neutrophils % 81.1 % Lymphocytes % 8.9 % Monocytes % 8.3 % Eosinophils % 1.1 % Basophils % 0.3 % Neutrophils # 8.4 (1.6-8.9) K/mcL Lymphocytes # 0.9 (0.6-4.6) K/mcL Monocytes # 0.9 (0.0-1.3) K/mcL Eosinophils # 0.1 (0.0-0.6) K/mcL Basophils # 0.0 (0.0-0.2) K/mcL Sodium 141 (136-145) mEq/L Potassium 3.9 (3.5-5.1) mEq/L Chloride 106 (98-107) mEq/L Carbon Dioxide 27 (23-29) mEq/L BUN 21 (8-23) mg/dL Creatinine 1.08 (0.70-1.30) mg/dL Est GFR ( Amer) > 60 (> 60) Est GFR (Non-Af Amer) > 60 (> 60) BUN/Creatinine Ratio 19 (6-26) Glucose 105 (70-105) mg/dL Calculated Osmolality 295 (280-300) Calcium 9.2 (8.6-10.3) mg/dL Troponin I < 0.03 (< 0.04) ng/mL TSH 0.811 (0.340-5.600) mcIU/mL Urine Color Yellow (Yellow) Urine Clarity Clear (Clear) Urine pH 5.5 (5.0-8.0) pH Units Ur Specific [place] 1.018 (1.010-1.025) Urine Protein 100 H (Neg-Trace) mg/dL Urine Glucose (UA) Normal (Normal) mg/dL Urine Ketones Negative (Negative) mg/dL Urine Blood Negative (Negative) Urine Nitrite Negative (Negative) Urine Bilirubin Negative (Negative) Urine Urobilinogen Normal (Normal) mg/dL Ur Leukocyte Esterase Negative (Negative) Urine Microscopic RBC 0-3 (0-3) per hpf Urine Microscopic WBC 0-3 (0-3) per hpf Ur Squamous Epith Cells Moderate H (None-Few) per lpf Urine Bacteria None Seen (None-Few) per hpf Hyaline Casts None Seen (None-Few) per lpf Ur Culture Indicated? NO (NO) Urine Opiates Screen (Mubitt=061) ng/mL Ur Barbiturates Screen (Kixqom=146) ng/mL Ur Phencyclidine Scrn (Cutoff=25) ng/mL Ur Amphetamines Screen (Ibcape=7098) ng/mL U Benzodiazepines Scrn (Oqfiut=438) ng/mL Urine Cocaine Screen (Cutoff= 300) ng/mL U Marijuana (THC) Screen (Cutoff = 50) ng/mL Ur Drug Screen Interp 04/25/18 Range/Units 17:03 WBC (4.3-11.1) K/mcL RBC (4.19-5.50) M/mcL Hgb (12.9-16.9) g/dL Hct (37.5-50.1) % MCV (83.0-100.0) fL MCH (28.0-33.3) pg MCHC (31.6-35.5) g/dL RDW (11.5-14.5) % Plt Count (140-400) K/mcL MPV (9.4-12.4) fL Immature Gran % (0-4) % Seg Neutrophils % % Lymphocytes % % Monocytes % % Eosinophils % % Basophils % % Neutrophils # (1.6-8.9) K/mcL Lymphocytes # (0.6-4.6) K/mcL Monocytes # (0.0-1.3) K/mcL Eosinophils # (0.0-0.6) K/mcL Basophils # (0.0-0.2) K/mcL Sodium (136-145) mEq/L Potassium (3.5-5.1) mEq/L Chloride (98-107) mEq/L Carbon Dioxide (23-29) mEq/L BUN (8-23) mg/dL Creatinine (0.70-1.30) mg/dL Est GFR ( Amer) (> 60) Est GFR (Non-Af Amer) (> 60) BUN/Creatinine Ratio (6-26) Glucose (70-105) mg/dL Calculated Osmolality (280-300) Calcium (8.6-10.3) mg/dL Troponin I (< 0.04) ng/mL TSH (0.340-5.600) mcIU/mL Urine Color (Yellow) Urine Clarity (Clear) Urine pH (5.0-8.0) pH Units Ur Specific [place] (1.010-1.025) Urine Protein (Neg-Trace) mg/dL Urine Glucose (UA) (Normal) mg/dL Urine Ketones (Negative) mg/dL Urine Blood (Negative) Urine Nitrite (Negative) Urine Bilirubin (Negative) Urine Urobilinogen (Normal) mg/dL Ur Leukocyte Esterase (Negative) Urine Microscopic RBC (0-3) per hpf Urine Microscopic WBC (0-3) per hpf Ur Squamous Epith Cells (None-Few) per lpf Urine Bacteria (None-Few) per hpf Hyaline Casts (None-Few) per lpf Ur Culture Indicated? (NO) Urine Opiates Screen Negative (Lhezrq=646) ng/mL Ur Barbiturates Screen Negative (Mfzfcn=885) ng/mL Ur Phencyclidine Scrn Negative (Cutoff=25) ng/mL Ur Amphetamines Screen Negative (Teznff=6243) ng/mL U Benzodiazepines Scrn Negative (Gkzxsi=120) ng/mL Urine Cocaine Screen Negative (Cutoff= 300) ng/mL U Marijuana (THC) Screen Negative (Cutoff = 50) ng/mL Ur Drug Screen Interp See Below Attestation Statement - Attestation Attestation: This documentation is done with the assistance of Draggerry dictation. Despite efforts made to ensure accuracy, there may be inaccuracies in cargo and container inspector or spelling and typographical errors. I examined this patient and my medical decision-making was reviewed with the Resident Physician. I agree with the documented findings, disposition and treatment plan as described except to the extent set forth below. Patient seen and evaluated by Dr. Hendrickson and myself, I agree with her evaluation management plan, supervise care the patient's stay. Patient presents today with some confu rkystyna this morning his blood sugar was high last night he took his insulin it was high again this morning he took insulin then 2 but may be his blood sugar dropped too quickly now with up in the 90s. He did eat before paramedics got there. Renagel workup on him and then reassess. He is in agreement with this plan. He is alert person place and time GCS is 14.
--- NOTE | 2018-04-25 14:34 | Emergency Department Note ---
Disposition Clinical Impression: Confusion Disposition: Admitted As Inpatient Condition: Fair Referrals: Teena Jimenez MD [Primary Care Provider] - Forms: ED Satisfaction Letter General Adult HPI - General Stated complaint: confusion Time Seen by Provider: 04/25/18 14:14 Source: patient, EMS Mode of arrival: EMS Limitations: no limitations Nursing Notes Reviewed: Yes Vital Signs Reviewed: Yes - History of Present Illness HPI Narrative: Patient is a 67-year-old male with past medical history including type 2 diabetes mellitus on insulin, hypertension, congestive heart failure with pacemaker, coronary artery disease, chronic kidney disease, presenting via EMS with confusion. Patient states he took 32 units of NovoLog 15 units at [facility] yesterday evening as his blood glucose was 264. He states when he woke up this morning he measured his glucose is 195. He states he did not eat anything. However per EMS, family states the patient appeared to be confused and drowsy. No slurred speech, facial droop, weakness or paresthesias were noted. EMS was called and on arrival his blood glucose was 95. He since states he did eat something right before the EMS came. He did not take any insulin this morning. When patient arrived here, the patient's blood glucose was 105 and he is more alert. Patient states he has been fighting a cold however he has not had any re cent antibiotics or steroids. Patient denies any abdominal pain, nausea, vomiting, weakness, paresthesias, vision changes, chest pain, shortness of breath. - Related Data Home Medications Medication Instructions Recorded Confirmed Allopurinol [Zyloprim 100 MG] 100 mg PO DAILY 04/02/15 03/14/18 Carvedilol [Coreg] 25 mg PO BID 04/02/15 03/14/18 Citalopram [CeleXA] 20 mg PO DAILY 04/02/15 03/14/18 Furosemide [Lasix] 60 mg PO BID 04/02/15 03/14/18 Insulin ASPART [NovoLOG] 32 unit SQ BID 04/02/15 03/14/18 Montelukast [Singulair] 10 mg PO DAILY 04/02/15 03/14/18 Potassium Chloride [K-Tab ER] 20 meq PO DAILY 04/02/15 03/14/18 Ranitidine HCl [Zantac] 150 mg PO BID 04/02/15 03/14/18 Simvastatin [Zocor] 20 mg PO HS 04/02/15 03/14/18 Hydralazine HCl 100 mg PO BID 04/06/17 03/14/18 Isosorbide MONOnitrate (24 HR) 60 mg PO DAILY 04/06/17 03/14/18 [Imdur] Nitroglycerin [Nitrostat] 0.4 mg SL Q5M PRN 04/06/17 03/14/18 hydrOXYzine HCl [Hydroxyzine HCl] 25 mg PO BID 06/01/17 03/14/18 Dulaglutide [Trulicity] 0.75 mg PO QWEEK 03/14/18 03/14/18 Previous Rx's Medication Instructions Recorded Aspirin Enteric Coated [Aspirin EC] 81 mg PO DAILY #30 tab 04/09/17 Albuterol Sulfate [Albuterol 2 puff IH [id number] PRN #1 inhaler 06/02/17 Inhaler] Lisinopril [Zestril] 5 mg PO DAILY 30 Days #30 tablet 03/15/18 Allergies Allergy/AdvReac Type Severity Reaction Status Date / Time No Known Allergies Allergy Verified 03/13/18 22:05 All systems ED: reviewed and negative except as stated. Review of Systems: As Per HPI Constitutional: Denies: fever, chills Eyes: Denies: vision change Cardiovascular: Denies: chest pain, palpitations Respiratory: Denies: cough, dyspnea Gastrointestinal: Denies: abdominal pain, nausea, vomiting, diarrhea Genitourinary: Denies: dysuria Neurological: Reports: confusion. Denies: headache, weakness, paresthesias Past Medical History - Past Medical History Medical history: Reports: cardiomyopathy, CHF, COPD, coronary artery disease, diabetes, hypertension, other Surgical history: Reports: angioplasty/stent, coronary bypass (CABG), knee replacement, pacemaker/AICD Psychiatric history: Reports: depression - Social History Smoking Status: Never smoker Smokeless Tobacco Status: No Alcohol use: Reports: none Drug use: Reports: none Physical Exam - General Limitations: no limitations General appearance: alert, in no apparent distress - Head Head exam: atraumatic, normocephalic, normal inspection - Eye Eye exam: Present: normal appearance, PERRL, EOMI - ENT ENT exam: normal exam, normal oropharynx, mucous membranes moist - Neck Neck exam: Present: normal inspection, trachea midline. Absent: tenderness - Chest Chest inspection: Present: normal inspection, symmetric chest wall rise - Respiratory Respiratory exam: Present: normal lung sounds bilaterally. Absent: respiratory distress, wheezes - Cardiovascular Cardiovascular exam: Present: regular rate, normal rhythm, normal heart sounds - Abdominal Exam Abdominal exam: Present: soft, Non-Tender. Absent: tenderness, distention, guarding, rebound, rigidity - Extremities Exam Extremities exam: Present: normal inspection, full ROM, normal capillary refill. Absent: tenderness, pedal edema - Neurological Exam Neurological exam: Present: alert, CN II-XII intact, other (Alert to person and place but not time). Absent: motor sensory deficit - Expanded Neurological Exam Speech: Present: fluid speech Cerebellar function: finger to nose: Normal Motor strength - LUE: 5/5 Motor strength - RUE: 5/5 Motor strength - LLE: 5/5 Motor strength - RLE: 5/5 Upper motor neuron exam: michela neglect: Absent bilaterally Sensory exam upper extremity: light touch: Normal Sensory exam lower extremity: light touch: Normal - Psychiatric Psychiatric exam: Present: normal affect, normal mood - Skin Skin exam: Present: warm, dry, intact, normal color Course Vital Signs Temperature 97.5 F L 04/25/18 14:18 Pulse Rate 63 04/25/18 14:18 Respiratory Rate 18 04/25/18 14:18 Blood Pressure 190/88 04/25/18 14:18 O2 Sat by Pulse Oximetry 94 04/25/18 14:18 Temperature 97.5 F L 04/25/18 14:18 Pulse Rate 60 04/25/18 15:55 Respiratory Rate 20 04/25/18 15:55 Blood Pressure 165/69 04/25/18 15:55 O2 Sat by Pulse Oximetry 94 04/25/18 14:18 Oxygen Delivery Oxygen Delivery Room Air Medical Decision Making - MDM Narrative Medical decision making narrative: Suspect the patient was hypoglycemic causing confusion and drowsiness this morning. He took 32 units of NovoLog and 15 units of [place] yesterday evening. Blood glucose here is 105. Will have the patient eat. We will also obtain CBC, BMP, troponin, EKG, chest x-ray to further evaluate a metabolic cause or acute coronary syndrome. We will also obtain CT head without contrast secondary to the confusion. He has a nonfocal neurologic examination. 16:00 Labs and imaging reviewed. CT head without acute intracranial abnormality. No electrolyte abnormalities. No leukocytosis. Chest x-ray with right basilar atelectasis. We will obtain urinalysis to evaluate for urinary tract infection. Upon reevaluation of the patient, the patient states he does not really know what is going on. He does not know if he is confused. He is not alert to time however he is alert to person and place. He still has a nonfocal neurologic examination. He states he feels weird complains of some shortness of breath however he is not hypoxic. I discussed with our social insurance analyst,Zara, will call the patient's family to get a better history and determine what the patient's baseline is. Patient will be admitted for confusion. 16:45 addiction social worker attempted to call family and she was unable to get a hold of anyone. She took a look at old medical records and a renal case manager evaluated the patient in February. He is independent and able to drive alone. It appears patient is not at his baseline at this time. Urinalysis is still pending at this time. With this returns we will call hospitalist for admission. 17:30 Patient's urine without evidence of infection. Patient has remained medically stable. Family is not bedside and states "the patient has been talking out of his head this morning." They state this is new confusion since this morning. They state he was forgetting what he was doing and would stare at them when they would be talking to him. No odd movements. New medication of lisinopril otherwise no other new medications. They state he was admitted for pneumonia last month. No other new illnesses. No fevers at home. Patient still does not appear to be at his baseline and is still confused appearing. We will admit the patient for altered mental status of unclear etiology. He hospitalist has been consulted. 17:40 Discussed with hospitalist, Dr. Minaya who accepts admission. We will add TSH and urine drug screen. No further recommendations at this time. Patient is otherwise remaining medically stable however he is still confused. - Medical Records Medical records reviewed: Yes I reviewed the patient's medical records. - Lab Data Lab results reviewed: Yes I reviewed the patient's lab results. Result diagrams: 04/25/18 14:23 04/25/18 14:23 Lab Results 04/25/18 04/25/18 04/25/18 Range/Units 14:23 14:23 17:03 WBC 10.4 (4.3-11.1) K/mcL RBC 4.15 L (4.19-5.50) M/mcL Hgb 12.7 L (12.9-16.9) g/dL Hct 39.5 (37.5-50.1) % MCV 95.2 (83.0-100.0) fL MCH 30.6 (28.0-33.3) pg MCHC 32.2 (31.6-35.5) g/dL RDW 14.9 H (11.5-14.5) % Plt Count 188 (140-400) K/mcL MPV 10.8 (9.4-12.4) fL Immature Gran % 0.3 (0-4) % Seg Neutrophils % 81.1 % Lymphocytes % 8.9 % Monocytes % 8.3 % Eosinophils % 1.1 % Basophils % 0.3 % Neutrophils # 8.4 (1.6-8.9) K/mcL Lymphocytes # 0.9 (0.6-4.6) K/mcL Monocytes # 0.9 (0.0-1.3) K/mcL Eosinophils # 0.1 (0.0-0.6) K/mcL Basophils # 0.0 (0.0-0.2) K/mcL Sodium 141 (136-145) mEq/L Potassium 3.9 (3.5-5.1) mEq/L Chloride 106 (98-107) mEq/L Carbon Dioxide 27 (23-29) mEq/L BUN 21 (8-23) mg/dL Creatinine 1.08 (0.70-1.30) mg/dL Est GFR ( Amer) > 60 (> 60) Est GFR (Non-Af Amer) > 60 (> 60) BUN/Creatinine Ratio 19 (6-26) Glucose 105 (70-105) mg/dL Calculated Osmolality 295 (280-300) Calcium 9.2 (8.6-10.3) mg/dL Troponin I < 0.03 (< 0.04) ng/mL Urine Color Yellow (Yellow) Urine Clarity Clear (Clear) Urine pH 5.5 (5.0-8.0) pH Units Ur Specific [place] 1.018 (1.010-1.025) Urine Protein 100 H (Neg-Trace) mg/dL Urine Glucose (UA) Normal (Normal) mg/dL Urine Ketones Negative (Negative) mg/dL Urine Blood Negative (Negative) Urine Nitrite Negative (Negative) Urine Bilirubin Negative (Negative) Urine Urobilinogen Normal (Normal) mg/dL Ur Leukocyte Esterase Negative (Negative) Urine Microscopic RBC 0-3 (0-3) per hpf Urine Microscopic WBC 0-3 (0-3) per hpf Ur Squamous Epith Cells Moderate H (None-Few) per lpf Urine Bacteria None Seen (None-Few) per hpf Hyaline Casts None Seen (None-Few) per lpf Ur Culture Indicated? NO (NO) - Radiology Data Radiology results reviewed: Yes I reviewed the patient's radiology results. Chest X-Ray 04/25/18 14:25 IMPRESSION: 1. Right basilar atelectasis. 2. Stable cardiomegaly without overt failure. D/ / Efrem Augustin MD / Efrem Augustin MD Interpreting Provider: Efrem Augustin MD Head CT 04/25/18 14:25 IMPRESSION: No acute intracranial abnormality. D/ / Brittany Sanders MD / Brittany Sanders MD Interpreting Provider: Brittany Sanders MD - EKG Data EKG #1 EKG attestation: Yes I reviewed and interpreted this EKG. EKG results narrative: EKG obtained today at 1419 shows ventricular paced rhythm with heart rate 67. MA interval 325, QRS duration 182. QTC is 545. No ST elevation or depression. Compared to old EKG on 03/13/2018 which appears unchanged.
[2018-04-25 14:41] LABS: Basophils % 0.3 %; Eosinophils # 0.1 K/mcL (0.0-0.6); Eosinophils % 1.1 %; Hematocrit 39.5 % (37.5-50.1); Hemoglobin 12.7 g/dL (12.9-16.9); Immature Granulocytes % 0.3 % (0-4); Lymphocytes # 0.9 K/mcL (0.6-4.6); Lymphocytes % 8.9 %; Mean Corpuscular HGB Conc 32.2 g/dL (31.6-35.5); Mean Corpuscular Hemoglobin 30.6 pg (28.0-33.3); Mean Corpuscular Volume 95.2 fL (83.0-100.0); Mean Platelet Volume 10.8 fL (9.4-12.4); Monocytes # 0.9 K/mcL (0.0-1.3); Monocytes % 8.3 %; Neutrophils # 8.4 K/mcL (1.6-8.9); Platelet Count 188 K/mcL (140-400); Red Blood Count 4.15 M/mcL (4.19-5.50); Red Cell Distribution Width 14.9 % (11.5-14.5); Segmented Neutrophils % 81.1 %
[2018-04-25 15:01] LABS: BUN/Creatinine Ratio 19 (6-26); Blood Urea Nitrogen 21 mg/dL (8-23); Calcium 9.2 mg/dL (8.6-10.3); Carbon Dioxide 27 mEq/L (23-29); Chloride 106 mEq/L (98-107); Glucose 105 mg/dL (70-105); Osmolality,Calculated 295 (280-300); Potassium 3.9 mEq/L (3.5-5.1); Sodium 141 mEq/L (136-145); Troponin I < 0.03 ng/mL (< 0.04); eGFR For Non-African Americans > 60 (> 60)
[2018-04-25 17:19] LABS: Bilirubin,Urine Negative (Negative); Blood,Urine Negative (Negative); Clarity,Urine Clear (Clear); Color,Urine Yellow (Yellow); Glucose,Urine (UA) Normal (Normal); Ketones,Urine Negative (Negative); Leukocyte Esterase,Urine Negative (Negative); Nitrite,Urine Negative (Negative); PH,Urine 5.5 pH Units (5.0-8.0); Protein,Urine 100 mg/dL (Neg-Trace); Specific Gravity,Urine 1.018 (1.010-1.025); Urobilinogen,Urine Normal (Normal)
[2018-04-25 17:23] LABS: Bacteria,Urine None Seen per hpf (None-Few); Hyaline Casts,Urine None Seen per lpf (None-Few); RBC,Urine 0-3 per hpf (0-3); Squamous Epithelial Cell,Urine Moderate per lpf (None-Few); WBC,Urine 0-3 per hpf (0-3)
--- NOTE | 2018-04-25 18:03 | Internal Med History&Physical ---
Date of Encounter: 04/25/18 Time of Encounter: 17:56 Internal Medicine - H&P: HPI Chief complaint: Confusion Admitted From: Emergency Dept Plans for Post Hospital Care: Home History of present illness: Mr. Suárez is a 67 year old male 67 year old male with significant past medical history of insulin-dependent diabetes, coronary artery disease with multiple stents and CABG completed in 2010, hypertension, COPD and hy perlipidemia , chronic kidney disease, admitted from the emergency department with altered mental status since the morning. Family stated to the ED the patient appears to be confused and "talking out of his head". There was no family member around I saw the patient. He did not seem very confused to me. He was alert and oriented 2. He was able to tell me where he is at his name. He could not tell me the date but he could tell me the year. He was able to tell me what he ate for breakfast and dinner yesterday. He did not have breakfast today. He is able to tell me that his glucose was 152 this morning at all. He was also able to tell me that he went to bed at 2 AM. When I asked him why he is in the ED he tell me that "they said I am confused". In the ED glucose 95 initially. Labs are unremarkable. Chest x-ray is clear. No signs of UTI. Hemodynamically stable but BP mildly elevated and initially was 190/88. Patient has been dealing with cold symptoms for a few days. Denies fevers, chills, headache, blurry vision, nausea, vomiting, chest pain, shortness, abdominal pain, diarrhea, constipation, urinary symptoms, or neurological symptoms. At baseline patient tells me that he is wobbly and falls frequently. Past Med Surg Social Fam HX - Past Medical History Medical history: cardiomyopathy, CHF, COPD, coronary artery disease, diabetes, hypertension, other Psychiatric history: depression - Past Surgical History Surgical History: angioplasty/stent, coronary bypass (CABG), knee replacement, pacemaker/AICD Additional surgical history: Bilateral knee replacement. - Social History Smoking Status: Never smoker Smokeless Tobacco Status: No Alcohol use: none Drug use: none - Family History Mother Adopted: No Living Status: Hx Family Cardiac Disorders: No Hx Family Respiratory Disorders: No Hx Family Cancer: No Hx Family GI Disorders: No Hx Family Endocrine Disorder: No Hx Family Neuromuscular Disorders: No Hx Family Neurologic Disorders: Yes (dementia) Hx Family HEENT Disorders: No Hx Family Autoimmune Disorders: No Father Living Status: Hx Family Cardiac Disorders: Yes Hx Family Respiratory Disorders: No Hx Family Cancer: No Hx Family GI Disorders: No Hx Family Endocrine Disorder: Yes (DM) Hx Family Neuromuscular Disorders: No Hx Family Neurologic Disorders: No Hx Family HEENT Disorders: No Hx Family Autoimmune Disorders: No Internal Medicine - H&P: Meds Allopurinol [Zyloprim 100 MG] 100 mg PO DAILY 04/02/15 [History] Carvedilol [Coreg] 25 mg PO BID 04/02/15 [History] Citalopram [CeleXA] 20 mg PO DAILY 04/02/15 [History] Furosemide [Lasix] 60 mg PO BID 04/02/15 [History] Insulin ASPART [NovoLOG] 32 unit SQ BID 04/02/15 [History] Montelukast [Singulair] 10 mg PO DAILY 04/02/15 [History] Potassium Chloride [K-Tab ER] 20 meq PO DAILY 04/02/15 [History] Ranitidine HCl [Zantac] 150 mg PO BID 04/02/15 [History] Simvastatin [Zocor] 20 mg PO HS 04/02/15 [History] Hydralazine HCl 100 mg PO BID 04/06/17 [History] Isosorbide MONOnitrate (24 HR) [Imdur] 60 mg PO DAILY 04/06/17 [History] Nitroglycerin [Nitrostat] 0.4 mg SL Q5M PRN 04/06/17 [History] Aspirin Enteric Coated [Aspirin EC] 81 mg PO DAILY #30 tab 04/09/17 [Rx] hydrOXYzine HCl [Hydroxyzine HCl] 25 mg PO BID 06/01/17 [History] Albuterol Sulfate [Albuterol Inhaler] 2 puff IH [id number] PRN #1 inhaler 06/02/17 [Rx] Dulaglutide [Trulicity] 0.75 mg PO QWEEK 03/14/18 [History] Lisinopril [Zestril] 5 mg PO DAILY 30 Days #30 tablet 03/15/18 [Rx] Allergy/AdvReac Type Severity Reaction Status Date / Time No Known Allergies Allergy Verified 03/13/18 22:05 All Systems PM: A 10-system review of systems was performed and is negative for pertinent findings except as documented above in the HPI. Review of systems: All systems reviewed are negative except for as mentioned above - Constitutional Vitals: Temp Pulse Resp BP Pulse Ox 97.5 F L 60 20 165/69 94 04/25/18 14:18 04/25/18 15:55 04/25/18 15:55 04/25/18 15:55 04/25/18 14:18 Exam: GEN: NAD HEENT: AT, NC, No cyanosis, oral mucosa is moist, No JVD Lymphatics: No lymphadenoapthy Eyes: Extrocular muscles intact, anicteric CVS:RRR. S1, S2, No m/r/g RESP: CTAB ABD: Soft, NT, ND, +BS EXT: 1+ edema, No rashes, 2+ DP NEURO: A/Ox2. Nonfocal, CN II-XII intact, No focal motor or sensory deficits Psych: Cooperative, Not anxious or depressed Internal Med - H&P Results - Labs CBC & Chem 7: 04/25/18 14:23 04/25/18 14:23 Labs: Short CBC 04/25/18 Range/Units 14:23 WBC 10.4 (4.3-11.1) K/mcL Hgb 12.7 L (12.9-16.9) g/dL Hct 39.5 (37.5-50.1) % Plt Count 188 (140-400) K/mcL Neutrophils # 8.4 (1.6-8.9) K/mcL BMP 04/25/18 14:23 Sodium 141 Potassium 3.9 Chloride 106 Carbon Dioxide 27 BUN 21 Creatinine 1.08 Glucose 105 Calcium 9.2 Cardiac Enzymes 04/25/18 Range/Units 14:23 Troponin I < 0.03 (< 0.04) ng/mL Urine 04/25/18 Range/Units 17:03 Urine Color Yellow (Yellow) Urine Clarity Clear (Clear) Urine pH 5.5 (5.0-8.0) pH Units Ur Specific [place] 1.018 (1.010-1.025) Urine Protein 100 H (Neg-Trace) mg/dL Urine Glucose (UA) Normal (Normal) mg/dL - Impressions ITS Impressions Chest X-Ray 04/25/18 14:25 IMPRESSION: 1. Right basilar atelectasis. 2. Stable cardiomegaly without overt failure. D/ / Efrem Augustin MD / Efrem Augustin MD Interpreting Provider: Efrem Augustin MD Head CT 04/25/18 14:25 IMPRESSION: No acute intracranial abnormality. D/ / Brittany Sanders MD / Brittany Sanders MD Interpreting Provider: Brittany Sanders MD - Assessment and plan (1) Encephalopathy Current Visit: Yes Status: Acute Assessment and plan: No clear and etiology so far. He doesn't seem to be confused to me. Not sure what his baseline is. He is alert/oriented x2. He answers questions appropria tely for the most part and is able to tell me what he had for breakfast yesterday and for dinner. He is able to tell me what time he went to be last night. He is able to tell me what his sugar was this morning (152). He is not very insightful in terms of what meds he takes. Patient is not hypoxic. Not hypoglycemic. Not aware of any sedating medications but based on his last discharge summary in February, the patient takes hydroxyzine which can cause transient drowsiness and some [employer] depression. Also takes Celexa which can have similar effects. He does not have any focal neurological deficit. No slurred speech whatsoever. Does not sound like there was any seizure activities. Laboratory workup is unremarkable. He is hemodynamically stable other than mildly elevated BP. ??hypertensive encephalopathy??. We will get TSH, vitamin B12, folate levels, UDS. We will monitor the patient and see how he is doing tomorrow morning. If continues to be like this, we will get an MRI of brain and possibly consult with neurology. (2) Coronary artery disease Current Visit: No Status: Chronic Assessment and plan: Continue home meds Qualifiers: Coronary Disease-Associated Artery/Lesion type: [place] artery [place] vs. transplanted heart: [place] heart Associated angina: without angina Qualified Code(s): I25.10 - Atherosclerotic heart disease of [place] coronary artery without angina pectoris (3) Diabetes mellitus, type II, insulin dependent Current Visit: No Status: Chronic Assessment and plan: We will place on sliding scale insulin for now and Accu-Cheks. (4) CKD (chronic kidney disease) stage 3, GFR 30-59 ml/min Current Visit: No Status: Chronic Assessment and plan: Stable around baseline. We will monitor (5) Hypertension Current Visit: No Status: Chronic Assessment and plan: Continue home meds. Will add hydralazine IV PRN for now for elevated BP. BP down to 160s systolic while I was evaluating the patient. Qualifiers: Hypertension type: essential hypertension Qualified Code(s): I10 - Essential (primary) hypertension (6) DVT prophylaxis Current Visit: No Status: Acute Assessment and plan: Heparin subcutaneous - Time Spent With Patient Total time spent is greater than 50% in coordination of care (as documented) at patient's floor/unit and/or counseling patient:
[2018-04-25] MEDS ORDERED: D5% in Water 1,000 ML IVC PRN (18:06)
[2018-04-25] MEDS ORDERED: Dextrose Gel 15 GM/37.5 ML TUBE PO PRN ×2 (18:06)
[2018-04-25] MEDS ORDERED: *HR* Dextrose 50 % in Water (Syg) 50 ML SYRINGE IVP PRN (18:06)
[2018-04-25] MEDS ORDERED: Acetaminophen 325 MG TABLET PO PRN (18:09)
[2018-04-25] MEDS ORDERED: Naloxone 0.4 MG/ML INJ IVP PRN (18:09)
[2018-04-25 18:14] LABS: Thyroid Stimulating Hormone 0.811 mcIU/mL (0.340-5.600)
[2018-04-25 18:29] LABS: Amphetamine Screen,Urine Negative ng/mL (Cutoff=1000); Barbiturate Screen,Urine Negative ng/mL (Cutoff=200); Benzodiazepines Screen,Urine Negative ng/mL (Cutoff=200); Cannabinoid Screen,Urine Negative ng/mL (Cutoff = 50); Cocaine Screen,Urine Negative ng/mL (Cutoff= 300); Opiate Screen,Urine Negative ng/mL (Cutoff=300); Phencyclidine Screen,Urine Negative ng/mL (Cutoff=25)
[2018-04-25] MEDS ORDERED: Lactulose Oral Soln 20 GM/30 ML UDC PO ONE (20:17)
[2018-04-25] MEDS ORDERED: Insulin LISPRO 300 UNITS/3 ML VIAL SQ SCH ×2 (21:00)
[2018-04-25] MEDS: Furosemide 20 MG TABLET PO SCH (22:07)
[2018-04-25] MEDS: hydrALAZINE 25 MG TABLET PO SCH (22:07)
[2018-04-25] MEDS: *HR* Heparin 5,000 UNIT/ML VIAL SQ SCH (22:08)
[2018-04-25] MEDS ORDERED: Menthol 9.1 MG LOZENGE PO PRN (22:43)
[2018-04-26] MEDS: *HR* Heparin 5,000 UNIT/ML VIAL SQ SCH (05:39)
[2018-04-26 05:53] LABS: Alanine Aminotransferase 18 Units/L (7-52); Albumin 3.5 g/dL (3.5-5.7); Albumin/Globulin Ratio 1.3 (1.1-2.2); Alkaline Phosphatase 86 Units/L (34-104); Aspartate Amino Transferase 18 Units/L (13-39); BUN/Creatinine Ratio 20 (6-26); Bilirubin,Total 0.9 mg/dL (0.3-1.0); Blood Urea Nitrogen 22 mg/dL (8-23); Carbon Dioxide 27 mEq/L (23-29); Chloride 108 mEq/L (98-107); Globulin 2.8 g/dL (2.4-3.5); Glucose 141 mg/dL (70-105); Magnesium 2.1 mg/dL (1.6-2.6); Osmolality,Calculated 298 (280-300); Potassium 3.7 mEq/L (3.5-5.1); Sodium 141 mEq/L (136-145); Total Protein 6.3 g/dL (6.4-8.9); eGFR For Non-African Americans > 60 (> 60)
[2018-04-26 06:48] LABS: Basophils % 0.6 %; Eosinophils # 0.1 K/mcL (0.0-0.6); Eosinophils % 2.1 %; Hematocrit 33.8 % (37.5-50.1); Immature Granulocytes % 0.3 % (0-4); Lymphocytes % 15.4 %; Mean Corpuscular HGB Conc 32.5 g/dL (31.6-35.5); Mean Corpuscular Hemoglobin 30.6 pg (28.0-33.3); Mean Corpuscular Volume 94.2 fL (83.0-100.0); Mean Platelet Volume 11.1 fL (9.4-12.4); Monocytes # 0.9 K/mcL (0.0-1.3); Monocytes % 13.7 %; Neutrophils # 4.5 K/mcL (1.6-8.9); Platelet Count 165 K/mcL (140-400); Red Blood Count 3.59 M/mcL (4.19-5.50); Segmented Neutrophils % 67.9 %
[2018-04-26] MEDS ORDERED: Famotidine 20 MG TABLET PO SCH (07:30)
[2018-04-26] MEDS ORDERED: Insulin LISPRO 300 UNITS/3 ML VIAL SQ SCH (08:00)
[2018-04-26] MEDS: Furosemide 20 MG TABLET PO SCH (08:26)
[2018-04-26] MEDS: hydrALAZINE 25 MG TABLET PO SCH (08:26)
[2018-04-26] MEDS: Insulin LISPRO 300 UNITS/3 ML VIAL SQ SCH ×2 (08:28→12:12)
--- NOTE | 2018-04-26 08:30 | Internal Med Progress Note ---
Hospitalist Progress Note - Encounter Date of Encounter: 04/26/18 Time of Encounter: 08:30 - Exam Vitals: Temp Pulse Resp BP Pulse Ox 98.0 F 59 18 170/85 93 04/26/18 07:33 04/26/18 07:33 04/26/18 07:33 04/26/18 07:33 04/26/18 07:33 - Assessment and Plan (1) Coronary artery disease Current Visit: No Status: Chronic (2) Diabetes mellitus, type II, insulin dependent Current Visit: No Status: Chronic (3) CKD (chronic kidney disease) stage 3, GFR 30-59 ml/min Current Visit: No Status: Chronic (4) DVT prophylaxis Current Visit: No Status: Acute (5) Hypertension Current Visit: No Status: Chronic (6) Encephalopathy Current Visit: Yes Status: Acute - Time Spent with Patient Total time spent is greater than 50% in coordination of care (as documented) at patient's floor/unit and/or counseling patient: Internal Medicine: Result - Labs CBC & Chem 7: 04/26/18 06:19 04/26/18 05:21 Labs: Short CBC 04/25/18 04/26/18 Range/Units 14:23 06:19 WBC 10.4 6.6 (4.3-11.1) K/mcL Hgb 12.7 L 11.0 L D (12.9-16.9) g/dL Hct 39.5 33.8 L (37.5-50.1) % Plt Count 188 165 (140-400) K/mcL Neutrophils # 8.4 4.5 (1.6-8.9) K/mcL BMP 04/25/18 04/26/18 14:23 05:21 Sodium 141 141 Potassium 3.9 3.7 Chloride 106 108 H Carbon Dioxide 27 27 BUN 21 22 Creatinine 1.08 1.10 Glucose 105 141 H Calcium 9.2 9.0 Cardiac Enzymes 04/25/18 Range/Units 14:23 Troponin I < 0.03 (< 0.04) ng/mL Liver Function 04/26/18 Range/Units 05:21 Total Bilirubin 0.9 (0.3-1.0) mg/dL AST 18 (13-39) Units/L ALT 18 (7-52) Units/L Alkaline Phosphatase 86 (34-104) Units/L Albumin 3.5 (3.5-5.7) g/dL Urine 04/25/18 Range/Units 17:03 Urine Color Yellow (Yellow) Urine Clarity Clear (Clear) Urine pH 5.5 (5.0-8.0) pH Units Ur Specific [place] 1.018 (1.010-1.025) Urine Protein 100 H (Neg-Trace) mg/dL Urine Glucose (UA) Normal (Normal) mg/dL - Impressions Impressions Chest X-Ray 04/25/18 14:25 IMPRESSION: 1. Right basilar atelectasis. 2. Stable cardiomegaly without overt failure. D/ / Efrem Augustin MD / Efrem Augustin MD Interpreting Provider: Efrem Augustin MD Head CT 04/25/18 14:25 IMPRESSION: No acute intracranial abnormality. D/ / Brittany Sanders MD / Brittany Sanders MD Interpreting Provider: Brittany Sanders MD Consult Discharge Plan - Plan Referrals: Teena Jimenez MD [Primary Care Provider] - (1) Coronary artery disease Qualifiers: Coronary Disease-Associated Artery/Lesion type: [place] artery [place] vs. transplanted heart: [place] heart Associated angina: without angina Qualified Code(s): I25.10 - Atherosclerotic heart disease of [place] coronary artery w ithout angina pectoris (5) Hypertension Qualifiers: Hypertension type: essential hypertension Qualified Code(s): I10 - Essential (primary) hypertension
[2018-04-26] MEDS ORDERED: Aspirin Enteric Coated 81 MG Tablet PO SCH (09:00)
[2018-04-26] MEDS ORDERED: Isosorbide MONOnitrate (24 HR) 60 MG TAB.ER.24H PO SCH (09:00)
--- NOTE | 2018-04-26 09:44 | Discharge Summary ---
<Daja Yuan N - Last Filed: 04/26/18 16:17> - NOTES TO OUTPATIENT PROVIDER Notes to Outpatient Provider: Patient was to be admitted to the hospital after presenting to the ED due to altered mental status, described by family as "talking out of his head". Laboratory workup was unrevealing for causes of acute mental status change, and patient did not appear to be altered on exam. Resolved overnight. Date of Encounter: 04/26/18 Time of Encounter: 09:44 - Discharge Diagnosis (1) Coronary artery disease Priority: Secondary Status: Chronic Qualifiers: Coronary Disease-Associated Artery/Lesion type: [place] artery [place] vs. transplanted heart: [place] heart Associated angina: without angina Qualified Code(s): I25.10 - Atherosclerotic heart disease of [place] coronary artery without angina pectoris (2) Diabetes mellitus, type II, insulin dependent Priority: Secondary Status: Chronic (3) CKD (chronic kidney disease) stage 3, GFR 30-59 ml/min Priority: Secondary Status: Chronic (4) Hypertension Priority: Secondary Status: Chronic Qualifiers: Hypertension type: essential hypertension Qualified Code(s): I10 - Essential (primary) hypertension (5) Encephalopathy Priority: Primary Status: Acute Hospital course: Mr. Suárez is a 67 year old male who was brought to the emergency room by EMS due to family concerns for confusion and sleepiness. Initial suspicion was for transient hypoglycemia due to poor oral intake this morning and administration of normal basal insulin the night before. Workup was negative for causes of acute mental status changes. Patient reported feeling improved with less confusion prior to hospital discharge. - Time Spent with Patient Total time spent providing and/or coordinating discharge services: - Discharge Medications Prescriptions: RX: Lactulose 20 gm PO DAILY #1 bottle RX: Lisinopril [Zestril] 10 mg PO DAILY #30 tablet Home Medications: RX: Allopurinol [Zyloprim 100 MG] 100 mg PO DAILY 04/02/15 [History] RX: Carvedilol [Coreg] 25 mg PO BID 04/02/15 [History] RX: Citalopram [CeleXA] 20 mg PO DAILY 04/02/15 [History] RX: Furosemide [Lasix] 60 mg PO BID 04/02/15 [History] RX: Insulin ASPART [NovoLOG] 32 unit SQ BID 04/02/15 [History] RX: Montelukast [Singulair] 10 mg PO DAILY 04/02/15 [History] RX: Potassium Chloride [K-Tab ER] 20 meq PO DAILY 04/02/15 [History] RX: Ranitidine HCl [Zantac] 150 mg PO BID 04/02/15 [History] RX: Simvastatin [Zocor] 20 mg PO HS 04/02/15 [History] RX: Hydralazine HCl 100 mg PO BID 04/06/17 [History] RX: Isosorbide MONOnitrate (24 HR) [Imdur] 60 mg PO DAILY 04/06/17 [History] RX: Nitroglycerin [Nitrostat] 0.4 mg SL Q5M PRN 04/06/17 [History] RX: Aspirin Enteric Coated [Aspirin EC] 81 mg PO DAILY #30 tab 04/09/17 [Rx] RX: hydrOXYzine HCl [Hydroxyzine HCl] 25 mg PO BID 06/01/17 [History] RX: Albuterol Sulfate [Albuterol Inhaler] 2 puff IH [id number] PRN #1 inhaler 06/02/17 [Rx] RX: Dulaglutide [Trulicity] 0.75 mg PO QWEEK 03/14/18 [History] RX: Lactulose 20 gm PO DAILY #1 bottle 04/26/18 [Rx] RX: Lisinopril [Zestril] 10 mg PO DAILY #30 tablet 04/26/18 [Rx] Allergies/Adverse Reactions: Allergy/AdvReac Type Severity Reaction Status Date / Time No Known Allergies Allergy Verified 03/13/18 22:05 Date of admission: 04/25/18 19:00 Primary care physician: Teena Jimenez Consults: 04/25/18 22:38 Consult to Home Health Attendant [CONS] Routine Reason for SW Consult: financial concern Discharging clinician: Daja Yuan Anticipated date of discharge: 04/26/18 - Constitutional Vitals: Temp Pulse Resp BP Pulse Ox 98.0 F 59 18 170/85 93 04/26/18 07:33 04/26/18 07:33 04/26/18 07:33 04/26/18 07:33 04/26/18 08:35 Exam: GENERAL: Well-developed and well-nourished adult male in no acute distress. HEENT: Atraumatic and normocephalic. CARDIOVASCULAR: Regular rate and rhythm. S1 and S2 present. No murmurs, gallops, or rubs appreciated. RESPIRATORY: Clear to auscultation bilaterally. Chest rises and falls symmetrically with respiration. No accessory muscle use noted. GASTROINTESTINAL: Abdomen is soft, nontender, nondistended. EXTREMITIES: No clubbing, cyanosis, or edema present. SKIN: Warm, dry, and intact. NEUROLOGIC: Alert and oriented x3. Patient is cooperative with exam and answers questions appropriately. No apparent focal deficits present. PSYCHIATRIC: Mood and affect appear appropriate. - Patient Status Disposition: Home, Self-Care Condition: Fair Overall status at discharge: patient is progressing back to baseline - Discharge Instructions Follow Up With: Teena Jimenez MD [Primary Care Provider] - 04/30/18 10:45 am Additional Instructions: Follow up with your PCP in 3-5 days. Continue home medications. Increase dose of lisinopril 10mg daily; a prescription has been sent to the pharmacy. Take lactulose 20g daily. Return to the ED if you develop fevers/chills, repeat confusion, dizziness, lightheadedness, or any new concerns. - Diet and Activity Activity: increase activity as tolerated <Alfredo Best - Last Filed: 04/26/18 21:44> Date of Encounter: 04/26/18 - Discharge Diagnosis (1) Coronary artery disease Status: Chronic Qualifiers: Coronary Disease-Associated Artery/Lesion type: [place] artery [place] vs. transplanted heart: [place] heart Associated angina: without angina Qualified Code(s): I25.10 - Atherosclerotic heart disease of [place] coronary artery without angina pectoris (2) Diabetes mellitus, type II, insulin dependent Status: Chronic (3) CKD (chronic kidney disease) stage 3, GFR 30-59 ml/min Status: Chronic (4) Hypertension Status: Chronic Qualifiers: Hypertension type: essential hypertension Qualified Code(s): I10 - Essential (primary) hypertension (5) Encephalopathy Status: Acute Hospital course: Mr. Suárez is a 67 year old male - Time Spent with Patient Total time spent providing and/or coordinating discharge services: Date of admission: 04/25/18 19:00 Primary care physician: Teena Jimenez Consults: 04/25/18 22:38 Consult to Home Health Attendant [CONS] Routine Reason for SW Consult: financial concern - Constitutional Vitals: Temp Pulse Resp BP Pulse Ox 99.0 F 60 18 166/74 92 04/26/18 11:37 04/26/18 11:37 04/26/18 11:37 04/26/18 11:37 04/26/18 11:37 - Attending Attestation I examined this patient and my medical decision-making was reviewed with the Resident Physician. I agree with the documented discharge as above. Admitted with AMS. Work up only revealed mildly elevated ammonia which corrected with one dose of lactulose 20 mg. Patient's liver panel was unremarkable. Ended up being discharged on lactulose 20 mg daily. Patient was back to baseline mental status and A/Ox3 on day of discharge. Patient barely exhibited any signs of confusion to begin with. GEN: NAD CVS: RRR. S1, S2, No m/r/g RESP: CTAB ABD: Soft, NT, ND, +BS EXT: No edema. 2+ DP. No rashes NEURO: Nonfocal
[2018-04-26 11:38] VITALS: BP 166/74
--- NOTE | 2018-04-26 14:08 | Electrocardiograph Report ---
[facility] [facility] Test Date: 2018-04-25 Pat Name: Trent Suárez Department: [id number] Room: 2A23 Gender: M [employer]iter: : 1950 Requested By: Adán Christie Order Number: [id number] Reading MD: Virgilio Palacio Measurements Intervals [place] Rate: 67 P: 110 CO: 325 QRS: -68 QRSD: 182 T: 113 QT: 516 QTc: 545 Interpretive Statements Ventricular-paced rhythm No further analysis attempted due to paced rhythm Electronically Signed On 04-26-2018 14:06:19 EST by Virgilio Palacio
== END 2018-04-26 13:15 | disposition home or self-care (01) ==
LOC: EMEROOARM 14:12 → 2ANU 14:12 → SUATTDRO 19:00 → 2ANU 20:25
PROVIDERS: ADMIT Internal Medicine; ATTEND Internal Medicine

== ENCOUNTER 2018-08-15 18:09 | Observation (INO) ==
--- NOTE | 2018-08-15 18:42 | Emergency Department Note ---
Disposition Clinical Impression: LAUREN (acute kidney injury), Peptic ulcer disease Leukocytosis Qualifiers: Leukocytosis type: unspecified Qualified Code(s): D72.829 - Elevated white blood cell count, unspecified Pneumonia Qualifiers: Pneumonia type: due to unspecified organism Laterality: left Lung location: lower lobe of lung Qualified Code(s): J18.1 - Lobar pneumonia, unspecified organism Chest pain Qualifiers: Chest pain type: unspecified Qualified Code(s): R07.9 - Chest pain, unspecified Disposition: Admitted As Inpatient Condition: Fair Time of Disposition: 22:21 General Adult HPI - General Stated complaint: N/V Time Seen by Provider: 08/15/18 18:20 Source: patient, EMS Mode of arrival: EMS Limitations: no limitations Nursing Notes Reviewed: Yes Vital Signs Reviewed: Yes - History of Present Illness HPI Narrative: Patient is a 67-year-old male with past medical history including coronary artery disease, hypertension, diabetes mellitus type 2, congestive heart failure, COPD, GERARDO on CPAP, presenting with chief complaint of shortness of breath. Patient states for the past week he complains of progressively worse lupe shortness of breath. He states today it was its worst. It worsens with exertion. He also complains of an episode of chest tightness while at rest watching TV that lasted several minutes and resolved spontaneously. He states the chest tightness was similar to his prior episodes of chest pain when he had stents placed. He also complains of a productive cough that is yellowish sputum. For the past 2 days he states it is blood streaked. He denies fevers or chills. He also complains of occasional episodes of mid epigastric and right upper quadrant abdominal pain that is sharp and associated with nausea. He denies vomiting. He denies diarrhea, dysuria, hematuria. Pain Scale: 5 - Related Data Home Medications Medication Instructions Recorded Confirmed Allopurinol [Zyloprim 100 MG] 100 mg PO DAILY 04/02/15 04/25/18 Carvedilol [Coreg] 25 mg PO BID 04/02/15 04/25/18 Citalopram [CeleXA] 20 mg PO DAILY 04/02/15 04/25/18 Furosemide [Lasix] 60 mg PO BID 04/02/15 04/25/18 Insulin ASPART [NovoLOG] 32 unit SQ BID 04/02/15 04/25/18 Montelukast [Singulair] 10 mg PO DAILY 04/02/15 04/25/18 Potassium Chloride [K-Tab ER] 20 meq PO DAILY 04/02/15 04/25/18 Ranitidine HCl [Zantac] 150 mg PO BID 04/02/15 04/25/18 Simvastatin [Zocor] 20 mg PO HS 04/02/15 04/25/18 Hydralazine HCl 100 mg PO BID 04/06/17 04/25/18 Isosorbide MONOnitrate (24 HR) 60 mg PO DAILY 04/06/17 04/25/18 [Imdur] Nitroglycerin [Nitrostat] 0.4 mg SL Q5M PRN 04/06/17 04/25/18 hydrOXYzine HCl [Hydroxyzine HCl] 25 mg PO BID 06/01/17 04/25/18 Dulaglutide [Trulicity] 0.75 mg PO QWEEK 03/14/18 04/25/18 Previous Rx's Medication Instructions Recorded Aspirin Enteric Coated [Aspirin EC] 81 mg PO DAILY #30 tab 04/09/17 Albuterol Sulfate [Albuterol 2 puff IH [id number] PRN #1 inhaler 06/02/17 Inhaler] Lactulose 20 gm PO DAILY #1 bottle 04/26/18 Lisinopril [Zestril] 10 mg PO DAILY #30 tablet 04/26/18 Allergies Allergy/AdvReac Type Severity Reaction Status Date / Time No Known Allergies Allergy Verified 03/13/18 22:05 All systems ED: reviewed and negative except as stated. Review of Systems: As Per HPI Constitutional: Denies: fever, chills Cardiovascular: Reports: chest pain Respiratory: Reports: cough, dyspnea Gastrointestinal: Reports: abdominal pain, nausea. Denies: vomiting, diarrhea Genitourinary: Denies: dysuria, hematuria Musculoskeletal: Denies: back pain Neurological: Denies: headache, weakness Past Medical History - Past Medical History Attestation: Yes The following information was validated with the patient. Source: patient Medical history: Reports: cardiomyopathy, CHF, COPD, coronary artery disease, diabetes, hypertension, other Surgical history: Reports: angioplasty/stent, cholecystectomy, coronary bypass (CABG), knee replacement, pacemaker/AICD Psychiatric history: Reports: anxiety, depression - Social History Smoking Status: Former smoker Smokeless Tobacco Status: No Alcohol use: Reports: none Drug use: Reports: none Physical Exam - General Limitations: no limitations General appearance: alert, in no apparent distress - Head Head exam: atraumatic, normocephalic, normal inspection - Eye Eye exam: Present: normal appearance, EOMI - ENT ENT exam: normal exam, normal oropharynx, mucous membranes moist - Neck Neck exam: Present: normal inspection, trachea midline - Chest Chest inspection: Present: normal inspection, symmetric chest wall rise. Absent: tenderness - Respiratory Respiratory exam: Present: other (Diminished breath sounds bilaterally without wheezing or crackles) - Cardiovascular Cardiovascular exam: Present: regular rate, normal rhythm, normal heart sounds - Abdominal Exam Abdominal exam: Present: soft, Non-Tender, normal bowel sounds. Absent: distention, guarding, rebound, rigidity - Extremities Exam Extremities exam: Present: normal capillary refill, other (Mild 1+ lower extremity swelling bilaterally) - Neurological Exam Neurological exam: Present: alert, oriented X3 - Psychiatric Psychiatric exam: Present: normal affect, normal mood - Skin Skin exam: Present: warm, dry, normal color Course Vital Signs Temperature 98.8 F 08/15/18 18:35 Pulse Rate 71 08/15/18 18:35 Respiratory Rate 16 08/15/18 18:35 Blood Pressure 160/87 08/15/18 18:35 O2 Sat by Pulse Oximetry 94 08/15/18 18:35 Temperature 98.8 F 08/15/18 18:35 Pulse Rate 60 08/15/18 22:32 Respiratory Rate 14 08/15/18 22:32 Blood Pressure 147/72 08/15/18 22:32 O2 Sat by Pulse Oximetry 93 08/15/18 22:32 Oxygen Delivery Oxygen Delivery Room Air Medical Decision Making - [facility] Narrative Medical decision making narrative: Patient has significant cardiac history and presenting with worsening shortness of breath and had an episode of chest pain. He states he is chest pain-free at this time. He states he took all of his medications. EKG was obtained and shows atrioventricular dual paced rhythm, heart rate 72, ME interval 179, QRS duration 169, QTc 526. No ST elevation or depression. We will obtain chest x- ray, CBC, BMP, troponin, BNP, lactate, blood cultures. 21:00 Chest x-ray shows no acute cardiopulmonary process. He does have an elevated bilirubin. He has a history cholecystectomy.. Will give Zosyn as he has significant leukocytosis. As he has also been having abdominal pain, we will obtain CT abdomen and pelvis. He remains in no acute distress at this time. IV fluids will be given. He has LAUREN. Troponin 0.03, no electrolyte abnormalities. 22:00 CT abdomen and pelvis shows possible peptic ulcer disease. He does have a left lower lobe pneumonia. He has not had a hospital admission in 3 months. We will give him azithromycin and Rocephin to cover for community acquired pneumonia. Discussed with admitting hospitalist, Dr. Rapp, who accepts patient. Patikelly nt reevaluated and is oxygenating on room air. He has no acute complaints at this time. Remained stable. - Medical Records Medical records reviewed: Yes I reviewed the patient's medical records. - Lab Data Lab results reviewed: Yes I reviewed the patient's lab results. Result diagrams: 08/15/18 18:39 08/15/18 18:39 Lab Results 08/15/18 08/15/18 08/15/18 Range/Units 18:39 18:39 19:41 WBC 21.2 H (4.3-11.1) K/mcL RBC 3.78 L (4.19-5.50) M/mcL Hgb 12.2 L (12.9-16.9) g/dL Hct 37.0 L (37.5-50.1) % MCV 97.9 (83.0-100.0) fL MCH 32.3 (28.0-33.3) pg MCHC 33.0 (31.6-35.5) g/dL RDW 13.6 (11.5-14.5) % Plt Count 110 L (140-400) K/mcL MPV 11.1 (9.4-12.4) fL Immature Gran % 0.7 (0-4) % Seg Neutrophils % 85.3 % Lymphocytes % 3.9 % Monocytes % 9.9 % Eosinophils % 0.0 % Basophils % 0.2 % Neutrophils # 18.1 H (1.6-8.9) K/mcL Lymphocytes # 0.8 (0.6-4.6) K/mcL Monocytes # 2.1 H (0.0-1.3) K/mcL Eosinophils # 0.0 (0.0-0.6) K/mcL Basophils # 0.0 (0.0-0.2) K/mcL Sodium 137 (136-145) mEq/L Potassium 3.6 (3.5-5.1) mEq/L Chloride 101 (98-107) mEq/L Carbon Dioxide 29 (23-29) mEq/L BUN 24 H (8-23) mg/dL Creatinine 1.37 H (0.70-1.30) mg/dL Est GFR ( Amer) > 60 (> 60) Est GFR (Non-Af Amer) 52 L (> 60) BUN/Creatinine Ratio 18 (6-26) Glucose 112 H (70-105) mg/dL Calculated Osmolality 289 (280-300) Lactic Acid 1.1 (0.5-2.2) mmol/L Calcium 9.4 (8.6-10.3) mg/dL Total Bilirubin 2.6 H (0.3-1.0) mg/dL Direct Bilirubin 0.9 H (0.0-0.2) mg/dL Indirect Bilirubin 1.7 H (0.0-1.2) mg/dL AST 18 (13-39) Units/L ALT 12 (7-52) Units/L Alkaline Phosphatase 87 (34-104) Units/L Troponin I 0.03 (< 0.04) ng/mL Serum Total Protein 7.0 (6.4-8.9) g/dL Albumin 4.2 (3.5-5.7) g/dL Globulin 2.8 (2.4-3.5) g/dL Albumin/Globulin Ratio 1.5 (1.1-2.2) Lipase 17 (11-82) Units/L - Radiology Data Radiology results reviewed: Yes I reviewed the patient's radiology results. Chest X-Ray 08/15/18 18:22 IMPRESSION: No acute process. D/ / Arben Ladd MD / Arben Ladd MD Interpreting Provider: Arben Ladd MD Abdomen/Pelvis CT 08/15/18 19:57 IMPRESSION: 1. Patchy consolidative changes throughout the imaged left lung base which are most suggestive of pneumonia. Recommend follow-up to resolution. 2. Partially imaged moderate right effusion and associated atelectasis. 3. Inflammatory changes at the level of the pylorus and 1st portion of the duodenum which are nonspecific given presence of abdominal ascites, however, recommend clinical correlation to exclude the possibility of peptic ulcer disease given history of upper abdominal pain. 4. Nonspecific small amount of abdominal ascites. 5. D/ / Trent Miller MD / Trent Miller MD Interpreting Provider: Trent Miller MD - EKG Data EKG #1 EKG attestation: Yes I reviewed and interpreted this EKG. EKG results narrative: EKG was obtained and shows atrioventricular dual paced rhythm, heart rate 72, ME interval 179, QRS duration 169, QTc 526. No ST elevation or depression. Attestation Statement - Attestation Attestation: I, James Adam, examined this patient and my medical decision-making was reviewed with the DENTAL INSTRUCTOR/PA/Advanced Practice Nurse/Resident Physician. I agree with the documented findings, disposition and treatment plan as described except to the extent set forth below. 67-year-old male presents emergency Department with concerns of shortness of breath, chest pain, cough. Patient states the cough is productive yellow-green sputum that is blood streaked. He reports increased weakness and fatigue over the past few days. This chest pain is described as a tightness that does not radiate. No recent trauma. He also reported abdominal pain and distention. Pt reports severe nausea without vomiting. Abdominal exam revealed a generalized tenderness without evidence of rigidity, guarding, rebound. CT of the abdomen ordered for evaluation of elevated bilirubin showed left lower lobe pneumonia but no acute surgical abdominal findings.. Initial troponin negative. EKG did not show evidence of STEMI. I reviewed the EKG with the resident and agree with the findings. Patient was started on antibiotics emergency department. He will be admitted to the hospitalist for further care and evaluation. Patient had elevated bilirubin however he is status post cholecystectomy and will require further evaluation.
[2018-08-15 18:50] LABS: Basophils % 0.2 %; Hemoglobin 12.2 g/dL (12.9-16.9); Immature Granulocytes % 0.7 % (0-4); Lymphocytes # 0.8 K/mcL (0.6-4.6); Lymphocytes % 3.9 %; Mean Corpuscular Hemoglobin 32.3 pg (28.0-33.3); Mean Corpuscular Volume 97.9 fL (83.0-100.0); Mean Platelet Volume 11.1 fL (9.4-12.4); Monocytes # 2.1 K/mcL (0.0-1.3); Monocytes % 9.9 %; Neutrophils # 18.1 K/mcL (1.6-8.9); Platelet Count 110 K/mcL (140-400); Red Blood Count 3.78 M/mcL (4.19-5.50); Red Cell Distribution Width 13.6 % (11.5-14.5); Segmented Neutrophils % 85.3 %
[2018-08-15 19:11] LABS: Alanine Aminotransferase 12 Units/L (7-52); Albumin 4.2 g/dL (3.5-5.7); Albumin/Globulin Ratio 1.5 (1.1-2.2); Alkaline Phosphatase 87 Units/L (34-104); Aspartate Amino Transferase 18 Units/L (13-39); BUN/Creatinine Ratio 18 (6-26); Bilirubin,Direct 0.9 mg/dL (0.0-0.2); Bilirubin,Indirect 1.7 mg/dL (0.0-1.2); Bilirubin,Total 2.6 mg/dL (0.3-1.0); Blood Urea Nitrogen 24 mg/dL (8-23); Calcium 9.4 mg/dL (8.6-10.3); Carbon Dioxide 29 mEq/L (23-29); Chloride 101 mEq/L (98-107); Globulin 2.8 g/dL (2.4-3.5); Glucose 112 mg/dL (70-105); Lipase 17 Units/L (11-82); Osmolality,Calculated 289 (280-300); Potassium 3.6 mEq/L (3.5-5.1); Sodium 137 mEq/L (136-145); Troponin I 0.03 ng/mL (< 0.04); eGFR For Non-African Americans 52 (> 60)
[2018-08-15] MEDS ORDERED: 0.9 % Sodium Chloride 1,000 ML IVC ONE (19:27)
[2018-08-15] MEDS ORDERED: Piperacillin/Tazobactam 4.5 GM in Water for inj. (sterile) 20 ML 20 ML IVP ONE (19:30)
[2018-08-15] MEDS ORDERED: Piperacillin/Tazobactam 3.375 GM in 0.9 % Sodium Chloride Mini Bag 100 ML IVPB ONE (19:40)
[2018-08-15] MEDS ORDERED: Isovue-370 500 ML BOTTLE IVP ONE (19:57)
[2018-08-15] MEDS ORDERED: Azithromycin 500 MG in D5% in Water 250 ML IVPB ONE (21:53)
[2018-08-15] MEDS ORDERED: cefTRIAXone 1,000 MG in Water for inj. (sterile) 20 ML 10 ML IVP ONE (22:04)
[2018-08-16] MEDS ORDERED: Naloxone 0.4 MG/ML INJ IVP PRN (00:58)
--- NOTE | 2018-08-16 03:52 | Internal Med History&Physical ---
Date of Encounter: 08/16/18 Time of Encounter: 00:25 Internal Medicine - H&P: HPI Chief complaint: Pneumonia Admitted From: Emergency Dept Plans for Post Hospital Care: Home History of present illness: Mr. Suárez is a 67 year old male Patient presented to the emergency room with shortness of breath. He has had worsening symptoms over the last week, particularly with exertion. He has had symptoms even at rest however. He has also had associated chest pain. He has also had diarrhea and vomiting as well the symptoms have improved. He has been experiencing productive cough for the last few days as well with blood-tinged sputum. He has subjective fevers and chills as well but does not have a thermometer at home. He has abdominal pain, which he states he has had for a long time particularly right-sided. In the emergency room patient's initial vital signs were within normal limits. CBC revealed a white count of 21.2, and platelet count of 110. BMP revealed a creatinine of 1.37 and a GFR 52. Electrolytes were within normal limits. He had elevated total bilirubin 2.6 but liver transaminases are within normal limits. Lactic acid was 1.1, troponin was 0.03. Lipase was 17. Chest x-ray revealed no acute process. Abdominal CT results are below but showed findings suggestive of pneumonia in the left lung base as well as inflammatory changes at the pylorus and first portion of duodenum hospital peptic ulcer disease is within the differential. EKG showed a paced rhythm with a prolonged QTC of 526 there are no ischemic changes. He was given a dose of Zosyn as well as azithromycin and Rocephin. Blood cultures were drawn as well as sputum cultures. He was given 1 L normal saline and sent to the medical floor for further management. Upon my evaluation, patient is sitting up in the hospital bed in no acute distress. He states that he is somewhat nauseous but not nearly as bad as he was previously. He currently denies chest pain. He uses a CPAP machine at home. He denies history of liver disease. He hasn't had a colonoscopy in over 10 years. He is a full code. Past Med Surg Social Fam HX - Past Medical History Medical history: cardiomyopathy, CHF, COPD, coronary artery disease, diabetes, hypertension, other Additional medical history: CAD. HTN. GERD. Pacemaker. HLD. deformity of ankle and foot, acquired. ulcer Psychiatric history: anxiety, depression - Past Surgical History Surgical History: angioplasty/stent, cholecystectomy, coronary bypass (CABG), knee replacement, pacemaker/AICD Additional surgical history: Bilateral knee replacement. - Social History Smoking Status: Former smoker Smokeless Tobacco Status: No Alcohol use: none Drug use: none - Family History Mother Adopted: No Living Status: Hx Family Cardiac Disorders: No Hx Family Respiratory Disorders: No Hx Family Cancer: No Hx Family GI Disorders: No Hx Family Endocrine Disorder: No Hx Family Neuromuscular Disorders: No Hx Family Neurologic Disorders: Yes (dementia) Hx Family HEENT Disorders: No Hx Family Autoimmune Disorders: No Father Living Status: Hx Family Cardiac Disorders: Yes Hx Family Respiratory Disorders: No Hx Family Cancer: No Hx Family GI Disorders: No Hx Family Endocrine Disorder: Yes (DM) Hx Family Neuromuscular Disorders: No Hx Family Neurologic Disorders: No Hx Family HEENT Disorders: No Hx Family Autoimmune Disorders: No Internal Medicine - H&P: Meds Allopurinol [Zyloprim 100 MG] 100 mg PO DAILY 04/02/15 [History] Carvedilol [Coreg] 25 mg PO BID 04/02/15 [History] Citalopram [CeleXA] 20 mg PO DAILY 04/02/15 [History] Furosemide [Lasix] 60 mg PO BID 04/02/15 [History] Insulin ASPART [NovoLOG] 32 unit SQ BID 04/02/15 [History] Montelukast [Singulair] 10 mg PO DAILY 04/02/15 [History] Potassium Chloride [K-Tab ER] 20 meq PO DAILY 04/02/15 [History] Ranitidine HCl [Zantac] 150 mg PO BID 04/02/15 [History] Simvastatin [Zocor] 20 mg PO HS 04/02/15 [History] Hydralazine HCl 100 mg PO BID 04/06/17 [History] Isosorbide MONOnitrate (24 HR) [Imdur] 60 mg PO DAILY 04/06/17 [History] Nitroglycerin [Nitrostat] 0.4 mg SL Q5M PRN 04/06/17 [History] Aspirin Enteric Coated [Aspirin EC] 81 mg PO DAILY #30 tab 04/09/17 [Rx] hydrOXYzine HCl [Hydroxyzine HCl] 25 mg PO BID 06/01/17 [History] Albuterol Sulfate [Albuterol Inhaler] 2 puff IH [id number] PRN #1 inhaler 06/02/17 [Rx] Dulaglutide [Trulicity] 0.75 mg PO QWEEK 03/14/18 [History] Lactulose 20 gm PO DAILY #1 bottle 04/26/18 [Rx] Lisinopril [Zestril] 10 mg PO DAILY #30 tablet 04/26/18 [Rx] Allergy/AdvReac Type Severity Reaction Status Date / Time No Known Allergies Allergy Verified 03/13/18 22:05 All Systems PM: A 10-system review of systems was performed and is negative for pertinent findings except as documented above in the HPI. - Constitutional Vitals: Temp Pulse Resp BP Pulse Ox 99.2 F 62 12 143/77 93 08/16/18 03:24 08/16/18 03:24 08/16/18 03:24 08/16/18 03:24 08/16/18 03:24 General appearance: Present: cooperative, A&O X 3, pleasant, no acute distress, answers questions appropriately Exam: - - Head Head exam: Present: normal inspection - Eye Eye exam: Present: EOMI, normal appearance - Respiratory Respiratory exam: Present: decreased breath sounds, rales. Absent: CTAB, respiratory distress, rhonchi, wheezes - Cardiovascular Cardiovascular exam: Present: RRR. Absent: diastolic murmur, systolic murmur - GI/Abdominal GI/Abdominal exam: Present: normal bowel sounds, soft. Absent: tenderness - Extremities Exam Extremities exam: Present: pedal edema, warm, radial pulses palpable and symmetrical. Absent: tenderness Additional comments: 1+ pitting edema lower extremities - Neurological Exam Neurological exam: Present: no focal deficits. Absent: motor sensory deficit, strengths equal and symetr throughout, facial droop, speech deficit Additional comments: Left leg weaker than right, baseline - Skin Skin exam: Present: dry, normal color, warm Internal Med - H&P Results - Labs CBC & Chem 7: 08/16/18 01:22 08/16/18 01:22 Labs: Short CBC 08/15/18 Range/Units 18:39 WBC 21.2 H (4.3-11.1) K/mcL Hgb 12.2 L (12.9-16.9) g/dL Hct 37.0 L (37.5-50.1) % Plt Count 110 L (140-400) K/mcL Neutrophils # 18.1 H (1.6-8.9) K/mcL BMP 08/15/18 18:39 Sodium 137 Potassium 3.6 Chloride 101 Carbon Dioxide 29 BUN 24 H Creatinine 1.37 H Glucose 112 H Calcium 9.4 Cardiac Enzymes 08/15/18 08/16/18 Range/Units 18:39 01:22 Troponin I 0.03 0.03 (< 0.04) ng/mL Liver Function 08/15/18 Range/Units 18:39 Total Bilirubin 2.6 H (0.3-1.0) mg/dL Direct Bilirubin 0.9 H (0.0-0.2) mg/dL AST 18 (13-39) Units/L ALT 12 (7-52) Units/L Alkaline Phosphatase 87 (34-104) Units/L Albumin 4.2 (3.5-5.7) g/dL - Impressions ITS Impressions Chest X-Ray 08/15/18 18:22 IMPRESSION: No acute process. D/ / Arben Ladd MD / Arben Ladd MD Interpreting Provider: Arben Ladd MD Abdomen/Pelvis CT 08/15/18 19:57 IMPRESSION: 1. Patchy consolidative changes throughout the imaged left lung base which are most suggestive of pneumonia. Recommend follow-up to resolution. 2. Partially imaged moderate right effusion and associated atelectasis. 3. Inflammatory changes at the level of the pylorus and 1st portion of the duodenum which are nonspecific given presence of abdominal ascites, however, recommend clinical correlation to exclude the possibility of peptic ulcer disease given history of upper abdominal pain. 4. Nonspecific small amount of abdominal ascites. 5. D/ / Trent Miller MD / Trent Miller MD Interpreting Provider: Trent Miller MD - Assessment and Plan (1) Pneumonia Current Visit: Yes Status: Acute Assessment and plan: CT abdomen showed left lung base consolidation suggestive of pneumonia. Blood cultures drawn in the emergency room as well as sputum culture. Patient was started on azithromycin and ceftriaxone. Continue IV antibiotics Follow-up culture results Obtain urine antigens Qualifiers: Pneumonia type: due to unspecified organism Laterality: left Lung location: lower lobe of lung Qualified Code(s): J18.1 - Lobar pneumonia, un specified organism (2) Chest pain Current Visit: Yes Status: Acute Assessment and plan: Now resolved, patient's troponin 0.03 in the emergency room. EKG showed no ischemic changes. Patient had recent echocardiogram and stress test in February of last year. Cardiac monitoring Continue to trend troponin Qualifiers: Chest pain type: unspecified Qualified Code(s): R07.9 - Chest pain, unspecified (3) Peptic ulcer disease Current Visit: Yes Status: Acute Assessment and plan: As seen on abdomen and pelvis CT patient had an inflammatory change at the level of the pylorus and first portion of the duodenum. Possibility of peptic ulcer cannot be excluded. H pylori antigen Nothing by mouth Consider GI consultation IV Protonix (4) LAUREN (acute kidney injury) Current Visit: Yes Status: Acute Assessment and plan: Elevated above baseline patient received 1 L IV fluids in the emergency room. Continue IV fluid hydration Continue to monitor (5) Diabetes Current Visit: No Status: Chronic Assessment and plan: Patient is an insulin dependent diabetic Monitor sugars Q6H NPO Low dose insulin sliding scale as needed Hold home meds. Qualifiers: Diabetes mellitus type: type 2 Diabetes mellitus supervisor intermediates insulin use: with supervisor intermediates use Diabetes mellitus complication status: with unspecified complications Qualified Code(s): E11.8 - Type 2 diabetes mellitus with unspecified complications; Z79.4 - retirement (current) use of insulin (6) GERARDO on CPAP Current Visit: No Status: Chronic Assessment and plan: Continue CPAP (7) Hyperbilirubinemia Current Visit: Yes Status: Acute Assessment and plan: Elevated bilirubin on initial ER labs. Patient had previous elevated back in February. Last labs from April were within normal limits however. Initially 2.6 in the emergency room improved to 2.2 this morning. Patient not jaundice on exam. Other liver tests within normal limits aside from mildly low platelet count of 110. Patient has history of gallbladder removal in 2016. Continue to monitor Check INR Consider Right upper quadrant ultrasound (8) DVT prophylaxis Current Visit: No Status: Acute Assessment and plan: SCDs - Time Spent With Patient Total time spent is greater than 50% in coordination of care (as documented) at patient's floor/unit and/or counseling patient: Greater than 35 minutes
[2018-08-16] MEDS ORDERED: Piperacillin/Tazobactam 3.375 GM in 0.9 % Sodium Chloride Mini Bag 100 ML IVPB SCH (04:00)
[2018-08-16 04:46] LABS: Hematocrit 35.6 % (37.5-50.1); Hemoglobin 11.7 g/dL (12.9-16.9); Mean Corpuscular HGB Conc 32.9 g/dL (31.6-35.5); Mean Corpuscular Hemoglobin 32.2 pg (28.0-33.3); Mean Corpuscular Volume 98.1 fL (83.0-100.0); Mean Platelet Volume 12.5 fL (9.4-12.4); Platelet Count 110 K/mcL (140-400); Red Blood Count 3.63 M/mcL (4.19-5.50); Red Cell Distribution Width 13.5 % (11.5-14.5)
[2018-08-16 05:00] LABS: Alanine Aminotransferase 11 Units/L (7-52); Albumin 3.8 g/dL (3.5-5.7); Albumin/Globulin Ratio 1.4 (1.1-2.2); Alkaline Phosphatase 77 Units/L (34-104); Aspartate Amino Transferase 17 Units/L (13-39); BUN/Creatinine Ratio 17 (6-26); Bilirubin,Total 2.2 mg/dL (0.3-1.0); Blood Urea Nitrogen 24 mg/dL (8-23); Carbon Dioxide 25 mEq/L (23-29); Chloride 101 mEq/L (98-107); Globulin 2.7 g/dL (2.4-3.5); Glucose 200 mg/dL (70-105); Osmolality,Calculated 296 (280-300); Potassium 3.9 mEq/L (3.5-5.1); Sodium 138 mEq/L (136-145); Total Protein 6.5 g/dL (6.4-8.9); eGFR For Non-African Americans 52 (> 60)
[2018-08-16] MEDS ORDERED: D5% in Water 1,000 ML IVC PRN (05:44)
[2018-08-16] MEDS ORDERED: Dextrose Gel 15 GM/37.5 ML TUBE PO PRN ×2 (05:44)
[2018-08-16] MEDS ORDERED: *HR* Dextrose 50 % in Water (Syg) 50 ML SYRINGE IVP PRN (05:44)
[2018-08-16] MEDS ORDERED: 0.9 % Sodium Chloride 1,000 ML IVC ONE (05:49)
[2018-08-16] MEDS: Insulin LISPRO 300 UNITS/3 ML VIAL SQ SCH ×3 (06:12→17:18)
[2018-08-16] MEDS: Pantoprazole 40 MG VIAL IVP SCH (06:18)
[2018-08-16 07:32] LABS: INR 1.4
[2018-08-16] MEDS: cefTRIAXone 1,000 MG in Water for inj. (sterile) 20 ML 10 ML IVP SCH (08:58)
--- NOTE | 2018-08-16 13:45 | Internal Med Progress Note ---
Hospitalist Progress Note - Encounter Date of Encounter: 08/16/18 Time of Encounter: 11:30 - Subjective Interval History: Mr. Suáerz is a 67 year old male with known past medical history of ischemic cardiomyopathy status post AICD, CAD s/p CABG, hypertension, hyperlipidemia, DM 2 and systolic CHF pt presented to ER with progressively worsening shortness of breath, cough with expectoration. He also complained about diarrhea and vomiting as well as rakesh umbelical abdominal discomfort. He denied any CP. Chest x-ray revealed no acute process. Abdominal CT results are below but showed findings suggestive of pneumonia in the left lung base as well as inflammatory changes at the pylorus and first portion of duodenum due to possible peptic ulcer disease. He was admitted in the hospital and placed him on broad-spectrum antibiotic. Patient stated he is feeling better today. Denied anymore nausea/vomiting. Still have some abdominal discomfort. Denied any chest pain. He does have cough with brownish expectoration - Exam Vitals: Temp Pulse Resp BP Pulse Ox 99.0 F 61 15 163/79 94 08/16/18 10:49 08/16/18 10:49 08/16/18 10:49 08/16/18 10:49 08/16/18 10:49 Exam: Gen: Alert, awake, Oriented to time,place and person Chest: Diminished breath sounds B/L, Moderate wheezing, No crackles, No rales Heart: S1S2+ RRR No murmurs Abd: Soft, Mild discomfort at rakesh umbelical region, BS +, No organomegaly Ext: No edema, pulses are palpable, No calf tenderness Neuro : No acute focal neuro deficits noticed Skin: No rash. - Assessment and Plan (1) Pneumonia Current Visit: Yes Status: Acute Assessment and Plan: Mostly bacterial pneumonia continue empirical antibiotic ceftriaxone and azithromycin continue frequent bronchodilator therapy no need of steroids (2) Chest pain Current Visit: Yes Status: Acute Assessment and Plan: atypical CP mostly due to PNA Negative serial troponin x 3 No acute ischemic changes noticed Will obtain 2 D Echo (3) Hyperbilirubinemia Current Visit: Yes Status: Acute Assessment and Plan: Mostly due to hepatic congestion with Systolic CHF ( Rt heart failure ) Cont trend on LFT's resume diuretics (4) Peptic ulcer disease Current Visit: Yes Status: Acute Assessment and Plan: reviewed CT of Abd report concenring for PUD will f/u H. Pylori may need out pt f/u with GI after his PNA get treated - for possible EGD on PPI (5) CKD (chronic kidney disease) stage 3, GFR 30-59 ml/min Current Visit: No Status: Chronic Assessment and Plan: Stable creatinine at baseline (6) Diabetes Current Visit: No Status: Chronic Assessment and Plan: on ADA diet and ISS (7) GERARDO on CPAP Current Visit: No Status: Chronic Assessment and Plan: use CPAP at night time (8) Congestive heart failure (CHF) Current Visit: No Status: Chronic Assessment and Plan: not in exacerbation resumed all home meds (9) Cardiomyopathy Current Visit: No Status: Chronic Assessment and Plan: s/p AICD - Time Spent with Patient Total time spent is greater than 50% in coordination of care (as documented) at patient's floor/unit and/or counseling patient: Internal Medicine: Result - Labs CBC & Chem 7: 08/16/18 01:22 08/16/18 01:22 Labs: Short CBC 08/15/18 08/16/18 Range/Units 18:39 01:22 WBC 21.2 H 17.0 H (4.3-11.1) K/mcL Hgb 12.2 L 11.7 L (12.9-16.9) g/dL Hct 37.0 L 35.6 L (37.5-50.1) % Plt Count 110 L 110 L (140-400) K/mcL Neutrophils # 18.1 H (1.6-8.9) K/mcL BMP 08/15/18 08/16/18 18:39 01:22 Sodium 137 138 Potassium 3.6 3.9 Chloride 101 101 Carbon Dioxide 29 25 BUN 24 H 24 H Creatinine 1.37 H 1.38 H Glucose 112 H 200 H Calcium 9.4 9.0 Cardiac Enzymes 08/15/18 08/16/18 08/16/18 Range/Units 18:39 01:22 06:32 Troponin I 0.03 0.03 0.03 (< 0.04) ng/mL Liver Function 08/15/18 08/16/18 Range/Units 18:39 01:22 Total Bilirubin 2.6 H 2.2 H (0.3-1.0) mg/dL Direct Bilirubin 0.9 H (0.0-0.2) mg/dL AST 18 17 (13-39) Units/L ALT 12 11 (7-52) Units/L Alkaline Phosphatase 87 77 (34-104) Units/L Albumin 4.2 3.8 (3.5-5.7) g/dL - ABG Interpretation ABG results: PT/INR, D-dimer PT 16.0 Seconds (9.4-12.1) H 08/16/18 06:32 - Impressions Impressions Chest X-Ray 08/15/18 18:22 IMPRESSION: No acute process. D/ / Arben Ladd MD / Arben Ladd MD Interpreting Provider: Arben Ladd MD Abdomen/Pelvis CT 08/15/18 19:57 IMPRESSION: 1. Patchy consolidative changes throughout the imaged left lung base which are most suggestive of pneumonia. Recommend follow-up to resolution. 2. Partially imaged moderate right effusion and associated atelectasis. 3. Inflammatory changes at the level of the pylorus and 1st portion of the duodenum which are nonspecific given presence of abdominal ascites, however, recommend clinical correlation to exclude the possibility of peptic ulcer disease given history of upper abdominal pain. 4. Nonspecific small amount of abdominal ascites. 5. D/ / Trent Miller MD / Trent Miller MD Interpreting Provider: Trent Miller MD Consult Discharge Plan - Plan Referrals: NONE,PCP [Primary Care Provider] - (1) Pneumonia Qualifiers: Pneumonia type: due to unspecified organism Laterality: left Lung location: lower lobe of lung Qualified Code(s): J18.1 - Lobar pneumonia, unspecified organism (2) Chest pain Qualifiers: Chest pain type: unspecified Qualified Code(s): R07.9 - Chest pain, unspecified (6) Diabetes Qualifiers: Diabetes mellitus type: type 2 Diabetes mellitus detention insulin use: with detention use Diabetes mellitus complication status: with unspecified complications Qualified Code(s): E11.8 - Type 2 diabetes mellitus with unspecified complications; Z79.4 - group home (current) use of insulin (9) Cardiomyopathy Qualifiers: Cardiomyopathy type: ischemic Qualified Code(s): I25.5 - Ischemic cardiomyopathy
[2018-08-16] MEDS ORDERED: Albuterol 2.5 MG/3 ML NEBULIZER IH PRN (14:04)
[2018-08-16] MEDS: Famotidine 20 MG TABLET PO SCH (20:00)
[2018-08-16] MEDS: Furosemide 20 MG TABLET PO SCH (20:00)
[2018-08-16] MEDS ORDERED: Azithromycin 500 MG in D5% in Water 250 ML IVPB SCH (21:00)
[2018-08-16] MEDS ORDERED: Insulin LISPRO 300 UNITS/3 ML VIAL SQ SCH (21:00)
--- NOTE | 2018-08-16 21:08 | Electrocardiograph Report ---
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
[2018-08-17] MEDS: Acetaminophen 325 MG TABLET PO PRN ×2 (00:25→06:34)
[2018-08-17 06:21] LABS: Basophils % 0.4 %; Eosinophils # 0.2 K/mcL (0.0-0.6); Eosinophils % 1.7 %; Hematocrit 36.8 % (37.5-50.1); Immature Granulocytes % 0.5 % (0-4); Lymphocytes # 1.2 K/mcL (0.6-4.6); Mean Corpuscular HGB Conc 32.6 g/dL (31.6-35.5); Mean Corpuscular Hemoglobin 32.2 pg (28.0-33.3); Mean Corpuscular Volume 98.7 fL (83.0-100.0); Monocytes # 1.3 K/mcL (0.0-1.3); Monocytes % 11.9 %; Neutrophils # 8.1 K/mcL (1.6-8.9); Platelet Count 123 K/mcL (140-400); Red Blood Count 3.73 M/mcL (4.19-5.50); Red Cell Distribution Width 13.6 % (11.5-14.5); Segmented Neutrophils % 74.5 %
[2018-08-17] MEDS: Pantoprazole 40 MG VIAL IVP SCH (06:35)
[2018-08-17 06:41] LABS: Alanine Aminotransferase 14 Units/L (7-52); Albumin 3.8 g/dL (3.5-5.7); Albumin/Globulin Ratio 1.3 (1.1-2.2); Alkaline Phosphatase 79 Units/L (34-104); Aspartate Amino Transferase 19 Units/L (13-39); BUN/Creatinine Ratio 19 (6-26); Bilirubin,Total 1.1 mg/dL (0.3-1.0); Blood Urea Nitrogen 24 mg/dL (8-23); Calcium 9.2 mg/dL (8.6-10.3); Carbon Dioxide 27 mEq/L (23-29); Chloride 103 mEq/L (98-107); Glucose 98 mg/dL (70-105); Magnesium 2.3 mg/dL (1.6-2.6); Osmolality,Calculated 290 (280-300); Potassium 3.7 mEq/L (3.5-5.1); Sodium 138 mEq/L (136-145); Total Protein 6.8 g/dL (6.4-8.9); eGFR For Non-African Americans 57 (> 60)
[2018-08-17] MEDS: Insulin LISPRO 300 UNITS/3 ML VIAL SQ SCH (07:22)
[2018-08-17] MEDS: Furosemide 20 MG TABLET PO SCH (08:57)
[2018-08-17] MEDS: cefTRIAXone 1,000 MG in Water for inj. (sterile) 20 ML 10 ML IVP SCH (08:58)
[2018-08-17] MEDS: Famotidine 20 MG TABLET PO SCH (08:58)
[2018-08-17] MEDS ORDERED: Aspirin Enteric Coated 81 MG Tablet PO SCH (09:00)
[2018-08-17] MEDS ORDERED: Isosorbide MONOnitrate (24 HR) 60 MG TAB.ER.24H PO SCH (09:00)
--- NOTE | 2018-08-17 10:49 | Discharge Summary ---
<Bryon Sprague R - Last Filed: 08/17/18 10:57> - NOTES TO OUTPATIENT PROVIDER Notes to Outpatient Provider: Finishing course of antibiotics for pneumonia. Will get 2 more days of azithomycin, and 5 more days of augmentin to be completed on 08/22/18. Orders not resulted at time of discharge: Pending orders 08/15/18 19:41 Culture,Blood [BC] Stat 08/15/18 22:04 Sputum Culture [Culture,Sputum with Gram Stain] [RM] Stat 08/16/18 01:16 H. Pylori Antigen, Fecal Routine 08/16/18 01:17 Legionella Antigen [RM] Routine S. Pneumoniae Antigen [RM] Routine 08/16/18 06:00 EKG [ECG 12 lead ECG] [ECG] AM 0600 Date of Encounter: 08/17/18 Time of Encounter: 10:47 - Discharge Diagnosis (1) Pneumonia Priority: Primary Status: Acute Qualifiers: Pneumonia type: due to unspecified organism Laterality: left Lung location: lower lobe of lung Qualified Code(s): J18.1 - Lobar pneumonia, unspecified organism (2) CKD (chronic kidney disease) stage 3, GFR 30-59 ml/min Priority: Secondary Status: Chronic (3) GERARDO on CPAP Priority: Secondary Status: Chronic (4) Diabetes Priority: Secondary Status: Chronic Qualifiers: Diabetes mellitus type: type 2 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 Diabetes mellitus complication status: with unspecified complications Qualified Code(s): E11.8 - Type 2 diabetes mellitus with unspecified complications; 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 Suárez is a 67 year old male with PMH of ICM s/p AICD, CAD s/p CABG, HTN, HLD, and DM2, presented with progressively worsening shortness of breath and productive cough, diagnosed with pneumonia. He also complained about diarrhea and vomiting as well as periumbelical abdominal discomfort. Chest x-ray revealed no acute process, however abdominal CT results showed findings suggestive of pneumonia in the left lung base as well as inflammatory changes at the pylorus and first portion of duodenum due to possible peptic ulcer disease. He was admitted in the hospital and placed him on ceftriazone and azithromycin. He did home some atypical chest pain with negative troponins and no acute ischemia on EKG, likely secondary to PNA. His breathing, chest pain, and N/V improved. He will continue aithromycin for 2 days and is changed to augmentin for 5 more days after discharge. He still has some mild abdominal discomfort. He did have hyperbilirubinemia (initially 2.6, down to 1.1), but this began to improve as well, likely secondary to hepatic congestion related to heart failure. Given the CT results, he may benefit from out-patient EGD for further evaluation. He can continue his PPI. Discharge discussed with: patient - Time Spent with Patient Total time spent providing and/or coordinating discharge services: - Discharge Medications Prescriptions: New Amoxicillin/Clavulanate [Augmentin] 875 mg PO BIDWM #5 tablet Azithromycin 250 mg PO DAILY #2 tablet Omeprazole 20 mg PO DAILY #45 tablet.dr Continued Potassium Chloride [K-Tab ER] 20 meq PO DAILY Carvedilol [Coreg] 25 mg PO BID Simvastatin [Zocor] 20 mg PO HS Citalopram [CeleXA] 20 mg PO DAILY Montelukast [Singulair] 10 mg PO DAILY Allopurinol [Zyloprim 100 MG] 100 mg PO DAILY Furosemide [Lasix] 60 mg PO BID Ranitidine HCl [Zantac] 150 mg PO BID Insulin ASPART [NovoLOG] 40 unit SQ BID Isosorbide MONOnitrate (24 HR) [Imdur] 60 mg PO DAILY Nitroglycerin [Nitrostat] 0.4 mg SL Q5M PRN PRN Reason: Chest Pain Hydralazine HCl 100 mg PO BID Aspirin Enteric Coated [Aspirin EC] 81 mg PO DAILY #30 tab hydrOXYzine HCl [Hydroxyzine HCl] 25 mg PO TID PRN PRN Reason: Anxiety Albuterol Sulfate [Albuterol Inhaler] 2 puff IH [id number] PRN #1 inhaler PRN Reason: Shortness Of Breath Dulaglutide [Trulicity] 0.75 mg PO QWEEK Lactulose 20 gm PO DAILY #1 bottle Lisinopril [Zestril] 10 mg PO DAILY #30 tablet Insulin Degludec [Tresiba Flextouch U-200] 160 unit SQ DAILY Albuterol Neb [Proventil Neb] 2.5 mg IH Q6HR PRN PRN Reason: Shortness Of Breath/Wheezing Insulin DETEMIR [Levemir Flextouch] 70 unit SQ QAM Insulin DETEMIR [Levemir Flextouch] 80 unit SQ QPM Dulaglutide [Trulicity] 0.75 mg SQ QWEEK Home Medications: Allopurinol [Zyloprim 100 MG] 100 mg PO DAILY 04/02/15 [History] Carvedilol [Coreg] 25 mg PO BID 04/02/15 [History] Citalopram [CeleXA] 20 mg PO DAILY 04/02/15 [History] Furosemide [Lasix] 60 mg PO BID 04/02/15 [History] Insulin ASPART [NovoLOG] 40 unit SQ BID 04/02/15 [History] Montelukast [Singulair] 10 mg PO DAILY 04/02/15 [History] Potassium Chloride [K-Tab ER] 20 meq PO DAILY 04/02/15 [History] Ranitidine HCl [Zantac] 150 mg PO BID 04/02/15 [History] Simvastatin [Zocor] 20 mg PO HS 04/02/15 [History] Hydralazine HCl 100 mg PO BID 04/06/17 [History] Isosorbide MONOnitrate (24 HR) [Imdur] 60 mg PO DAILY 04/06/17 [History] Nitroglycerin [Nitrostat] 0.4 mg SL Q5M PRN 04/06/17 [History] Aspirin Enteric Coated [Aspirin EC] 81 mg PO DAILY #30 tab 04/09/17 [Rx] hydrOXYzine HCl [Hydroxyzine HCl] 25 mg PO TID PRN 06/01/17 [History] Albuterol Sulfate [Albuterol Inhaler] 2 puff IH [id number] PRN #1 inhaler 06/02/17 [Rx] Dulaglutide [Trulicity] 0.75 mg PO QWEEK 03/14/18 [History] Lactulose 20 gm PO DAILY #1 bottle 04/26/18 [Rx] Lisinopril [Zestril] 10 mg PO DAILY #30 tablet 04/26/18 [Rx] Albuterol Neb [Proventil Neb] 2.5 mg IH Q6HR PRN 08/16/18 [History] Dulaglutide [Trulicity] 0.75 mg SQ QWEEK 08/16/18 [History] Insulin DETEMIR [Levemir Flextouch] 70 unit SQ QAM 08/16/18 [History] Insulin DETEMIR [Levemir Flextouch] 80 unit SQ QPM 08/16/18 [History] Insulin Degludec [Tresiba Flextouch U-200] 160 unit SQ DAILY 08/16/18 [History] Amoxicillin/Clavulanate [Augmentin] 875 mg PO BIDWM #5 tablet 08/17/18 [Rx] Azithromycin 250 mg PO DAILY #2 tablet 08/17/18 [Rx] Omeprazole 20 mg PO DAILY #45 tablet. 08/17/18 [Rx] Allergies/Adverse Reactions: Allergy/AdvReac Type Severity Reaction Status Date / Time No Known Allergies Allergy Verified 03/13/18 22:05 Date of admission: 08/15/18 22:15 Primary care physician: PCP NONE Consults: 08/16/18 01:17 Consult to Nurse Navigator [CONS] Routine Comment: Discharging clinician: Bryon Sprague Anticipated date of discharge: 08/17/18 - Constitutional Vitals: Temp Pulse Resp BP Pulse Ox 98.2 F 59 16 175/84 93 08/17/18 06:58 08/17/18 06:58 08/17/18 06:58 08/17/18 06:58 08/17/18 06:58 Exam: GEN: No acute distress, A&O3 HEAD: Atraumatic, normocephalic EYES: Pupils symmetric, sclera white, conjunctiva pink HEART: RRR, normal S1 and S2, no murmurs LUNGS: Diminished bilaterally, blunted breath sounds in LLL, no wheezing ABD: Soft, mild periumbilical tenderness, nondistended, bowel sounds present EXT: No edema noted, pulses 2/4 NEURO: No focal deficits, cooperative with exam - Patient Status Disposition: Home, Self-Care Condition: Fair Functional capacity at discharge: independent ambulation Overall status at discharge: patient is progressing back to baseline - Discharge Instructions Instructions: Amoxicillin/Clavulanate Potassium (By mouth), Azithromycin (By mouth), Chest Pain (DC), Pneumonia (DC) Follow Up With: Teena Jimenez MD [Partnered Physician] - (APPOINTMENT HAS BEEN REQUESTED) Gus Laws MD [Partnered Physician] - (4-6 weeks, suspect ulcers on CT abdomen, needs follow up EGD after trial of PPI therapy) Forms: Work/School Release Additional Instructions: Please take azithromycin for 2 more days and Augmentin for 5 more days as prescribed Continue to take your other home medications as prescribed Please follow-up with her primary care physician in 1-2 weeks Please seek medical attention if your symptoms return or worsen - Diet and Activity Activity: increase activity as tolerated Diet: diabetic diet, low fat, low cholesterol <Domingo Khalil - Last Filed: 08/17/18 12:11> Date of Encounter: 08/17/18 Date of admission: 08/15/18 22:15 Primary care physician: PCP NONE - Attending Attestation Patient seen and examined. I agree with the discharge plan as documented above by the resident. Patient clinically well appearing on day of discharge. Maintaining good PO, no SOB and no hypoxia, lung exam with rhonchi and egophony LLL, leukocytosis resolved. Will discharge on PO augmentin. Given presenting complaint of abd pain and CT showing possible ulcers, pt started on PPI and will be referred for outpatient GI follow up with consideration for EGD.
[2018-08-17 10:50] VITALS: BP 153/71
== END 2018-08-17 12:25 | disposition home or self-care (01) ==
LOC: 3BNU 18:09 → EMEROOARM 18:09 → SUATTDRO 22:15 → 3BNU 23:11
PROVIDERS: ADMIT Pediatrics; ATTEND Family Medicine

== ENCOUNTER 2019-04-22 21:13 | Observation (INO) ==
[2019-04-22] MEDS ORDERED: Furosemide 40 MG/4 ML VIAL IVP ONE (21:23)
[2019-04-22 21:58] LABS: Basophils % 0.5 %; Eosinophils # 0.1 K/mcL (0.0-0.6); Eosinophils % 1.3 %; Hemoglobin 11.8 g/dL (12.9-16.9); Immature Granulocytes % 0.3 % (0-4); Lymphocytes # 1.1 K/mcL (0.6-4.6); Lymphocytes % 13.6 %; Mean Corpuscular HGB Conc 33.7 g/dL (31.6-35.5); Mean Corpuscular Hemoglobin 32.5 pg (28.0-33.3); Mean Corpuscular Volume 96.4 fL (83.0-100.0); Monocytes # 0.8 K/mcL (0.0-1.3); Monocytes % 10.5 %; Neutrophils # 5.7 K/mcL (1.6-8.9); Platelet Count 155 K/mcL (140-400); Red Blood Count 3.63 M/mcL (4.19-5.50); Red Cell Distribution Width 14.6 % (11.5-14.5); Segmented Neutrophils % 73.8 %; White Blood Count 7.7 K/mcL (4.3-11.1)
[2019-04-22 22:21] LABS: BUN/Creatinine Ratio 16 (6-26); Blood Urea Nitrogen 19 mg/dL (8-23); Calcium 8.9 mg/dL (8.6-10.3); Carbon Dioxide 22 mEq/L (23-29); Chloride 108 mEq/L (98-107); Glucose 202 mg/dL (70-105); Osmolality,Calculated 294 (280-300); Potassium 4.3 mEq/L (3.5-5.1); Sodium 138 mEq/L (136-145); Troponin I < 0.03 ng/mL (< 0.04); eGFR For African Americans > 60 (> 60); eGFR For Non-African Americans > 60 (> 60)
[2019-04-23] MEDS ORDERED: Naloxone 0.4 MG/ML INJ IVP PRN (04:57)
[2019-04-23] MEDS ORDERED: Dextrose Gel 15 GM/37.5 ML TUBE PO PRN ×2 (05:01)
[2019-04-23] MEDS ORDERED: *HR* Dextrose 50 % in Water (Syg) 50 ML SYRINGE IVP PRN (05:01)
[2019-04-23] MEDS ORDERED: D5% in Water 1,000 ML IVC PRN (05:01)
[2019-04-23 06:33] LABS: Hematocrit 35.4 % (37.5-50.1); Hemoglobin 11.7 g/dL (12.9-16.9); Mean Corpuscular HGB Conc 33.1 g/dL (31.6-35.5); Mean Corpuscular Hemoglobin 32.1 pg (28.0-33.3); Mean Corpuscular Volume 97.3 fL (83.0-100.0); Mean Platelet Volume 11.5 fL (9.4-12.4); Platelet Count 154 K/mcL (140-400); Red Blood Count 3.64 M/mcL (4.19-5.50); Red Cell Distribution Width 14.6 % (11.5-14.5); White Blood Count 7.3 K/mcL (4.3-11.1)
[2019-04-23 06:54] LABS: BUN/Creatinine Ratio 18 (6-26); Blood Urea Nitrogen 22 mg/dL (8-23); Calcium 9.2 mg/dL (8.6-10.3); Carbon Dioxide 29 mEq/L (23-29); Chloride 103 mEq/L (98-107); Glucose 195 mg/dL (70-105); Osmolality,Calculated 303 (280-300); Potassium 3.7 mEq/L (3.5-5.1); Sodium 142 mEq/L (136-145); eGFR For African Americans > 60 (> 60); eGFR For Non-African Americans > 60 (> 60)
[2019-04-23] MEDS: Furosemide 40 MG/4 ML VIAL IVP SCH ×2 (08:00→21:45)
[2019-04-23] MEDS: Insulin LISPRO 300 UNITS/3 ML VIAL SQ SCH ×3 (08:01→16:44)
[2019-04-23] MEDS: carvediloL 25 MG TABLET PO SCH ×2 (08:03→16:45)
[2019-04-23] MEDS: hydrALAZINE 25 MG TABLET PO SCH ×2 (08:03→21:45)
[2019-04-23] MEDS: Aspirin Enteric Coated 81 MG Tablet PO SCH (08:03)
[2019-04-23] MEDS: Lisinopril 20 MG TABLET PO SCH (08:04)
[2019-04-23] MEDS: Acetaminophen 325 MG TABLET PO PRN ×2 (15:03→22:10)
[2019-04-23] MEDS: *HR* Heparin 5,000 UNIT/ML VIAL SQ SCH (17:42)
[2019-04-23] MEDS ORDERED: Insulin LISPRO 300 UNITS/3 ML VIAL SQ SCH (21:00)
[2019-04-24 05:38] LABS: BUN/Creatinine Ratio 23 (6-26); Blood Urea Nitrogen 25 mg/dL (8-23); Calcium 9.1 mg/dL (8.6-10.3); Carbon Dioxide 29 mEq/L (23-29); Chloride 103 mEq/L (98-107); Glucose 172 mg/dL (70-105); Osmolality,Calculated 306 (280-300); Potassium 3.4 mEq/L (3.5-5.1); Sodium 144 mEq/L (136-145); eGFR For African Americans > 60 (> 60); eGFR For Non-African Americans > 60 (> 60)
[2019-04-24] MEDS: *HR* Heparin 5,000 UNIT/ML VIAL SQ SCH (05:50)
[2019-04-24 07:52] VITALS: BP 159/83
[2019-04-24] MEDS: Aspirin Enteric Coated 81 MG Tablet PO SCH (08:09)
[2019-04-24] MEDS: carvediloL 25 MG TABLET PO SCH (08:09)
[2019-04-24] MEDS: Furosemide 40 MG/4 ML VIAL IVP SCH (08:10)
[2019-04-24] MEDS: Lisinopril 20 MG TABLET PO SCH (08:10)
[2019-04-24] MEDS: hydrALAZINE 25 MG TABLET PO SCH (08:10)
[2019-04-24] MEDS: Insulin LISPRO 300 UNITS/3 ML VIAL SQ SCH ×2 (08:12→12:45)
[2019-04-24] MEDS ORDERED: Isosorbide MONOnitrate (24 HR) 60 MG TAB.ER.24H PO SCH (09:00)
[2019-04-24] MEDS ORDERED: FLU Vac QV 19-20 (6Month+)/PF 0.5 ML SYRINGE IM ONE (13:00)
== END 2019-04-24 14:48 | disposition home or self-care (01) ==
LOC: 3ANU 21:13 → EMEROOARM 21:13 → SUATTDRO 04-23 00:03 → 3ANU 04-23 00:36
PROVIDERS: ADMIT Internal Medicine; ATTEND Internal Medicine

== ENCOUNTER 2019-06-08 00:04 | Observation (INO) ==
[2019-06-08 01:38] LABS: BUN/Creatinine Ratio 21 (6-26); Blood Urea Nitrogen 27 mg/dL (8-23); Calcium 8.9 mg/dL (8.6-10.3); Carbon Dioxide 29 mEq/L (23-29); Chloride 102 mEq/L (98-107); Glucose 77 mg/dL (70-105); Osmolality,Calculated 286 (280-300); Potassium 3.4 mEq/L (3.5-5.1); Sodium 136 mEq/L (136-145); eGFR For African Americans > 60 (> 60); eGFR For Non-African Americans 56 (> 60)
[2019-06-08 01:39] LABS: Troponin I 0.03 ng/mL (< 0.04)
[2019-06-08 01:42] LABS: Mean Corpuscular Hemoglobin 31.9 pg (28.0-33.3)
[2019-06-08 01:44] LABS: Basophils % 0.3 %; Eosinophils # 0.1 K/mcL (0.0-0.6); Eosinophils % 1.7 %; Hematocrit 34.8 % (37.5-50.1); Hemoglobin 11.5 g/dL (12.9-16.9); Immature Granulocytes % 0.3 % (0-4); Immature Platelets 7.1 % (1.1-6.1); Lymphocytes # 0.9 K/mcL (0.6-4.6); Lymphocytes % 16.4 %; Mean Corpuscular Volume 96.4 fL (83.0-100.0); Neutrophils # 3.7 K/mcL (1.6-8.9); Platelet Count 101 K/mcL (140-400); Red Blood Count 3.61 M/mcL (4.19-5.50); Red Cell Distribution Width 13.3 % (11.5-14.5); Segmented Neutrophils % 64.3 %; White Blood Count 5.7 K/mcL (4.3-11.1)
[2019-06-08] MEDS ORDERED: Furosemide 40 MG/4 ML VIAL IVP ONE ×3 (02:42→17:00)
[2019-06-08] MEDS ORDERED: Albuterol 2.5 MG/3 ML NEBULIZER IH PRN (03:42)
[2019-06-08] MEDS ORDERED: Benzonatate 100 MG CAPSULE PO PRN (03:42)
[2019-06-08] MEDS ORDERED: Naloxone 0.4 MG/ML INJ IVP PRN (03:42)
[2019-06-08] MEDS ORDERED: GuaiFENesin/Dextromethorphan TABLET PO PRN (03:45)
[2019-06-08] MEDS ORDERED: Dextrose Gel 15 GM/37.5 ML TUBE PO PRN ×2 (03:46)
[2019-06-08] MEDS ORDERED: D5% in Water 1,000 ML IVC PRN (03:46)
[2019-06-08] MEDS ORDERED: *HR* Dextrose 50 % in Water (Syg) 50 ML SYRINGE IVP PRN (03:46)
[2019-06-08] MEDS ORDERED: Nitroglycerin 0.4 MG TAB.SUBL SL PRN (03:46)
[2019-06-08 03:52] LABS: ABG Base Excess 7 mEq/L (-2 to 3); ABG HCO3 32 mEq/L (21-27); ABG Oxygen Saturation 97 % (95-98); ABG PCO2 45 mmHg (35-45); ABG PH 7.46 pH Units (7.32-7.45); ABG PO2 84 mmHg (85-104); ABG TCO2 33 mEq/L (20-26)
[2019-06-08] MEDS: Ipratropium/Albuterol Neb 3 ML IH SCH ×5 (04:35→22:23)
[2019-06-08 04:50] LABS: Bilirubin,Urine Negative (Negative); Blood,Urine Negative (Negative); Clarity,Urine Clear (Clear); Color,Urine Yellow (Yellow); Glucose,Urine (UA) Normal (Normal); Ketones,Urine Negative (Negative); Leukocyte Esterase,Urine Negative (Negative); Nitrite,Urine Negative (Negative); Protein,Urine Negative (Neg-Trace); Specific Gravity,Urine 1.012 (1.010-1.025); Urobilinogen,Urine Normal (Normal)
[2019-06-08] MEDS: *HR* Heparin 5,000 UNIT/ML VIAL SQ SCH ×2 (07:03→17:23)
[2019-06-08 08:05] LABS: Mean Corpuscular Volume 96.3 fL (83.0-100.0)
[2019-06-08 08:07] LABS: Basophils % 0.2 %; Eosinophils # 0.1 K/mcL (0.0-0.6); Eosinophils % 2.4 %; Hematocrit 36.3 % (37.5-50.1); Hemoglobin 11.9 g/dL (12.9-16.9); Immature Granulocytes % 0.4 % (0-4); Immature Platelets 5.8 % (1.1-6.1); Lymphocytes % 21.1 %; Mean Corpuscular HGB Conc 32.8 g/dL (31.6-35.5); Mean Corpuscular Hemoglobin 31.6 pg (28.0-33.3); Mean Platelet Volume 11.4 fL (9.4-12.4); Monocytes # 0.7 K/mcL (0.0-1.3); Monocytes % 15.8 %; Neutrophils # 2.7 K/mcL (1.6-8.9); Red Blood Count 3.77 M/mcL (4.19-5.50); Red Cell Distribution Width 13.2 % (11.5-14.5); Segmented Neutrophils % 60.1 %; White Blood Count 4.5 K/mcL (4.3-11.1)
[2019-06-08 08:21] LABS: Platelet Count 96 K/mcL (140-400)
[2019-06-08] MEDS: lisinopriL 20 MG TABLET PO SCH (08:26)
[2019-06-08] MEDS: Isosorbide MONOnitrate (24 HR) 60 MG TAB.ER.24H PO SCH (08:26)
[2019-06-08] MEDS: carvediloL 25 MG TABLET PO SCH ×2 (08:26→17:23)
[2019-06-08] MEDS: hydrALAZINE 25 MG TABLET PO SCH ×2 (08:26→20:25)
[2019-06-08] MEDS: Famotidine 20 MG TABLET PO SCH ×2 (08:26→17:23)
[2019-06-08] MEDS: Insulin LISPRO 300 UNITS/3 ML VIAL SQ SCH ×3 (08:29→17:24)
[2019-06-08 08:53] LABS: Platelet Estimate Decreased (Normal)
[2019-06-08] MEDS ORDERED: INSULIN DEGLUDEC 25 UNIT SQ SCH (09:00)
[2019-06-08] MEDS: Insulin DETEMIR 100 UNIT/ML X5UNITS SQ SCH (10:12)
[2019-06-08] MEDS ORDERED: Furosemide 100 MG/10 ML VIAL IVP SCH (19:00)
[2019-06-09] MEDS: Ipratropium/Albuterol Neb 3 ML IH SCH ×2 (03:11→11:09)
[2019-06-09 04:42] LABS: Hemoglobin 11.9 g/dL (12.9-16.9); Mean Corpuscular HGB Conc 32.2 g/dL (31.6-35.5); Mean Corpuscular Hemoglobin 30.9 pg (28.0-33.3); Mean Corpuscular Volume 96.1 fL (83.0-100.0); Mean Platelet Volume 11.2 fL (9.4-12.4); Platelet Count 112 K/mcL (140-400); Red Blood Count 3.85 M/mcL (4.19-5.50); Red Cell Distribution Width 13.2 % (11.5-14.5); White Blood Count 3.9 K/mcL (4.3-11.1)
[2019-06-09 05:05] LABS: BUN/Creatinine Ratio 23 (6-26); Blood Urea Nitrogen 30 mg/dL (8-23); Carbon Dioxide 30 mEq/L (23-29); Chloride 101 mEq/L (98-107); Glucose 130 mg/dL (70-105); Osmolality,Calculated 296 (280-300); Potassium 3.6 mEq/L (3.5-5.1); Sodium 139 mEq/L (136-145); eGFR For African Americans > 60 (> 60); eGFR For Non-African Americans 55 (> 60)
[2019-06-09] MEDS: *HR* Heparin 5,000 UNIT/ML VIAL SQ SCH (06:02)
[2019-06-09 06:57] VITALS: BP 126/82
[2019-06-09] MEDS: Insulin LISPRO 300 UNITS/3 ML VIAL SQ SCH ×2 (07:52→12:00)
[2019-06-09] MEDS ORDERED: Furosemide 40 MG TABLET PO SCH (08:00)
[2019-06-09] MEDS: Famotidine 20 MG TABLET PO SCH (08:45)
[2019-06-09] MEDS: carvediloL 25 MG TABLET PO SCH (08:45)
[2019-06-09] MEDS: Isosorbide MONOnitrate (24 HR) 60 MG TAB.ER.24H PO SCH (08:46)
[2019-06-09] MEDS: hydrALAZINE 25 MG TABLET PO SCH (08:46)
[2019-06-09] MEDS: lisinopriL 20 MG TABLET PO SCH (08:46)
[2019-06-09] MEDS: Insulin DETEMIR 100 UNIT/ML X5UNITS SQ SCH (08:49)
== END 2019-06-09 12:23 | disposition home or self-care (01) ==
LOC: EMEROOARM 00:04 → 2NENU 00:04 → SUATTDRO 03:35 → 2NENU 05:10
PROVIDERS: ADMIT Internal Medicine; ATTEND Internal Medicine

== ENCOUNTER 2019-11-26 19:39 | Inpatient (IN) ==
[2019-11-26 20:19] LABS: Basophils % 0.2 %; Eosinophils # 0.1 K/mcL (0.0-0.6); Eosinophils % 1.5 %; Hematocrit 35.3 % (37.5-50.1); Hemoglobin 11.4 g/dL (12.9-16.9); Immature Granulocytes % 0.5 % (0-4); Lymphocytes # 0.9 K/mcL (0.6-4.6); Lymphocytes % 10.5 %; Mean Corpuscular HGB Conc 32.3 g/dL (31.6-35.5); Mean Corpuscular Hemoglobin 31.3 pg (28.0-33.3); Mean Platelet Volume 11.7 fL (9.4-12.4); Monocytes # 0.9 K/mcL (0.0-1.3); Monocytes % 10.9 %; Neutrophils # 6.5 K/mcL (1.6-8.9); Platelet Count 145 K/mcL (140-400); Red Blood Count 3.64 M/mcL (4.19-5.50); Red Cell Distribution Width 13.7 % (11.5-14.5); Segmented Neutrophils % 76.4 %; White Blood Count 8.6 K/mcL (4.3-11.1)
[2019-11-26 20:41] LABS: Calcium 9.1 mg/dL (8.6-10.3); Potassium 4.1 mEq/L (3.5-5.1)
[2019-11-26 20:42] LABS: Troponin I 0.03 ng/mL (< 0.04)
[2019-11-26 20:54] LABS: Thyroid Stimulating Hormone 1.58 mcIU/mL (0.340-5.600)
[2019-11-26] MEDS ORDERED: 0.9 % Sodium Chloride 1,000 ML IVC SCH (22:30)
[2019-11-26] MEDS ORDERED: Naloxone 0.4 MG/ML INJ IVP PRN (23:02)
[2019-11-26] MEDS ORDERED: *HR* Dextrose 50 % in Water (Vial) 50 ML VIAL IVP PRN (23:05)
[2019-11-26] MEDS ORDERED: D5% in Water 1,000 ML IVC PRN (23:05)
[2019-11-26] MEDS ORDERED: Dextrose Gel 15 GM/37.5 ML TUBE PO PRN ×2 (23:05)
[2019-11-26] MEDS: carvediloL 25 MG TABLET PO SCH (23:56)
[2019-11-27] MEDS ORDERED: 0.9 % Sodium Chloride 1,000 ML IVC SCH (00:58)
[2019-11-27] MEDS ORDERED: Nitroglycerin 0.4 MG TAB.SUBL SL PRN (00:58)
[2019-11-27] MEDS ORDERED: Perflutren Lipid Microsphere 1.3 ML in 0.9 % Sodium Chloride 8.7 ML IVP PRN (01:22)
[2019-11-27 02:54] LABS: Basophils % 0.3 %; Eosinophils # 0.1 K/mcL (0.0-0.6); Eosinophils % 1.5 %; Hematocrit 33.9 % (37.5-50.1); Hemoglobin 10.7 g/dL (12.9-16.9); Immature Granulocytes % 0.3 % (0-4); Lymphocytes % 12.5 %; Mean Corpuscular HGB Conc 31.6 g/dL (31.6-35.5); Mean Corpuscular Hemoglobin 30.7 pg (28.0-33.3); Mean Corpuscular Volume 97.4 fL (83.0-100.0); Mean Platelet Volume 11.4 fL (9.4-12.4); Monocytes # 0.9 K/mcL (0.0-1.3); Monocytes % 12.4 %; Neutrophils # 5.5 K/mcL (1.6-8.9); Platelet Count 130 K/mcL (140-400); Red Blood Count 3.48 M/mcL (4.19-5.50); Red Cell Distribution Width 13.8 % (11.5-14.5); White Blood Count 7.6 K/mcL (4.3-11.1)
[2019-11-27 03:13] LABS: Albumin 3.9 g/dL (3.5-5.7); Albumin/Globulin Ratio 1.4 (1.1-2.2); Bilirubin,Total 0.8 mg/dL (0.3-1.0); Calcium 8.9 mg/dL (8.6-10.3); Globulin 2.7 g/dL (2.4-3.5); Potassium 3.9 mEq/L (3.5-5.1); Total Protein 6.6 g/dL (6.4-8.9); Troponin I 0.03 ng/mL (< 0.04)
[2019-11-27] MEDS ORDERED: *HR* Heparin 5,000 UNIT/ML VIAL SQ SCH (06:00)
[2019-11-27] MEDS: Insulin LISPRO 300 UNITS/3 ML VIAL SQ SCH ×3 (07:30→18:29)
[2019-11-27] MEDS: carvediloL 25 MG TABLET PO SCH ×2 (08:00→18:31)
[2019-11-27] MEDS ORDERED: lisinopriL 20 MG TABLET PO SCH (09:00)
[2019-11-27] MEDS ORDERED: hydrALAZINE 25 MG TABLET PO SCH (09:00)
[2019-11-27] MEDS ORDERED: Furosemide 20 MG TABLET PO SCH (09:00)
[2019-11-27] MEDS: Famotidine 20 MG TABLET PO SCH (12:41)
[2019-11-27] MEDS: allopurinoL 100 MG TABLET PO SCH (12:41)
[2019-11-27] MEDS: Aspirin Enteric Coated 81 MG Tablet PO SCH (12:41)
[2019-11-27] MEDS: Isosorbide MONOnitrate (24 HR) 60 MG TAB.ER.24H PO SCH (12:41)
[2019-11-27] MEDS: Fluticasone Propionate Nasal 50 MCG/SPRAY BOTTLE NS SCH (12:42)
[2019-11-27] MEDS: Apixaban 5 MG TABLET PO SCH ×2 (14:58→20:58)
[2019-11-27] MEDS: hydrALAZINE 25 MG TABLET PO SCH (20:57)
[2019-11-27] MEDS: Insulin DETEMIR 100 UNIT/ML X5UNITS SQ SCH (20:57)
[2019-11-28 02:04] LABS: Hematocrit 32.7 % (37.5-50.1); Hemoglobin 10.6 g/dL (12.9-16.9); Mean Corpuscular HGB Conc 32.4 g/dL (31.6-35.5); Mean Corpuscular Hemoglobin 31.9 pg (28.0-33.3); Mean Corpuscular Volume 98.5 fL (83.0-100.0); Mean Platelet Volume 11.1 fL (9.4-12.4); Platelet Count 123 K/mcL (140-400); Red Blood Count 3.32 M/mcL (4.19-5.50); Red Cell Distribution Width 13.8 % (11.5-14.5); White Blood Count 6.2 K/mcL (4.3-11.1)
[2019-11-28 02:20] LABS: BUN/Creatinine Ratio 26 (6-26); Blood Urea Nitrogen 31 mg/dL (8-23); Calcium 8.7 mg/dL (8.6-10.3); Carbon Dioxide 22 mEq/L (23-29); Chloride 110 mEq/L (98-107); Glucose 99 mg/dL (70-105); Magnesium 2.1 mg/dL (1.6-2.6); Osmolality,Calculated 297 (280-300); Phosphorous 3.2 mg/dL (2.7-4.5); Potassium 3.7 mEq/L (3.5-5.1); Sodium 140 mEq/L (136-145); eGFR For African Americans > 60 (> 60); eGFR For Non-African Americans > 60 (> 60)
[2019-11-28] MEDS: Aspirin Enteric Coated 81 MG Tablet PO SCH (08:03)
[2019-11-28] MEDS: Famotidine 20 MG TABLET PO SCH (08:03)
[2019-11-28] MEDS: allopurinoL 100 MG TABLET PO SCH (08:04)
[2019-11-28] MEDS: carvediloL 25 MG TABLET PO SCH (08:04)
[2019-11-28] MEDS: hydrALAZINE 25 MG TABLET PO SCH (08:04)
[2019-11-28] MEDS: Apixaban 5 MG TABLET PO SCH ×2 (08:04→20:02)
[2019-11-28] MEDS: Isosorbide MONOnitrate (24 HR) 60 MG TAB.ER.24H PO SCH (08:04)
[2019-11-28] MEDS: Fluticasone Propionate Nasal 50 MCG/SPRAY BOTTLE NS SCH (08:05)
[2019-11-28] MEDS: Insulin LISPRO 300 UNITS/3 ML VIAL SQ SCH ×3 (08:05→16:58)
[2019-11-28] MEDS ORDERED: NON-FORMULARY MEDICATION 1 EACH EACH (Famotidine [Pepcid] 40 MG) PO SCH (09:00)
[2019-11-28] MEDS ORDERED: Metoprolol XL (24 HR) Succ 50 MG TAB.ER.24H PO SCH (11:09)
[2019-11-28] MEDS ORDERED: *HR* Amiodarone 200 MG TABLET PO SCH (11:15)
[2019-11-28] MEDS: lisinopriL 5 MG TABLET PO SCH (12:47)
[2019-11-28] MEDS: *HR* Amiodarone 200 MG TABLET PO SCH (20:02)
[2019-11-28] MEDS: Insulin DETEMIR 100 UNIT/ML X5UNITS SQ SCH (20:02)
[2019-11-29] MEDS: lisinopriL 5 MG TABLET PO SCH
[2019-11-29 01:14] LABS: Hematocrit 36.6 % (37.5-50.1); Hemoglobin 11.4 g/dL (12.9-16.9); Mean Corpuscular HGB Conc 31.1 g/dL (31.6-35.5); Mean Corpuscular Hemoglobin 31.1 pg (28.0-33.3); Mean Corpuscular Volume 99.7 fL (83.0-100.0); Mean Platelet Volume 11.5 fL (9.4-12.4); Platelet Count 135 K/mcL (140-400); Red Blood Count 3.67 M/mcL (4.19-5.50); Red Cell Distribution Width 13.7 % (11.5-14.5); White Blood Count 8.1 K/mcL (4.3-11.1)
[2019-11-29 01:30] LABS: BUN/Creatinine Ratio 23 (6-26); Blood Urea Nitrogen 32 mg/dL (8-23); Calcium 9.3 mg/dL (8.6-10.3); Carbon Dioxide 25 mEq/L (23-29); Chloride 107 mEq/L (98-107); Glucose 131 mg/dL (70-105); Osmolality,Calculated 297 (280-300); Potassium 4.3 mEq/L (3.5-5.1); Sodium 139 mEq/L (136-145); eGFR For African Americans > 60 (> 60); eGFR For Non-African Americans 51 (> 60)
[2019-11-29] MEDS ORDERED: Metoprolol XL (24 HR) Succ 50 MG TAB.ER.24H PO SCH (06:45)
[2019-11-29] MEDS: Metoprolol XL (24 HR) Succ 50 MG TAB.ER.24H PO SCH ×2 (06:47→21:14)
[2019-11-29] MEDS ORDERED: *HR* Digoxin 0.5 MG/2 ML AMPUL IVP ONE (09:32)
[2019-11-29] MEDS: Famotidine 20 MG TABLET PO SCH (09:46)
[2019-11-29] MEDS: *HR* Amiodarone 200 MG TABLET PO SCH ×2 (09:46→21:14)
[2019-11-29] MEDS: Apixaban 5 MG TABLET PO SCH ×2 (09:46→21:15)
[2019-11-29] MEDS: Aspirin Enteric Coated 81 MG Tablet PO SCH (09:47)
[2019-11-29] MEDS: Insulin LISPRO 300 UNITS/3 ML VIAL SQ SCH ×3 (09:47→18:44)
[2019-11-29] MEDS: Isosorbide MONOnitrate (24 HR) 60 MG TAB.ER.24H PO SCH (09:47)
[2019-11-29] MEDS: allopurinoL 100 MG TABLET PO SCH (09:47)
[2019-11-29] MEDS: Fluticasone Propionate Nasal 50 MCG/SPRAY BOTTLE NS SCH (09:47)
[2019-11-29] MEDS: *HR* Digoxin 0.5 MG/2 ML AMPUL IVP SCH ×2 (16:00→19:52)
[2019-11-29] MEDS: Insulin DETEMIR 100 UNIT/ML X5UNITS SQ SCH (21:15)
[2019-11-29] MEDS ORDERED: *HR* Metoprolol 5 MG/5 ML VIAL IVP ONE (22:49)
[2019-11-30 06:34] VITALS: BP 123/73
[2019-11-30 07:35] LABS: Basophils % 0.4 %; Eosinophils # 0.1 K/mcL (0.0-0.6); Eosinophils % 1.5 %; Hematocrit 36.5 % (37.5-50.1); Hemoglobin 11.3 g/dL (12.9-16.9); Immature Granulocytes % 0.4 % (0-4); Lymphocytes # 1.2 K/mcL (0.6-4.6); Lymphocytes % 16.4 %; Mean Corpuscular Hemoglobin 30.8 pg (28.0-33.3); Mean Corpuscular Volume 99.5 fL (83.0-100.0); Mean Platelet Volume 12.1 fL (9.4-12.4); Monocytes # 0.8 K/mcL (0.0-1.3); Monocytes % 11.5 %; Nucleated Red Blood Cells 0.3 /100 WBC (0); Platelet Count 123 K/mcL (140-400); Red Blood Count 3.67 M/mcL (4.19-5.50); Red Cell Distribution Width 13.6 % (11.5-14.5); Segmented Neutrophils % 69.8 %; White Blood Count 7.1 K/mcL (4.3-11.1)
[2019-11-30 07:52] LABS: Calcium 9.2 mg/dL (8.6-10.3); Magnesium 2.3 mg/dL (1.6-2.6); Potassium 4.5 mEq/L (3.5-5.1)
[2019-11-30] MEDS: Apixaban 5 MG TABLET PO SCH (09:04)
[2019-11-30] MEDS: lisinopriL 5 MG TABLET PO SCH (09:04)
[2019-11-30] MEDS: *HR* Amiodarone 200 MG TABLET PO SCH (09:04)
[2019-11-30] MEDS: Famotidine 20 MG TABLET PO SCH (09:05)
[2019-11-30] MEDS: Isosorbide MONOnitrate (24 HR) 60 MG TAB.ER.24H PO SCH (09:05)
[2019-11-30] MEDS: allopurinoL 100 MG TABLET PO SCH (09:05)
[2019-11-30] MEDS: Metoprolol XL (24 HR) Succ 50 MG TAB.ER.24H PO SCH (09:05)
[2019-11-30] MEDS: Aspirin Enteric Coated 81 MG Tablet PO SCH (09:05)
[2019-11-30] MEDS: Insulin LISPRO 300 UNITS/3 ML VIAL SQ SCH (09:09)
[2019-11-30] MEDS ORDERED: Metoprolol XL (24 HR) Succ 25 MG TAB.ER.24H PO ONE (09:30)
[2019-11-30] MEDS ORDERED: Metoprolol XL (24 HR) Succ 50 MG TAB.ER.24H PO SCH (21:00)
== END 2019-11-30 11:20 | disposition home or self-care (01) | DRG 309 ==
LOC: 3BNU 19:39 → EMEROOARM 19:39 → SUATTDRO 22:51 → 3BNU 23:30 → SUATTDRO 11-27 14:48
PROVIDERS: ADMIT Internal Medicine; ATTEND Internal Medicine

== ENCOUNTER 2020-01-17 02:58 | Inpatient (IN) ==
[2020-01-17 04:39] LABS: Lymphocytes % 13.3 %; Mean Platelet Volume 11.5 fL (9.4-12.4)
[2020-01-17 04:41] LABS: Basophils % 0.4 %; Eosinophils # 0.1 K/mcL (0.0-0.6); Eosinophils % 1.6 %; Hematocrit 33.3 % (37.5-50.1); Hemoglobin 10.5 g/dL (12.9-16.9); Immature Granulocytes % 0.4 % (0-4); Immature Platelets 6.8 % (1.1-6.1); Lymphocytes # 0.9 K/mcL (0.6-4.6); Mean Corpuscular HGB Conc 31.5 g/dL (31.6-35.5); Mean Corpuscular Hemoglobin 30.6 pg (28.0-33.3); Mean Corpuscular Volume 97.1 fL (83.0-100.0); Monocytes # 0.8 K/mcL (0.0-1.3); Monocytes % 11.5 %; Platelet Count 123 K/mcL (140-400); Red Blood Count 3.43 M/mcL (4.19-5.50); Red Cell Distribution Width 14.8 % (11.5-14.5); Segmented Neutrophils % 72.8 %; White Blood Count 7.1 K/mcL (4.3-11.1)
[2020-01-17 04:42] LABS: INR 1.2; Prothrombin Time 13.3 Seconds (9.4-12.1)
[2020-01-17 04:45] LABS: Activated Partial Thrombo Time 28.6 Seconds (26.0-36.0)
[2020-01-17 04:54] LABS: Neutrophils # 5.2 K/mcL (1.6-8.9)
[2020-01-17 04:55] LABS: Platelet Estimate Normal (Normal)
[2020-01-17 05:02] LABS: BUN/Creatinine Ratio 23 (6-26); Blood Urea Nitrogen 29 mg/dL (8-23); Calcium 9.2 mg/dL (8.6-10.3); Carbon Dioxide 26 mEq/L (23-29); Chloride 106 mEq/L (98-107); Glucose 158 mg/dL (70-105); Osmolality,Calculated 301 (280-300); Potassium 3.3 mEq/L (3.5-5.1); Sodium 141 mEq/L (136-145); Troponin I 0.03 ng/mL (< 0.04); eGFR For African Americans > 60 (> 60); eGFR For Non-African Americans 56 (> 60)
[2020-01-17] MEDS ORDERED: Furosemide 40 MG/4 ML VIAL IVP ONE (06:42)
[2020-01-17] MEDS ORDERED: Ondansetron 4 MG/2 ML VIAL IVP PRN (07:47)
[2020-01-17] MEDS ORDERED: NON-FORMULARY MEDICATION 1 EACH EACH (Metoprolol Succinate [Toprol Xl] 100 MG) PO SCH (09:00)
[2020-01-17] MEDS ORDERED: Metoprolol 100 MG TABLET PO SCH (09:00)
[2020-01-17] MEDS ORDERED: *HR* Dextrose 50 % in Water (Vial) 50 ML VIAL IVP PRN (09:52)
[2020-01-17] MEDS ORDERED: D5% in Water 1,000 ML IVC PRN (09:52)
[2020-01-17] MEDS ORDERED: Dextrose Gel 15 GM/37.5 ML TUBE PO PRN ×2 (09:52)
[2020-01-17] MEDS: Famotidine 20 MG TABLET PO SCH (09:54)
[2020-01-17] MEDS: Apixaban 5 MG TABLET PO SCH ×2 (09:54→21:24)
[2020-01-17] MEDS: lisinopriL 5 MG TABLET PO SCH (09:54)
[2020-01-17] MEDS: Aspirin Enteric Coated 81 MG Tablet PO SCH (09:54)
[2020-01-17] MEDS: hydrALAZINE 25 MG TABLET PO SCH ×3 (09:54→21:24)
[2020-01-17] MEDS: Isosorbide MONOnitrate (24 HR) 60 MG TAB.ER.24H PO SCH (09:55)
[2020-01-17] MEDS: allopurinoL 100 MG TABLET PO SCH (09:55)
[2020-01-17] MEDS: carvediloL 25 MG TABLET PO SCH ×2 (10:54→16:17)
[2020-01-17] MEDS: Spironolactone 25 MG TABLET PO SCH (10:54)
[2020-01-17] MEDS: Insulin LISPRO 300 UNITS/3 ML VIAL SQ SCH ×3 (11:04→21:19)
[2020-01-17 14:53] LABS: BUN/Creatinine Ratio 22 (6-26); Blood Urea Nitrogen 26 mg/dL (8-23); Carbon Dioxide 27 mEq/L (23-29); Chloride 107 mEq/L (98-107); Glucose 181 mg/dL (70-105); Osmolality,Calculated 299 (280-300); Potassium 4.1 mEq/L (3.5-5.1); Sodium 140 mEq/L (136-145); eGFR For African Americans > 60 (> 60); eGFR For Non-African Americans > 60 (> 60)
[2020-01-17] MEDS: Furosemide 40 MG/4 ML VIAL IVP SCH (16:16)
[2020-01-17] MEDS: Insulin DETEMIR 100 UNIT/ML X5UNITS SQ SCH (21:24)
[2020-01-18 02:00] LABS: Hematocrit 33.7 % (37.5-50.1); Hemoglobin 10.9 g/dL (12.9-16.9); Mean Corpuscular HGB Conc 32.3 g/dL (31.6-35.5); Mean Corpuscular Hemoglobin 31.7 pg (28.0-33.3); Mean Platelet Volume 12.2 fL (9.4-12.4); Platelet Count 134 K/mcL (140-400); Red Blood Count 3.44 M/mcL (4.19-5.50); Red Cell Distribution Width 14.9 % (11.5-14.5); White Blood Count 8.7 K/mcL (4.3-11.1)
[2020-01-18] MEDS: Acetaminophen 325 MG TABLET PO PRN ×2 (02:05→22:09)
[2020-01-18 02:20] LABS: BUN/Creatinine Ratio 21 (6-26); Blood Urea Nitrogen 28 mg/dL (8-23); Calcium 9.4 mg/dL (8.6-10.3); Carbon Dioxide 31 mEq/L (23-29); Chloride 107 mEq/L (98-107); Glucose 82 mg/dL (70-105); Magnesium 2.4 mg/dL (1.6-2.6); Osmolality,Calculated 305 (280-300); Potassium 3.8 mEq/L (3.5-5.1); Sodium 145 mEq/L (136-145); eGFR For African Americans > 60 (> 60); eGFR For Non-African Americans 55 (> 60)
[2020-01-18] MEDS: Insulin LISPRO 300 UNITS/3 ML VIAL SQ SCH ×4 (09:12→22:09)
[2020-01-18] MEDS: Aspirin Enteric Coated 81 MG Tablet PO SCH (09:49)
[2020-01-18] MEDS: Spironolactone 25 MG TABLET PO SCH (09:50)
[2020-01-18] MEDS: allopurinoL 100 MG TABLET PO SCH (09:50)
[2020-01-18] MEDS: Isosorbide MONOnitrate (24 HR) 60 MG TAB.ER.24H PO SCH (09:50)
[2020-01-18] MEDS: hydrALAZINE 25 MG TABLET PO SCH ×3 (09:51→22:08)
[2020-01-18] MEDS: Apixaban 5 MG TABLET PO SCH ×2 (09:52→22:09)
[2020-01-18] MEDS: lisinopriL 5 MG TABLET PO SCH (09:52)
[2020-01-18] MEDS: Furosemide 40 MG/4 ML VIAL IVP SCH (09:53)
[2020-01-18] MEDS: carvediloL 25 MG TABLET PO SCH ×2 (09:53→16:55)
[2020-01-18] MEDS: Famotidine 20 MG TABLET PO SCH (09:55)
[2020-01-18] MEDS: Insulin DETEMIR 100 UNIT/ML X5UNITS SQ SCH (22:11)
[2020-01-19 02:44] LABS: Hematocrit 33.4 % (37.5-50.1); Hemoglobin 10.6 g/dL (12.9-16.9); Mean Corpuscular HGB Conc 31.7 g/dL (31.6-35.5); Mean Corpuscular Volume 97.7 fL (83.0-100.0); Platelet Count 135 K/mcL (140-400); Red Blood Count 3.42 M/mcL (4.19-5.50); Red Cell Distribution Width 14.8 % (11.5-14.5); White Blood Count 8.1 K/mcL (4.3-11.1)
[2020-01-19 02:59] LABS: Calcium 9.6 mg/dL (8.6-10.3); Potassium 3.6 mEq/L (3.5-5.1)
[2020-01-19] MEDS: Acetaminophen 325 MG TABLET PO PRN (07:52)
[2020-01-19] MEDS ORDERED: lisinopriL 5 MG TABLET PO SCH (09:00)
[2020-01-19] MEDS: Insulin LISPRO 300 UNITS/3 ML VIAL SQ SCH ×2 (09:09→11:26)
[2020-01-19] MEDS: carvediloL 25 MG TABLET PO SCH (09:11)
[2020-01-19] MEDS: Aspirin Enteric Coated 81 MG Tablet PO SCH (09:12)
[2020-01-19] MEDS: Apixaban 5 MG TABLET PO SCH (09:13)
[2020-01-19] MEDS: hydrALAZINE 25 MG TABLET PO SCH (09:13)
[2020-01-19] MEDS: Isosorbide MONOnitrate (24 HR) 60 MG TAB.ER.24H PO SCH (09:14)
[2020-01-19] MEDS: allopurinoL 100 MG TABLET PO SCH (09:15)
[2020-01-19] MEDS ORDERED: Famotidine 20 MG TABLET PO SCH (09:15)
[2020-01-19] MEDS: Famotidine 20 MG TABLET PO SCH (09:15)
[2020-01-19 10:27] VITALS: BP 129/66
[2020-01-19 13:45] LABS: Calcium 9.4 mg/dL (8.6-10.3); Potassium 4.1 mEq/L (3.5-5.1)
== END 2020-01-19 15:43 | disposition home or self-care (01) | DRG 291 ==
LOC: 2ANU 02:58 → EMEROOARM 02:58 → SUATTDRO 07:58 → 2ANU 08:28
PROVIDERS: ADMIT Internal Medicine; ATTEND Internal Medicine

== ENCOUNTER 2020-06-21 13:26 | Observation (INO) ==
[2020-06-21 14:41] LABS: Basophils % 0.5 %; Eosinophils # 0.1 K/mcL (0.0-0.6); Eosinophils % 1.3 %; Hematocrit 36.4 % (37.5-50.1); Hemoglobin 11.6 g/dL (12.9-16.9); Immature Granulocytes % 0.4 % (0-4); Immature Platelets 5.2 % (1.1-6.1); Lymphocytes # 0.9 K/mcL (0.6-4.6); Lymphocytes % 11.6 %; Mean Corpuscular HGB Conc 31.9 g/dL (31.6-35.5); Mean Corpuscular Volume 100.3 fL (83.0-100.0); Mean Platelet Volume 11.1 fL (9.4-12.4); Monocytes # 0.9 K/mcL (0.0-1.3); Monocytes % 10.9 %; Platelet Count 133 K/mcL (140-400); Red Blood Count 3.63 M/mcL (4.19-5.50); Segmented Neutrophils % 75.3 %
[2020-06-21] MEDS ORDERED: Furosemide 40 MG in 0.9 % Sodium Chloride 50 ML IV ONE (15:08)
[2020-06-21 15:09] LABS: BUN/Creatinine Ratio 18 (6-26); Blood Urea Nitrogen 20 mg/dL (8-23); Calcium 9.3 mg/dL (8.6-10.3); Carbon Dioxide 23 mEq/L (23-29); Chloride 112 mEq/L (98-107); Glucose 70 mg/dL (70-105); Osmolality,Calculated 293 (280-300); Potassium 4.3 mEq/L (3.5-5.1); Sodium 141 mEq/L (136-145); Troponin I < 0.03 ng/mL (< 0.04); eGFR For African Americans > 60 (> 60); eGFR For Non-African Americans > 60 (> 60)
[2020-06-21] MEDS ORDERED: Furosemide 40 MG/4 ML VIAL IVP ONE (15:09)
[2020-06-21] MEDS ORDERED: *HR* HYDROcodone/Acet 5/325 mg TABLET PO PRN (16:50)
[2020-06-21] MEDS ORDERED: Naloxone 0.4 MG/ML INJ IVP PRN (16:50)
[2020-06-21] MEDS ORDERED: Ondansetron 4 MG/2 ML VIAL IVP PRN (16:50)
[2020-06-21] MEDS ORDERED: *HR* Dextrose 50 % in Water (Vial) 50 ML VIAL IVP PRN (16:57)
[2020-06-21] MEDS ORDERED: D5% in Water 1,000 ML IVC PRN (16:57)
[2020-06-21] MEDS ORDERED: Dextrose Gel 15 GM/37.5 ML TUBE PO PRN ×2 (16:57)
[2020-06-21] MEDS: Apixaban 5 MG TABLET PO SCH (20:55)
[2020-06-21] MEDS: carvediloL 25 MG TABLET PO SCH (20:55)
[2020-06-21] MEDS: hydrALAZINE 25 MG TABLET PO SCH (20:55)
[2020-06-21] MEDS: Furosemide 40 MG/4 ML VIAL IVP SCH (20:56)
[2020-06-21] MEDS ORDERED: Insulin DETEMIR 100 UNIT/ML X5UNITS SUBQ SCH (21:00)
[2020-06-22 02:20] LABS: BUN/Creatinine Ratio 17 (6-26); Blood Urea Nitrogen 22 mg/dL (8-23); Calcium 9.3 mg/dL (8.6-10.3); Carbon Dioxide 27 mEq/L (23-29); Chloride 107 mEq/L (98-107); Chol/HDL Ratio 3.3 (0-4.9); Cholesterol 69 mg/dL (< 200); Glucose 57 mg/dL (70-105); HDL Cholesterol 21 mg/dL (40-59); LDL Cholesterol,Calculated 31 mg/dL (< 100); Magnesium 2.1 mg/dL (1.6-2.6); Osmolality,Calculated 295 (280-300); Potassium 3.8 mEq/L (3.5-5.1); Sodium 142 mEq/L (136-145); Triglycerides 83 mg/dL (< 150); eGFR For African Americans > 60 (> 60); eGFR For Non-African Americans 54 (> 60)
[2020-06-22] MEDS ORDERED: Cyanocobalamin (B-12) 1,000 MCG TABLET PO SCH (09:00)
[2020-06-22] MEDS ORDERED: Isosorbide MONOnitrate (24 HR) 60 MG TAB.ER.24H PO SCH (09:00)
[2020-06-22] MEDS ORDERED: allopurinoL 100 MG TABLET PO SCH (09:00)
[2020-06-22] MEDS ORDERED: Aspirin Enteric Coated 81 MG Tablet PO SCH (09:00)
[2020-06-22] MEDS: Insulin LISPRO 300 UNITS/3 ML VIAL SUBQ SCH ×2 (09:15→11:58)
[2020-06-22] MEDS: carvediloL 25 MG TABLET PO SCH (09:20)
[2020-06-22] MEDS: hydrALAZINE 25 MG TABLET PO SCH (09:20)
[2020-06-22] MEDS: Apixaban 5 MG TABLET PO SCH (09:20)
[2020-06-22] MEDS: Furosemide 40 MG/4 ML VIAL IVP SCH (09:20)
[2020-06-22 10:24] VITALS: BP 119/81
== END 2020-06-22 14:22 | disposition home or self-care (01) ==
LOC: EMEROOARM 13:26 → 3ANU 13:26 → SUATTDRO 16:48 → 3ANU 17:31
PROVIDERS: ADMIT Internal Medicine; ATTEND Internal Medicine

== ENCOUNTER 2020-10-25 01:14 | Observation (INO) ==
[2020-10-25] MEDS ORDERED: 0.9 % Sodium Chloride 1,000 ML IVC ONE (01:44)
[2020-10-25 01:59] LABS: Hemoglobin 11.8 g/dL (12.9-16.9); Mean Corpuscular Volume 94.9 fL (83.0-100.0); Red Cell Distribution Width 14.1 % (11.5-14.5)
[2020-10-25 02:01] LABS: Basophils % 0.2 %; Eosinophils % 0.2 %; Hematocrit 35.6 % (37.5-50.1); Immature Granulocytes % 0.5 % (0-4); Immature Platelets 5.6 % (1.1-6.1); Lymphocytes # 0.5 K/mcL (0.6-4.6); Lymphocytes % 11.8 %; Mean Corpuscular HGB Conc 33.1 g/dL (31.6-35.5); Mean Corpuscular Hemoglobin 31.5 pg (28.0-33.3); Mean Platelet Volume 12.1 fL (9.4-12.4); Monocytes # 0.3 K/mcL (0.0-1.3); Monocytes % 7.6 %; Neutrophils # 3.3 K/mcL (1.6-8.9); Platelet Count 83 K/mcL (140-400); Red Blood Count 3.75 M/mcL (4.19-5.50); Segmented Neutrophils % 79.7 %; White Blood Count 4.1 K/mcL (4.3-11.1)
[2020-10-25 02:25] LABS: Alanine Aminotransferase 21 Units/L (7-52); Albumin 3.5 g/dL (3.5-5.7); Albumin/Globulin Ratio 1.1 (1.1-2.2); Alkaline Phosphatase 83 Units/L (34-104); Aspartate Amino Transferase 31 Units/L (13-39); BUN/Creatinine Ratio 27 (6-26); Bilirubin,Direct 0.1 mg/dL (0.0-0.2); Bilirubin,Indirect 0.5 mg/dL (0.0-1.0); Bilirubin,Total 0.6 mg/dL (0.3-1.0); Blood Urea Nitrogen 37 mg/dL (8-23); Calcium 8.3 mg/dL (8.6-10.3); Carbon Dioxide 22 mEq/L (23-29); Chloride 106 mEq/L (98-107); Globulin 3.1 g/dL (2.4-3.5); Glucose 120 mg/dL (70-105); Osmolality,Calculated 296 (280-300); Potassium 4.2 mEq/L (3.5-5.1); Sodium 138 mEq/L (136-145); Total Protein 6.6 g/dL (6.4-8.9); Troponin I 0.04 ng/mL (< 0.04); eGFR For African Americans > 60 (> 60); eGFR For Non-African Americans 51 (> 60)
[2020-10-25 02:58] LABS: Adenovirus Not Detected (Not Detect); Coronavirus 229E Not Detected (Not Detect); Coronavirus HKU1 Not Detected (Not Detect); Coronavirus NL63 Not Detected (Not Detect); Coronavirus OC43 Not Detected (Not Detect)
[2020-10-25 02:59] LABS: Human Metapneumovirus Not Detected (Not Detect); Human Rhinovirus/Enterovirus Not Detected (Not Detect); Influenza A Subtype 2009 H1 Not Detected (Not Detect); SARS-CoV-2 DETECTED (Not Detect)
[2020-10-25 03:00] LABS: Bordetella Pertussis Not Detected (Not Detect); Chlamydophila pneumoniae Not Detected (Not Detect); Influenza B Not Detected (Not Detect); Mycoplasma pneumoniae Not Detected (Not Detect); Parainfluenza Virus 1 Not Detected (Not Detect); Parainfluenza Virus 2 Not Detected (Not Detect); Parainfluenza Virus 3 Not Detected (Not Detect); Parainfluenza Virus 4 Not Detected (Not Detect); Respiratory Syncytial Virus Not Detected (Not Detect)
[2020-10-25] MEDS ORDERED: *HR* Heparin 5,000 UNIT/ML VIAL IVP PRN ×2 (03:24)
[2020-10-25 03:27] LABS: Bilirubin,Urine Negative (Negative); Blood,Urine Negative (Negative); Clarity,Urine Clear (Clear); Color,Urine Light-Yellow (Yellow); Glucose,Urine (UA) Normal (Normal); Ketones,Urine Negative (Negative); Leukocyte Esterase,Urine Negative (Negative); Nitrite,Urine Negative (Negative); Protein,Urine 70 mg/dL (Neg-Trace); RBC,Urine 0-3 per hpf (0-3); Squamous Epithelial Cell,Urine Few per hpf (None-Few); Urobilinogen,Urine Normal (Normal); WBC,Urine 0-3 per hpf (0-3)
[2020-10-25] MEDS ORDERED: Heparin 25,000UNIT/250ML 1/2NS 25,000 UNIT/250 ML IV.SOLN IVC SCH (03:30)
[2020-10-25] MEDS ORDERED: Piperacillin/Tazobactam 3.375 GM in Water for inj. (sterile) 20 ML IVP ONE (04:04)
[2020-10-25 04:30] LABS: Hemoglobin 11.1 g/dL (12.9-16.9); Immature Platelets 5.1 % (1.1-6.1); Mean Corpuscular HGB Conc 33.6 g/dL (31.6-35.5); Mean Corpuscular Hemoglobin 31.8 pg (28.0-33.3); Mean Corpuscular Volume 94.6 fL (83.0-100.0); Mean Platelet Volume 11.7 fL (9.4-12.4); Red Blood Count 3.49 M/mcL (4.19-5.50); Red Cell Distribution Width 14.2 % (11.5-14.5)
[2020-10-25 04:36] LABS: Heparin anti-factor XA UFH 0.07 IU/mL (0.30-0.70)
[2020-10-25 04:37] LABS: INR 1.1
[2020-10-25] MEDS ORDERED: Vancomycin 1,500 MG/265 ML IV.SOLN IVPB ONE (05:00)
[2020-10-25] MEDS ORDERED: Ondansetron 4 MG/2 ML VIAL IVP PRN (07:06)
[2020-10-25] MEDS ORDERED: Naloxone 0.4 MG/ML INJ IVP PRN (07:06)
[2020-10-25] MEDS ORDERED: Melatonin 3 MG TABLET PO PRN (07:06)
[2020-10-25] MEDS ORDERED: Dextrose Gel 15 GM/37.5 ML TUBE PO PRN ×2 (07:15)
[2020-10-25] MEDS ORDERED: D5% in Water 1,000 ML IVC PRN (07:15)
[2020-10-25] MEDS ORDERED: *HR* Dextrose 50 % in Water (Vial) 50 ML VIAL IVP PRN (07:15)
[2020-10-25 10:37] LABS: Heparin anti-factor XA UFH 0.52 IU/mL (0.30-0.70)
[2020-10-25] MEDS: Insulin LISPRO 300 UNITS/3 ML VIAL SUBQ SCH ×4 (12:08→21:10)
[2020-10-25] MEDS: Acetaminophen 325 MG TABLET PO PRN (16:48)
[2020-10-25] MEDS ORDERED: *HR* Labetalol 20 MG/4 ML SYRINGE IVP PRN (23:50)
[2020-10-26] MEDS: Acetaminophen 325 MG TABLET PO PRN ×3 (00:02→20:20)
[2020-10-26] MEDS: Insulin LISPRO 300 UNITS/3 ML VIAL SUBQ SCH ×5 (08:15→20:22)
[2020-10-26] MEDS: carvediloL 6.25 MG TABLET PO SCH (16:56)
[2020-10-26] MEDS: Furosemide 40 MG TABLET PO SCH (16:56)
[2020-10-26] MEDS: hydrALAZINE 25 MG TABLET PO SCH (20:21)
[2020-10-27] MEDS: Acetaminophen 325 MG TABLET PO PRN ×2 (05:16→14:15)
[2020-10-27] MEDS ORDERED: Acetaminophen IV 500 MG/50 ML BAG IVPB ONE (06:49)
[2020-10-27] MEDS: Insulin LISPRO 300 UNITS/3 ML VIAL SUBQ SCH ×3 (07:45→17:34)
[2020-10-27] MEDS: hydrALAZINE 25 MG TABLET PO SCH (07:46)
[2020-10-27] MEDS: carvediloL 6.25 MG TABLET PO SCH ×2 (07:47→17:34)
[2020-10-27] MEDS: Furosemide 40 MG TABLET PO SCH ×2 (07:47→17:34)
[2020-10-27 08:24] LABS: Basophils % 0.2 %; Hematocrit 33.4 % (37.5-50.1); Hemoglobin 11.4 g/dL (12.9-16.9); Immature Granulocytes % 0.4 % (0-4); Mean Corpuscular HGB Conc 34.1 g/dL (31.6-35.5); Mean Corpuscular Hemoglobin 31.9 pg (28.0-33.3); Mean Corpuscular Volume 93.6 fL (83.0-100.0); Mean Platelet Volume 11.7 fL (9.4-12.4); Monocytes % 4.2 %; Red Blood Count 3.57 M/mcL (4.19-5.50); Red Cell Distribution Width 13.9 % (11.5-14.5)
[2020-10-27 08:26] LABS: Immature Platelets 5.8 % (1.1-6.1); Lymphocytes # 0.4 K/mcL (0.6-4.6); Lymphocytes % 8.6 %; Monocytes # 0.2 K/mcL (0.0-1.3); Neutrophils # 3.9 K/mcL (1.6-8.9); Segmented Neutrophils % 86.6 %; White Blood Count 4.5 K/mcL (4.3-11.1)
[2020-10-27 08:30] LABS: Platelet Count 90 K/mcL (140-400)
[2020-10-27 08:43] LABS: BUN/Creatinine Ratio 19 (6-26); Blood Urea Nitrogen 23 mg/dL (8-23); Carbon Dioxide 23 mEq/L (23-29); Chloride 102 mEq/L (98-107); Glucose 188 mg/dL (70-105); Osmolality,Calculated 283 (280-300); Potassium 4.2 mEq/L (3.5-5.1); Sodium 132 mEq/L (136-145); eGFR For African Americans > 60 (> 60); eGFR For Non-African Americans > 60 (> 60)
[2020-10-27] MEDS ORDERED: Spironolactone 25 MG TABLET PO SCH (09:00)
[2020-10-27] MEDS ORDERED: Isosorbide MONOnitrate (24 HR) 60 MG TAB.ER.24H PO SCH (09:00)
[2020-10-27] MEDS ORDERED: allopurinoL 100 MG TABLET PO SCH (09:00)
[2020-10-27] MEDS ORDERED: Aspirin Enteric Coated 81 MG Tablet PO SCH (09:00)
[2020-10-27] MEDS ORDERED: lisinopriL 20 MG TABLET PO SCH (09:00)
[2020-10-27] MEDS ORDERED: Cyanocobalamin (B-12) 1,000 MCG TABLET PO SCH (09:00)
[2020-10-27] MEDS ORDERED: Famotidine 20 MG TABLET PO SCH (09:00)
[2020-10-27 09:41] LABS: C-Reactive Protein 76 mg/L (Less than 10)
[2020-10-27] MEDS ORDERED: Ibuprofen 400 MG TABLET PO ONE (13:49)
[2020-10-27 15:13] VITALS: BP 101/64; PULSE 81; TEMP 99.7; O2SAT 92
== END 2020-10-27 18:01 | disposition home health service (06) ==
LOC: 2ANU 01:14 → EMEROOARM 01:14 → 2ANU 11:21
PROVIDERS: ADMIT Family Medicine; ATTEND Family Medicine

== ENCOUNTER 2020-11-01 13:53 | Inpatient (IN) ==
[2020-11-01 14:28] LABS: Hematocrit 32.6 % (37.5-50.1); Hemoglobin 11.5 g/dL (12.9-16.9); Mean Corpuscular HGB Conc 35.3 g/dL (31.6-35.5); Mean Corpuscular Hemoglobin 32.1 pg (28.0-33.3); Mean Corpuscular Volume 91.1 fL (83.0-100.0); Mean Platelet Volume 12.5 fL (9.4-12.4); Monocytes # 0.8 K/mcL (0.0-1.3); Platelet Count 160 K/mcL (140-400); Red Blood Count 3.58 M/mcL (4.19-5.50); Red Cell Distribution Width 14.3 % (11.5-14.5)
[2020-11-01 14:32] LABS: White Blood Count 15.5 K/mcL (4.3-11.1)
[2020-11-01 15:05] LABS: Lymphocytes # 0.3 K/mcL (0.6-4.6); Neutrophils # 14.1 K/mcL (1.6-8.9)
[2020-11-01 15:06] LABS: Platelet Estimate Normal (Normal)
[2020-11-01] MEDS ORDERED: Isovue-370 500 ML BOTTLE IVP ONE (15:13)
[2020-11-01 15:24] LABS: BUN/Creatinine Ratio 38 (6-26); Blood Urea Nitrogen 47 mg/dL (8-23); Calcium 8.7 mg/dL (8.6-10.3); Carbon Dioxide 21 mEq/L (23-29); Chloride 104 mEq/L (98-107); Glucose 316 mg/dL (70-105); Osmolality,Calculated 300 (280-300); Potassium 5.2 mEq/L (3.5-5.1); Sodium 133 mEq/L (136-145); Troponin I 0.03 ng/mL (< 0.04); eGFR For African Americans > 60 (> 60); eGFR For Non-African Americans 58 (> 60)
[2020-11-01] MEDS ORDERED: cefTRIAXone 1,000 MG in 0.9 % Sodium Chloride Mini Bag 100 ML IVPB ONE (16:42)
[2020-11-01] MEDS ORDERED: Azithromycin 250 MG TABLET PO ONE (16:42)
[2020-11-01] MEDS ORDERED: Naloxone 0.4 MG/ML INJ IVP PRN (17:05)
[2020-11-01] MEDS ORDERED: Ondansetron 4 MG/2 ML VIAL IVP PRN (17:05)
[2020-11-01] MEDS ORDERED: Acetaminophen 325 MG TABLET PO PRN (17:08)
[2020-11-01 17:22] LABS: Alanine Aminotransferase 35 Units/L (7-52); Albumin 3.2 g/dL (3.5-5.7); Alkaline Phosphatase 70 Units/L (34-104); Aspartate Amino Transferase 39 Units/L (13-39); Bilirubin,Direct 0.2 mg/dL (0.0-0.2); Bilirubin,Indirect 1.4 mg/dL (0.0-1.0); Bilirubin,Total 1.6 mg/dL (0.3-1.0); C-Reactive Protein 281 mg/L (Less than 10); Globulin 3.3 g/dL (2.4-3.5); Total Protein 6.5 g/dL (6.4-8.9)
[2020-11-01 18:05] LABS: INR 1.2; Prothrombin Time 14.3 Seconds (9.4-12.1)
[2020-11-01] MEDS ORDERED: *HR* Dextrose 50 % in Water (Vial) 50 ML VIAL IVP PRN (18:07)
[2020-11-01] MEDS ORDERED: D5% in Water 1,000 ML IVC PRN (18:07)
[2020-11-01] MEDS ORDERED: Dextrose Gel 15 GM/37.5 ML TUBE PO PRN ×2 (18:07)
[2020-11-01] MEDS ORDERED: Azithromycin 500 MG in 0.9 % Sodium Chloride 250 ML IVPB SCH (19:00)
[2020-11-01 20:05] LABS: ABG Base Excess -2 mEq/L (-2 to 3); ABG HCO3 22 mEq/L (21-27); ABG Oxygen Saturation 91 % (95-98); ABG PCO2 35 mmHg (35-45); ABG PH 7.41 pH Units (7.32-7.45); ABG PO2 59 mmHg (85-104); ABG TCO2 24 mEq/L (20-26)
[2020-11-01] MEDS: Ipratropium 1 PUFF INHALER IH SCH (20:09)
[2020-11-01] MEDS ORDERED: Insulin DETEMIR 100 UNIT/ML X5UNITS SUBQ SCH (21:00)
[2020-11-01] MEDS ORDERED: Insulin LISPRO 300 UNITS/3 ML VIAL SUBQ SCH (21:00)
[2020-11-01] MEDS: Apixaban 5 MG TABLET PO SCH (21:17)
[2020-11-01] MEDS: cefTRIAXone 1,000 MG in 0.9 % Sodium Chloride Mini Bag 100 ML IVPB SCH (21:19)
[2020-11-01] MEDS: carvediloL 25 MG TABLET PO SCH (21:22)
[2020-11-02] MEDS: Ipratropium 1 PUFF INHALER IH SCH ×6 (00:17→20:27)
[2020-11-02 02:24] LABS: Hematocrit 30.2 % (37.5-50.1); Hemoglobin 10.6 g/dL (12.9-16.9); Mean Corpuscular HGB Conc 35.1 g/dL (31.6-35.5); Mean Corpuscular Hemoglobin 32.2 pg (28.0-33.3); Mean Corpuscular Volume 91.8 fL (83.0-100.0); Mean Platelet Volume 12.3 fL (9.4-12.4); Platelet Count 150 K/mcL (140-400); Red Blood Count 3.29 M/mcL (4.19-5.50); Red Cell Distribution Width 14.5 % (11.5-14.5); White Blood Count 11.6 K/mcL (4.3-11.1)
[2020-11-02 02:55] LABS: Alanine Aminotransferase 31 Units/L (7-52); Albumin 2.8 g/dL (3.5-5.7); Albumin/Globulin Ratio 0.9 (1.1-2.2); Alkaline Phosphatase 63 Units/L (34-104); Aspartate Amino Transferase 30 Units/L (13-39); BUN/Creatinine Ratio 41 (6-26); Bilirubin,Total 1.7 mg/dL (0.3-1.0); Blood Urea Nitrogen 43 mg/dL (8-23); C-Reactive Protein 299 mg/L (Less than 10); Calcium 8.8 mg/dL (8.6-10.3); Carbon Dioxide 21 mEq/L (23-29); Chloride 104 mEq/L (98-107); Ferritin > 1500 ng/mL (20-250); Globulin 3.1 g/dL (2.4-3.5); Glucose 374 mg/dL (70-105); Lactate Dehydrogenase 287 Units/L (140-271); Osmolality,Calculated 302 (280-300); Potassium 4.9 mEq/L (3.5-5.1); Sodium 133 mEq/L (136-145); Total Protein 5.9 g/dL (6.4-8.9); eGFR For African Americans > 60 (> 60); eGFR For Non-African Americans > 60 (> 60)
[2020-11-02 03:13] LABS: Anisocytosis 1+ (Not Present); Lymphocytes # 0.7 K/mcL (0.6-4.6); Monocytes # 0.2 K/mcL (0.0-1.3); Neutrophils # 10.4 K/mcL (1.6-8.9); Platelet Estimate Normal (Normal)
[2020-11-02] MEDS ORDERED: Insulin LISPRO 300 UNITS/3 ML VIAL SUBQ SCH (07:30)
[2020-11-02] MEDS ORDERED: Insulin LISPRO 300 UNITS/3 ML VIAL SUBQ ONE (07:50)
[2020-11-02] MEDS: Apixaban 5 MG TABLET PO SCH ×2 (08:10→20:26)
[2020-11-02] MEDS: Famotidine 20 MG TABLET PO SCH (08:10)
[2020-11-02] MEDS: Aspirin Enteric Coated 81 MG Tablet PO SCH (08:10)
[2020-11-02] MEDS: Furosemide 40 MG TABLET PO SCH (08:10)
[2020-11-02] MEDS: carvediloL 25 MG TABLET PO SCH ×2 (08:11→17:47)
[2020-11-02] MEDS: Isosorbide MONOnitrate (24 HR) 60 MG TAB.ER.24H PO SCH (08:11)
[2020-11-02] MEDS: lisinopriL 20 MG TABLET PO SCH (08:11)
[2020-11-02] MEDS: Cyanocobalamin (B-12) 1,000 MCG TABLET PO SCH (08:11)
[2020-11-02] MEDS: allopurinoL 100 MG TABLET PO SCH (08:11)
[2020-11-02] MEDS: Insulin DETEMIR 100 UNIT/ML X5UNITS SUBQ SCH ×2 (08:24→20:43)
[2020-11-02] MEDS: Insulin LISPRO 300 UNITS/3 ML VIAL SUBQ SCH ×3 (11:14→20:46)
[2020-11-02] MEDS: Azithromycin 250 MG TABLET PO SCH (14:33)
[2020-11-02] MEDS: cefTRIAXone 1,000 MG in 0.9 % Sodium Chloride Mini Bag 100 ML IVPB SCH (17:47)
[2020-11-03] MEDS: Ipratropium 1 PUFF INHALER IH SCH ×7 (00:20→23:40)
[2020-11-03] MEDS: Isosorbide MONOnitrate (24 HR) 60 MG TAB.ER.24H PO SCH (08:08)
[2020-11-03] MEDS: lisinopriL 20 MG TABLET PO SCH (08:08)
[2020-11-03] MEDS: Famotidine 20 MG TABLET PO SCH (08:08)
[2020-11-03] MEDS: Azithromycin 250 MG TABLET PO SCH (08:09)
[2020-11-03] MEDS: Cyanocobalamin (B-12) 1,000 MCG TABLET PO SCH (08:09)
[2020-11-03] MEDS: carvediloL 25 MG TABLET PO SCH ×2 (08:09→17:13)
[2020-11-03] MEDS: Spironolactone 25 MG TABLET PO SCH (08:10)
[2020-11-03] MEDS: Aspirin Enteric Coated 81 MG Tablet PO SCH (08:10)
[2020-11-03] MEDS: Apixaban 5 MG TABLET PO SCH ×2 (08:10→20:48)
[2020-11-03] MEDS: allopurinoL 100 MG TABLET PO SCH (08:10)
[2020-11-03] MEDS: Insulin LISPRO 300 UNITS/3 ML VIAL SUBQ SCH ×4 (08:10→20:49)
[2020-11-03] MEDS: Furosemide 40 MG TABLET PO SCH (08:10)
[2020-11-03] MEDS: Insulin DETEMIR 100 UNIT/ML X5UNITS SUBQ SCH ×2 (09:36→20:48)
[2020-11-03] MEDS: Piperacillin/Tazobactam 3.375 GM in 0.9 % Sodium Chloride Mini Bag 100 ML IVPB SCH ×2 (09:36→17:13)
[2020-11-03 12:18] LABS: Hematocrit 29.1 % (37.5-50.1); Mean Corpuscular HGB Conc 34.4 g/dL (31.6-35.5); Mean Corpuscular Hemoglobin 31.9 pg (28.0-33.3); Mean Platelet Volume 12.1 fL (9.4-12.4); Nucleated Red Blood Cells 0.6 /100 WBC (0); Platelet Count 225 K/mcL (140-400); Red Blood Count 3.13 M/mcL (4.19-5.50); Red Cell Distribution Width 14.6 % (11.5-14.5); White Blood Count 12.7 K/mcL (4.3-11.1)
[2020-11-03 13:14] LABS: Alanine Aminotransferase 76 Units/L (7-52); Albumin 2.8 g/dL (3.5-5.7); Albumin/Globulin Ratio 0.9 (1.1-2.2); Alkaline Phosphatase 69 Units/L (34-104); Aspartate Amino Transferase 125 Units/L (13-39); BUN/Creatinine Ratio 36 (6-26); Bilirubin,Total 1.6 mg/dL (0.3-1.0); Blood Urea Nitrogen 41 mg/dL (8-23); Carbon Dioxide 22 mEq/L (23-29); Chloride 103 mEq/L (98-107); Glucose 115 mg/dL (70-105); Osmolality,Calculated 289 (280-300); Potassium 4.7 mEq/L (3.5-5.1); Sodium 134 mEq/L (136-145); Total Protein 5.8 g/dL (6.4-8.9); eGFR For African Americans > 60 (> 60); eGFR For Non-African Americans > 60 (> 60)
[2020-11-03 16:32] LABS: Anisocytosis 1+ (Not Present); Lymphocytes # 0.8 K/mcL (0.6-4.6); Monocytes # 0.3 K/mcL (0.0-1.3); Neutrophils # 11.7 K/mcL (1.6-8.9); Platelet Estimate Normal (Normal)
[2020-11-03 16:33] LABS: Polychromasia 1+ (Not Present); Toxic Granulation Present (Not Present)
[2020-11-04] MEDS: Piperacillin/Tazobactam 3.375 GM in 0.9 % Sodium Chloride Mini Bag 100 ML IVPB SCH ×3 (00:28→17:29)
[2020-11-04] MEDS: Ipratropium 1 PUFF INHALER IH SCH ×6 (03:53→23:41)
[2020-11-04 06:54] LABS: Hematocrit 28.5 % (37.5-50.1); Hemoglobin 9.8 g/dL (12.9-16.9); Mean Corpuscular HGB Conc 34.4 g/dL (31.6-35.5); Mean Corpuscular Volume 93.1 fL (83.0-100.0); Mean Platelet Volume 12.3 fL (9.4-12.4); Platelet Count 233 K/mcL (140-400); Red Blood Count 3.06 M/mcL (4.19-5.50); Red Cell Distribution Width 14.5 % (11.5-14.5); White Blood Count 11.2 K/mcL (4.3-11.1)
[2020-11-04 07:05] LABS: Alanine Aminotransferase 89 Units/L (7-52); Albumin 2.7 g/dL (3.5-5.7); Albumin/Globulin Ratio 0.8 (1.1-2.2); Alkaline Phosphatase 71 Units/L (34-104); Aspartate Amino Transferase 88 Units/L (13-39); BUN/Creatinine Ratio 40 (6-26); Bilirubin,Total 1.6 mg/dL (0.3-1.0); Blood Urea Nitrogen 39 mg/dL (8-23); Calcium 8.8 mg/dL (8.6-10.3); Carbon Dioxide 25 mEq/L (23-29); Chloride 103 mEq/L (98-107); Globulin 3.2 g/dL (2.4-3.5); Glucose 179 mg/dL (70-105); Osmolality,Calculated 294 (280-300); Potassium 4.8 mEq/L (3.5-5.1); Sodium 135 mEq/L (136-145); Total Protein 5.9 g/dL (6.4-8.9); eGFR For African Americans > 60 (> 60); eGFR For Non-African Americans > 60 (> 60)
[2020-11-04 07:19] LABS: Ferritin > 1500 ng/mL (20-250)
[2020-11-04 08:23] LABS: Lymphocytes # 0.6 K/mcL (0.6-4.6); Monocytes # 0.7 K/mcL (0.0-1.3); Platelet Estimate Normal (Normal); Toxic Granulation Present (Not Present)
[2020-11-04] MEDS: Insulin LISPRO 300 UNITS/3 ML VIAL SUBQ SCH ×5 (10:11→20:46)
[2020-11-04] MEDS: carvediloL 25 MG TABLET PO SCH ×2 (10:12→17:29)
[2020-11-04] MEDS: Spironolactone 25 MG TABLET PO SCH (10:13)
[2020-11-04] MEDS: Aspirin Enteric Coated 81 MG Tablet PO SCH (10:13)
[2020-11-04] MEDS: Furosemide 40 MG TABLET PO SCH (10:14)
[2020-11-04] MEDS: Isosorbide MONOnitrate (24 HR) 60 MG TAB.ER.24H PO SCH (10:14)
[2020-11-04] MEDS: Apixaban 5 MG TABLET PO SCH ×2 (10:14→20:44)
[2020-11-04] MEDS: Insulin DETEMIR 100 UNIT/ML X5UNITS SUBQ SCH ×2 (10:15→20:45)
[2020-11-04] MEDS: lisinopriL 20 MG TABLET PO SCH (10:15)
[2020-11-04] MEDS: Cyanocobalamin (B-12) 1,000 MCG TABLET PO SCH (10:15)
[2020-11-04] MEDS: Famotidine 20 MG TABLET PO SCH (10:15)
[2020-11-04] MEDS: Azithromycin 250 MG TABLET PO SCH (10:16)
[2020-11-04] MEDS: allopurinoL 100 MG TABLET PO SCH (10:17)
[2020-11-04 23:30] LABS: Acinetobacter baumannii by PCR Not Detected (Not Detect); Candida albicans by PCR Not Detected (Not Detect); Candida glabrata by PCR Not Detected (Not Detect); Candida krusei by PCR Not Detected (Not Detect); Candida parapsilosis by PCR Not Detected (Not Detect); Candida tropicalis by PCR Not Detected (Not Detect); Enterobacter cloacae Cmplx PCR Not Detected (Not Detect); Enterobacteriaceae by PCR Not Detected (Not Detect); Enterococcus by PCR Not Detected (Not Detect); Escherichia coli by PCR Not Detected (Not Detect); Klebsiella oxytoca by PCR Not Detected (Not Detect); Klebsiella pneumoniae by PCR Not Detected (Not Detect); Proteus by PCR Not Detected (Not Detect); Pseudomonas aeruginosa by PCR Not Detected (Not Detect); Serratia marcescens by PCR Not Detected (Not Detect); Staphylococcus aureus by PCR Not Detected (Not Detect); Staphylococcus by PCR Not Detected (Not Detect); Streptococcus agalactiae(B)PCR Not Detected (Not Detect); Streptococcus by PCR Not Detected (Not Detect); Streptococcus pneumoniae PCR Not Detected (Not Detect); Streptococcus pyogenes (A) PCR Not Detected (Not Detect)
[2020-11-05] MEDS: Piperacillin/Tazobactam 3.375 GM in 0.9 % Sodium Chloride Mini Bag 100 ML IVPB SCH ×4 (00:51→23:43)
[2020-11-05] MEDS: Ipratropium 1 PUFF INHALER IH SCH ×5 (04:20→20:08)
[2020-11-05] MEDS: Azithromycin 250 MG TABLET PO SCH (08:21)
[2020-11-05] MEDS: Furosemide 40 MG TABLET PO SCH (08:21)
[2020-11-05] MEDS: Famotidine 20 MG TABLET PO SCH (08:21)
[2020-11-05] MEDS: Cyanocobalamin (B-12) 1,000 MCG TABLET PO SCH (08:21)
[2020-11-05] MEDS: Insulin LISPRO 300 UNITS/3 ML VIAL SUBQ SCH ×7 (08:22→20:28)
[2020-11-05] MEDS: carvediloL 25 MG TABLET PO SCH ×2 (08:22→17:22)
[2020-11-05] MEDS: allopurinoL 100 MG TABLET PO SCH (08:23)
[2020-11-05] MEDS: Spironolactone 25 MG TABLET PO SCH (08:23)
[2020-11-05] MEDS: Aspirin Enteric Coated 81 MG Tablet PO SCH (08:23)
[2020-11-05] MEDS: lisinopriL 20 MG TABLET PO SCH (08:23)
[2020-11-05] MEDS: Isosorbide MONOnitrate (24 HR) 60 MG TAB.ER.24H PO SCH (08:23)
[2020-11-05] MEDS: Apixaban 5 MG TABLET PO SCH ×2 (08:23→20:28)
[2020-11-05] MEDS: Insulin DETEMIR 100 UNIT/ML X5UNITS SUBQ SCH ×2 (08:26→20:27)
[2020-11-06] MEDS: Ipratropium 1 PUFF INHALER IH SCH ×7 (00:30→23:21)
[2020-11-06] MEDS: Piperacillin/Tazobactam 3.375 GM in 0.9 % Sodium Chloride Mini Bag 100 ML IVPB SCH ×2 (07:49→17:00)
[2020-11-06] MEDS: Insulin DETEMIR 100 UNIT/ML X5UNITS SUBQ SCH ×2 (07:49→21:36)
[2020-11-06] MEDS: Cyanocobalamin (B-12) 1,000 MCG TABLET PO SCH (07:52)
[2020-11-06] MEDS: Isosorbide MONOnitrate (24 HR) 60 MG TAB.ER.24H PO SCH (07:52)
[2020-11-06] MEDS: Spironolactone 25 MG TABLET PO SCH (07:52)
[2020-11-06] MEDS: Apixaban 5 MG TABLET PO SCH ×2 (07:52→21:36)
[2020-11-06] MEDS: Aspirin Enteric Coated 81 MG Tablet PO SCH (07:52)
[2020-11-06] MEDS: Famotidine 20 MG TABLET PO SCH (07:52)
[2020-11-06] MEDS: Furosemide 40 MG TABLET PO SCH (07:52)
[2020-11-06] MEDS: lisinopriL 20 MG TABLET PO SCH (07:52)
[2020-11-06] MEDS: carvediloL 25 MG TABLET PO SCH ×2 (07:52→16:59)
[2020-11-06] MEDS: allopurinoL 100 MG TABLET PO SCH (07:52)
[2020-11-06] MEDS: Insulin LISPRO 300 UNITS/3 ML VIAL SUBQ SCH ×7 (07:53→21:36)
[2020-11-07] MEDS: Piperacillin/Tazobactam 3.375 GM in 0.9 % Sodium Chloride Mini Bag 100 ML IVPB SCH ×3 (00:13→17:33)
[2020-11-07] MEDS: Ipratropium 1 PUFF INHALER IH SCH ×5 (04:19→20:03)
[2020-11-07 05:59] LABS: Hematocrit 27.9 % (37.5-50.1); Hemoglobin 9.3 g/dL (12.9-16.9); Mean Corpuscular HGB Conc 33.3 g/dL (31.6-35.5); Mean Corpuscular Hemoglobin 31.5 pg (28.0-33.3); Mean Corpuscular Volume 94.6 fL (83.0-100.0); Mean Platelet Volume 11.9 fL (9.4-12.4); Platelet Count 248 K/mcL (140-400); Red Blood Count 2.95 M/mcL (4.19-5.50); Red Cell Distribution Width 13.6 % (11.5-14.5)
[2020-11-07 06:18] LABS: BUN/Creatinine Ratio 40 (6-26); Blood Urea Nitrogen 39 mg/dL (8-23); Calcium 8.8 mg/dL (8.6-10.3); Carbon Dioxide 26 mEq/L (23-29); Chloride 101 mEq/L (98-107); Glucose 234 mg/dL (70-105); Osmolality,Calculated 291 (280-300); Sodium 132 mEq/L (136-145); eGFR For African Americans > 60 (> 60); eGFR For Non-African Americans > 60 (> 60)
[2020-11-07] MEDS: Furosemide 40 MG TABLET PO SCH (09:41)
[2020-11-07] MEDS: Aspirin Enteric Coated 81 MG Tablet PO SCH (09:41)
[2020-11-07] MEDS: Isosorbide MONOnitrate (24 HR) 60 MG TAB.ER.24H PO SCH (09:42)
[2020-11-07] MEDS: Cyanocobalamin (B-12) 1,000 MCG TABLET PO SCH (09:42)
[2020-11-07] MEDS: carvediloL 25 MG TABLET PO SCH ×2 (09:42→17:33)
[2020-11-07] MEDS: Apixaban 5 MG TABLET PO SCH ×2 (09:42→21:42)
[2020-11-07] MEDS: Famotidine 20 MG TABLET PO SCH (09:42)
[2020-11-07] MEDS: Spironolactone 25 MG TABLET PO SCH (09:42)
[2020-11-07] MEDS: allopurinoL 100 MG TABLET PO SCH (09:43)
[2020-11-07] MEDS: lisinopriL 20 MG TABLET PO SCH (09:43)
[2020-11-07] MEDS: Insulin LISPRO 300 UNITS/3 ML VIAL SUBQ SCH ×7 (09:45→21:42)
[2020-11-07] MEDS: Insulin DETEMIR 100 UNIT/ML X5UNITS SUBQ SCH ×2 (09:49→21:42)
[2020-11-07] MEDS ORDERED: Potassium Chloride 40 MEQ, Lidocaine 1% 2 ML in 0.9 % Sodium Chloride 500 ML IVPB ONE (11:11)
[2020-11-08] MEDS: Piperacillin/Tazobactam 3.375 GM in 0.9 % Sodium Chloride Mini Bag 100 ML IVPB SCH ×4 (00:11→23:13)
[2020-11-08] MEDS: Ipratropium 1 PUFF INHALER IH SCH ×7 (00:39→23:03)
[2020-11-08] MEDS: Insulin LISPRO 300 UNITS/3 ML VIAL SUBQ SCH ×7 (07:58→21:57)
[2020-11-08] MEDS: Isosorbide MONOnitrate (24 HR) 60 MG TAB.ER.24H PO SCH (08:00)
[2020-11-08] MEDS: allopurinoL 100 MG TABLET PO SCH (08:00)
[2020-11-08] MEDS: Cyanocobalamin (B-12) 1,000 MCG TABLET PO SCH (08:00)
[2020-11-08] MEDS: lisinopriL 20 MG TABLET PO SCH (08:00)
[2020-11-08] MEDS: Aspirin Enteric Coated 81 MG Tablet PO SCH (08:00)
[2020-11-08] MEDS: Apixaban 5 MG TABLET PO SCH ×2 (08:00→21:57)
[2020-11-08] MEDS: Famotidine 20 MG TABLET PO SCH (08:00)
[2020-11-08] MEDS: dexAMETHasone 4 MG TABLET PO SCH (08:00)
[2020-11-08] MEDS: carvediloL 25 MG TABLET PO SCH ×2 (08:01→17:19)
[2020-11-08] MEDS: Furosemide 40 MG TABLET PO SCH (08:01)
[2020-11-08] MEDS: Spironolactone 25 MG TABLET PO SCH (08:01)
[2020-11-08] MEDS: Insulin DETEMIR 100 UNIT/ML X5UNITS SUBQ SCH ×2 (08:05→21:57)
[2020-11-08 23:22] VITALS: PULSE 60
[2020-11-09 02:22] LABS: Hematocrit 28.1 % (37.5-50.1); Hemoglobin 9.5 g/dL (12.9-16.9); Mean Corpuscular HGB Conc 33.8 g/dL (31.6-35.5); Mean Corpuscular Hemoglobin 31.9 pg (28.0-33.3); Mean Corpuscular Volume 94.3 fL (83.0-100.0); Mean Platelet Volume 11.6 fL (9.4-12.4); Platelet Count 266 K/mcL (140-400); Red Blood Count 2.98 M/mcL (4.19-5.50); Red Cell Distribution Width 13.5 % (11.5-14.5); White Blood Count 18.4 K/mcL (4.3-11.1)
[2020-11-09 02:43] LABS: BUN/Creatinine Ratio 44 (6-26); Blood Urea Nitrogen 51 mg/dL (8-23); Calcium 8.6 mg/dL (8.6-10.3); Carbon Dioxide 23 mEq/L (23-29); Chloride 101 mEq/L (98-107); Glucose 272 mg/dL (70-105); Osmolality,Calculated 295 (280-300); Potassium 4.9 mEq/L (3.5-5.1); Sodium 131 mEq/L (136-145); eGFR For African Americans > 60 (> 60); eGFR For Non-African Americans > 60 (> 60)
[2020-11-09] MEDS: Ipratropium 1 PUFF INHALER IH SCH ×4 (03:45→15:15)
[2020-11-09 07:33] VITALS: BP 153/60; TEMP 97.5; O2SAT 90
[2020-11-09] MEDS: Piperacillin/Tazobactam 3.375 GM in 0.9 % Sodium Chloride Mini Bag 100 ML IVPB SCH (08:38)
[2020-11-09] MEDS: Insulin DETEMIR 100 UNIT/ML X5UNITS SUBQ SCH (08:38)
[2020-11-09] MEDS: Apixaban 5 MG TABLET PO SCH (08:39)
[2020-11-09] MEDS: Furosemide 40 MG TABLET PO SCH (08:39)
[2020-11-09] MEDS: Famotidine 20 MG TABLET PO SCH (08:39)
[2020-11-09] MEDS: Spironolactone 25 MG TABLET PO SCH (08:39)
[2020-11-09] MEDS: dexAMETHasone 4 MG TABLET PO SCH (08:39)
[2020-11-09] MEDS: carvediloL 25 MG TABLET PO SCH (08:39)
[2020-11-09] MEDS: Isosorbide MONOnitrate (24 HR) 60 MG TAB.ER.24H PO SCH (08:40)
[2020-11-09] MEDS: allopurinoL 100 MG TABLET PO SCH (08:40)
[2020-11-09] MEDS: lisinopriL 20 MG TABLET PO SCH (08:40)
[2020-11-09] MEDS: Cyanocobalamin (B-12) 1,000 MCG TABLET PO SCH (08:40)
[2020-11-09] MEDS: Aspirin Enteric Coated 81 MG Tablet PO SCH (08:40)
[2020-11-09] MEDS: Insulin LISPRO 300 UNITS/3 ML VIAL SUBQ SCH ×4 (08:41→11:53)
== END 2020-11-09 16:27 | disposition home health service (06) | DRG 871 ==
LOC: EMEROOARM 13:53 → 2ANU 13:53 → SUATTDRO 11-03 20:25
PROVIDERS: ADMIT Internal Medicine; ATTEND Internal Medicine

== ENCOUNTER 2020-11-18 03:32 | Inpatient (IN) ==
[2020-11-18 04:20] LABS: VBG HCO3 28 mEq/L (21-27); VBG PCO2 47 mmHg (41-51); VBG PH 7.39 pH Units (7.32-7.42); VBG PO2 91 mmHg (25-50)
[2020-11-18 04:42] LABS: Alanine Aminotransferase 21 Units/L (7-52); Alkaline Phosphatase 65 Units/L (34-104); Aspartate Amino Transferase 16 Units/L (13-39); BUN/Creatinine Ratio 31 (6-26); Bilirubin,Total 0.6 mg/dL (0.3-1.0); Blood Urea Nitrogen 40 mg/dL (8-23); Calcium 8.5 mg/dL (8.6-10.3); Carbon Dioxide 28 mEq/L (23-29); Chloride 103 mEq/L (98-107); Glucose 76 mg/dL (70-105); Osmolality,Calculated 295 (280-300); Potassium 3.4 mEq/L (3.5-5.1); Sodium 138 mEq/L (136-145); eGFR For African Americans > 60 (> 60); eGFR For Non-African Americans 57 (> 60)
[2020-11-18 04:54] LABS: Troponin I 0.05 ng/mL (< 0.04)
[2020-11-18 04:56] LABS: Basophils % 0.1 %; Eosinophils # 0.2 K/mcL (0.0-0.6); Hematocrit 27.6 % (37.5-50.1); Hemoglobin 9.1 g/dL (12.9-16.9); Immature Granulocytes % 1.2 % (0-4); Lymphocytes # 0.8 K/mcL (0.6-4.6); Lymphocytes % 4.6 %; Mean Platelet Volume 10.4 fL (9.4-12.4); Monocytes % 5.9 %; Neutrophils # 15.2 K/mcL (1.6-8.9); Platelet Count 220 K/mcL (140-400); Red Blood Count 2.76 M/mcL (4.19-5.50); Red Cell Distribution Width 14.7 % (11.5-14.5); Segmented Neutrophils % 87.2 %; White Blood Count 17.4 K/mcL (4.3-11.1)
[2020-11-18] MEDS ORDERED: Piperacillin/Tazobactam 3.375 GM in 0.9 % Sodium Chloride Mini Bag 100 ML IVPB ONE (07:33)
[2020-11-18] MEDS ORDERED: Vancomycin 1,750 MG/517.5 ML IV.SOLN IVPB ONE (07:34)
[2020-11-18] MEDS ORDERED: 0.9 % Sodium Chloride 500 ML ONE (08:16)
[2020-11-18] MEDS ORDERED: Acetaminophen 325 MG TABLET PO PRN (08:51)
[2020-11-18] MEDS ORDERED: *HR* HYDROcodone/Acet 5/325 mg TABLET PO PRN (08:51)
[2020-11-18] MEDS ORDERED: Naloxone 0.4 MG/ML INJ IVP PRN (08:51)
[2020-11-18] MEDS ORDERED: *HR* OxyCODONE Immed Rel 5 MG TABLET PO PRN (08:51)
[2020-11-18] MEDS ORDERED: Ondansetron 4 MG/2 ML VIAL IVP PRN (08:51)
[2020-11-18] MEDS ORDERED: Dextrose Gel 15 GM/37.5 ML TUBE PO PRN ×2 (08:54)
[2020-11-18] MEDS ORDERED: *HR* Dextrose 50 % in Water (Vial) 50 ML VIAL IVP PRN (08:54)
[2020-11-18] MEDS ORDERED: D5% in Water 1,000 ML IVC PRN (08:54)
[2020-11-18] MEDS ORDERED: Lidocaine 1% 20 ML MDV INFILT ONE (10:30)
[2020-11-18] MEDS: Insulin LISPRO 300 UNITS/3 ML VIAL SUBQ SCH ×2 (13:46→17:59)
[2020-11-18] MEDS: lisinopriL 20 MG TABLET PO SCH (13:56)
[2020-11-18] MEDS: carvediloL 6.25 MG TABLET PO SCH ×2 (13:56→22:42)
[2020-11-18] MEDS ORDERED: D5% in Water 1,000 ML IVC SCH (15:15)
[2020-11-18] MEDS: Piperacillin/Tazobactam 3.375 GM in 0.9 % Sodium Chloride Mini Bag 100 ML IVPB SCH ×2 (16:32→22:58)
[2020-11-18] MEDS: Furosemide 40 MG TABLET PO SCH (16:33)
[2020-11-18 17:00] LABS: RBC,Pleural Fluid 21000 RBC/mcL
[2020-11-18 17:54] LABS: Appearance of Pleural Fl Cloudy (Clear); Basophils,Pleural Fluid 0 %; Monocytes,Pleural Fluid 0 %
[2020-11-18] MEDS: Apixaban 5 MG TABLET PO SCH (22:42)
[2020-11-18] MEDS: hydrALAZINE 25 MG TABLET PO SCH (22:42)
[2020-11-19 02:51] LABS: Eosinophils # 0.1 K/mcL (0.0-0.6); Eosinophils % 1.4 %; Hematocrit 22.9 % (37.5-50.1); Immature Granulocytes % 0.8 % (0-4); Lymphocytes # 0.7 K/mcL (0.6-4.6); Lymphocytes % 7.5 %; Mean Corpuscular HGB Conc 32.8 g/dL (31.6-35.5); Mean Corpuscular Hemoglobin 32.5 pg (28.0-33.3); Mean Corpuscular Volume 99.1 fL (83.0-100.0); Mean Platelet Volume 10.2 fL (9.4-12.4); Monocytes # 0.6 K/mcL (0.0-1.3); Monocytes % 6.1 %; Neutrophils # 7.6 K/mcL (1.6-8.9); Platelet Count 130 K/mcL (140-400); Red Blood Count 2.31 M/mcL (4.19-5.50); Red Cell Distribution Width 14.7 % (11.5-14.5); Segmented Neutrophils % 84.2 %
[2020-11-19 02:58] LABS: Hemoglobin 7.5 g/dL (12.9-16.9)
[2020-11-19 03:09] LABS: BUN/Creatinine Ratio 24 (6-26); Blood Urea Nitrogen 27 mg/dL (8-23); Calcium 7.4 mg/dL (8.6-10.3); Carbon Dioxide 27 mEq/L (23-29); Chloride 101 mEq/L (98-107); Glucose 75 mg/dL (70-105); Osmolality,Calculated 284 (280-300); Potassium 4.1 mEq/L (3.5-5.1); Sodium 135 mEq/L (136-145); eGFR For African Americans > 60 (> 60); eGFR For Non-African Americans > 60 (> 60)
[2020-11-19] MEDS: Apixaban 5 MG TABLET PO SCH (08:49)
[2020-11-19] MEDS: carvediloL 6.25 MG TABLET PO SCH ×2 (08:50→21:17)
[2020-11-19] MEDS: Furosemide 40 MG TABLET PO SCH ×2 (08:50→17:13)
[2020-11-19] MEDS: hydrALAZINE 25 MG TABLET PO SCH ×2 (08:50→22:17)
[2020-11-19] MEDS: lisinopriL 20 MG TABLET PO SCH (08:51)
[2020-11-19] MEDS: Piperacillin/Tazobactam 3.375 GM in 0.9 % Sodium Chloride Mini Bag 100 ML IVPB SCH ×3 (08:52→23:07)
[2020-11-19] MEDS ORDERED: allopurinoL 100 MG TABLET PO SCH (09:00)
[2020-11-19] MEDS ORDERED: Cyanocobalamin (B-12) 1,000 MCG TABLET PO SCH (09:00)
[2020-11-19] MEDS ORDERED: Aspirin Enteric Coated 81 MG Tablet PO SCH (09:00)
[2020-11-19] MEDS ORDERED: Isosorbide MONOnitrate (24 HR) 60 MG TAB.ER.24H PO SCH (09:00)
[2020-11-19] MEDS ORDERED: Vancomycin 1,750 MG/517.5 ML IV.SOLN IVPB SCH (10:00)
[2020-11-19 11:27] LABS: Hematocrit 21.6 % (37.5-50.1); Hemoglobin 6.9 g/dL (12.9-16.9)
[2020-11-19] MEDS: Insulin LISPRO 300 UNITS/3 ML VIAL SUBQ SCH ×3 (12:46→17:13)
[2020-11-19] MEDS ORDERED: 0.9 % Sodium Chloride 250 ML IVC SCH ×2 (13:15→13:45)
[2020-11-19] MEDS ORDERED: Ondansetron 4 MG/2 ML VIAL IVP PRN (13:45)
[2020-11-19] MEDS ORDERED: *HR* HYDROcodone/Acet 5/325 mg TABLET PO PRN (13:45)
[2020-11-19] MEDS ORDERED: D5% in Water 1,000 ML IVC PRN (13:45)
[2020-11-19] MEDS ORDERED: Naloxone 0.4 MG/ML INJ IVP PRN (13:45)
[2020-11-19] MEDS ORDERED: *HR* OxyCODONE Immed Rel 5 MG TABLET PO PRN (13:45)
[2020-11-19] MEDS ORDERED: Dextrose Gel 15 GM/37.5 ML TUBE PO PRN ×2 (13:45)
[2020-11-19] MEDS ORDERED: *HR* Dextrose 50 % in Water (Vial) 50 ML VIAL IVP PRN (13:45)
[2020-11-19] MEDS: Acetylcysteine 10% 2 ML INHSOL IH SCH ×3 (15:04→23:52)
[2020-11-19] MEDS: Ipratropium/Albuterol Neb 3 ML IH SCH ×3 (15:05→23:52)
[2020-11-19] MEDS ORDERED: 0.9 % Sodium Chloride 250 ML ONE (19:42)
[2020-11-20 01:16] LABS: Basophils % 0.1 %; Eosinophils # 0.1 K/mcL (0.0-0.6); Eosinophils % 1.4 %; Hemoglobin 7.7 g/dL (12.9-16.9); Immature Granulocytes % 0.9 % (0-4); Lymphocytes # 0.8 K/mcL (0.6-4.6); Lymphocytes % 8.3 %; Mean Corpuscular HGB Conc 32.1 g/dL (31.6-35.5); Mean Corpuscular Hemoglobin 31.7 pg (28.0-33.3); Mean Corpuscular Volume 98.8 fL (83.0-100.0); Mean Platelet Volume 10.3 fL (9.4-12.4); Monocytes # 0.6 K/mcL (0.0-1.3); Monocytes % 6.2 %; Neutrophils # 7.8 K/mcL (1.6-8.9); Platelet Count 110 K/mcL (140-400); Red Blood Count 2.43 M/mcL (4.19-5.50); Red Cell Distribution Width 15.9 % (11.5-14.5); Segmented Neutrophils % 83.1 %; White Blood Count 9.3 K/mcL (4.3-11.1)
[2020-11-20 01:36] LABS: Calcium 7.7 mg/dL (8.6-10.3); Potassium 4.2 mEq/L (3.5-5.1)
[2020-11-20] MEDS: Ipratropium/Albuterol Neb 3 ML IH SCH ×4 (04:27→21:05)
[2020-11-20] MEDS: Acetylcysteine 10% 2 ML INHSOL IH SCH ×4 (04:27→21:05)
[2020-11-20] MEDS: Insulin LISPRO 300 UNITS/3 ML VIAL SUBQ SCH ×3 (07:14→17:02)
[2020-11-20] MEDS: hydrALAZINE 25 MG TABLET PO SCH ×2 (07:15→21:01)
[2020-11-20] MEDS: Isosorbide MONOnitrate (24 HR) 60 MG TAB.ER.24H PO SCH (07:15)
[2020-11-20] MEDS: Piperacillin/Tazobactam 3.375 GM in 0.9 % Sodium Chloride Mini Bag 100 ML IVPB SCH ×3 (07:16→23:58)
[2020-11-20] MEDS: carvediloL 6.25 MG TABLET PO SCH ×2 (07:16→17:02)
[2020-11-20] MEDS: allopurinoL 100 MG TABLET PO SCH (07:16)
[2020-11-20] MEDS: Cyanocobalamin (B-12) 1,000 MCG TABLET PO SCH (07:16)
[2020-11-20] MEDS: Aspirin Enteric Coated 81 MG Tablet PO SCH (07:16)
[2020-11-20] MEDS: Furosemide 40 MG TABLET PO SCH (07:16)
[2020-11-20] MEDS ORDERED: lisinopriL 20 MG TABLET PO SCH (09:00)
[2020-11-20] MEDS ORDERED: Vancomycin 1,750 MG/517.5 ML IV.SOLN IVPB SCH (10:00)
[2020-11-20 12:51] LABS: Hematocrit 24.9 % (37.5-50.1); Hemoglobin 7.9 g/dL (12.9-16.9)
[2020-11-21 02:18] LABS: Basophils % 0.1 %; Eosinophils # 0.1 K/mcL (0.0-0.6); Eosinophils % 1.3 %; Hematocrit 23.5 % (37.5-50.1); Hemoglobin 7.5 g/dL (12.9-16.9); Immature Granulocytes % 0.6 % (0-4); Immature Platelets 2.9 % (1.1-6.1); Lymphocytes # 0.6 K/mcL (0.6-4.6); Lymphocytes % 5.7 %; Mean Corpuscular HGB Conc 31.9 g/dL (31.6-35.5); Mean Corpuscular Hemoglobin 32.1 pg (28.0-33.3); Mean Corpuscular Volume 100.4 fL (83.0-100.0); Mean Platelet Volume 11.1 fL (9.4-12.4); Monocytes # 0.6 K/mcL (0.0-1.3); Monocytes % 5.5 %; Neutrophils # 9.2 K/mcL (1.6-8.9); Red Blood Count 2.34 M/mcL (4.19-5.50); Red Cell Distribution Width 15.8 % (11.5-14.5); Segmented Neutrophils % 86.8 %; White Blood Count 10.6 K/mcL (4.3-11.1)
[2020-11-21 02:32] LABS: BUN/Creatinine Ratio 22 (6-26); Blood Urea Nitrogen 28 mg/dL (8-23); Calcium 7.6 mg/dL (8.6-10.3); Carbon Dioxide 25 mEq/L (23-29); Chloride 102 mEq/L (98-107); Glucose 153 mg/dL (70-105); Osmolality,Calculated 285 (280-300); Potassium 4.3 mEq/L (3.5-5.1); Sodium 133 mEq/L (136-145); eGFR For African Americans > 60 (> 60); eGFR For Non-African Americans 57 (> 60)
[2020-11-21 02:40] LABS: Anisocytosis 1+ (Not Present); Platelet Count 89 K/mcL (140-400); Platelet Estimate Slight Decrease (Normal)
[2020-11-21] MEDS: Acetylcysteine 10% 2 ML INHSOL IH SCH ×4 (02:59→22:19)
[2020-11-21] MEDS: Ipratropium/Albuterol Neb 3 ML IH SCH ×4 (03:00→22:18)
[2020-11-21] MEDS: Insulin LISPRO 300 UNITS/3 ML VIAL SUBQ SCH ×3 (07:12→16:57)
[2020-11-21] MEDS: Isosorbide MONOnitrate (24 HR) 60 MG TAB.ER.24H PO SCH (07:21)
[2020-11-21] MEDS: Furosemide 40 MG TABLET PO SCH ×2 (07:21→16:57)
[2020-11-21] MEDS: Aspirin Enteric Coated 81 MG Tablet PO SCH (07:21)
[2020-11-21] MEDS: Cyanocobalamin (B-12) 1,000 MCG TABLET PO SCH (07:21)
[2020-11-21] MEDS: allopurinoL 100 MG TABLET PO SCH (07:21)
[2020-11-21] MEDS: hydrALAZINE 25 MG TABLET PO SCH ×2 (07:21→21:10)
[2020-11-21] MEDS: lisinopriL 20 MG TABLET PO SCH (07:21)
[2020-11-21] MEDS: Piperacillin/Tazobactam 3.375 GM in 0.9 % Sodium Chloride Mini Bag 100 ML IVPB SCH ×3 (07:21→22:48)
[2020-11-21] MEDS: carvediloL 6.25 MG TABLET PO SCH ×2 (07:21→16:57)
[2020-11-21 10:18] LABS: Ferritin 518 ng/mL (20-250); Iron < 10 mcg/dL (65-175); Transferrin 158 mg/dL (203-362)
[2020-11-22 03:28] LABS: Basophils % 0.1 %; Eosinophils # 0.1 K/mcL (0.0-0.6); Eosinophils % 1.2 %; Hematocrit 22.3 % (37.5-50.1); Hemoglobin 7.1 g/dL (12.9-16.9); Immature Granulocytes % 0.6 % (0-4); Immature Platelets 3.5 % (1.1-6.1); Lymphocytes # 0.7 K/mcL (0.6-4.6); Lymphocytes % 7.2 %; Mean Corpuscular HGB Conc 31.8 g/dL (31.6-35.5); Mean Corpuscular Volume 100.5 fL (83.0-100.0); Mean Platelet Volume 11.4 fL (9.4-12.4); Monocytes # 0.6 K/mcL (0.0-1.3); Monocytes % 6.1 %; Neutrophils # 8.5 K/mcL (1.6-8.9); Platelet Count 81 K/mcL (140-400); Red Blood Count 2.22 M/mcL (4.19-5.50); Red Cell Distribution Width 14.8 % (11.5-14.5); Segmented Neutrophils % 84.8 %
[2020-11-22 03:45] LABS: Calcium 7.7 mg/dL (8.6-10.3); Potassium 4.3 mEq/L (3.5-5.1)
[2020-11-22] MEDS: Ipratropium/Albuterol Neb 3 ML IH SCH ×4 (04:07→21:53)
[2020-11-22] MEDS: Acetylcysteine 10% 2 ML INHSOL IH SCH ×2 (04:07→11:51)
[2020-11-22] MEDS: Benzonatate 100 MG CAPSULE PO PRN ×2 (04:39→12:16)
[2020-11-22] MEDS: Acetaminophen 325 MG TABLET PO PRN (04:39)
[2020-11-22] MEDS: Insulin LISPRO 300 UNITS/3 ML VIAL SUBQ SCH ×3 (07:33→16:13)
[2020-11-22] MEDS: Piperacillin/Tazobactam 3.375 GM in 0.9 % Sodium Chloride Mini Bag 100 ML IVPB SCH ×2 (07:56→16:10)
[2020-11-22] MEDS: carvediloL 6.25 MG TABLET PO SCH ×2 (07:58→20:37)
[2020-11-22] MEDS: allopurinoL 100 MG TABLET PO SCH (07:58)
[2020-11-22] MEDS: Aspirin Enteric Coated 81 MG Tablet PO SCH (07:58)
[2020-11-22] MEDS: hydrALAZINE 25 MG TABLET PO SCH ×2 (07:58→20:38)
[2020-11-22] MEDS: Isosorbide MONOnitrate (24 HR) 60 MG TAB.ER.24H PO SCH (07:59)
[2020-11-22] MEDS: Cyanocobalamin (B-12) 1,000 MCG TABLET PO SCH (07:59)
[2020-11-22] MEDS: lisinopriL 20 MG TABLET PO SCH (07:59)
[2020-11-23] MEDS: Vancomycin 1,500 MG/265 ML IV.SOLN IVPB SCH (00:13)
[2020-11-23] MEDS: Piperacillin/Tazobactam 3.375 GM in 0.9 % Sodium Chloride Mini Bag 100 ML IVPB SCH ×3 (02:00→16:25)
[2020-11-23] MEDS: Ipratropium/Albuterol Neb 3 ML IH SCH ×4 (04:42→22:24)
[2020-11-23 07:02] LABS: QuantiFERON Mitogen minus NIL 8.59 IU/mL
[2020-11-23 07:51] LABS: Basophils % 0.1 %
[2020-11-23 07:53] LABS: Eosinophils # 0.1 K/mcL (0.0-0.6); Eosinophils % 1.4 %; Hemoglobin 6.8 g/dL (12.9-16.9); Immature Granulocytes % 0.6 % (0-4); Immature Platelets 3.6 % (1.1-6.1); Lymphocytes # 0.6 K/mcL (0.6-4.6); Lymphocytes % 6.7 %; Mean Corpuscular HGB Conc 32.4 g/dL (31.6-35.5); Mean Corpuscular Hemoglobin 32.2 pg (28.0-33.3); Mean Corpuscular Volume 99.5 fL (83.0-100.0); Mean Platelet Volume 10.9 fL (9.4-12.4); Monocytes # 0.7 K/mcL (0.0-1.3); Monocytes % 7.7 %; Neutrophils # 7.3 K/mcL (1.6-8.9); Platelet Count 94 K/mcL (140-400); Red Blood Count 2.11 M/mcL (4.19-5.50); Red Cell Distribution Width 14.3 % (11.5-14.5); Segmented Neutrophils % 83.5 %; White Blood Count 8.7 K/mcL (4.3-11.1)
[2020-11-23] MEDS: Isosorbide MONOnitrate (24 HR) 60 MG TAB.ER.24H PO SCH (08:13)
[2020-11-23] MEDS: hydrALAZINE 25 MG TABLET PO SCH ×2 (08:13→20:17)
[2020-11-23] MEDS: lisinopriL 20 MG TABLET PO SCH (08:14)
[2020-11-23] MEDS: carvediloL 6.25 MG TABLET PO SCH ×2 (08:14→16:35)
[2020-11-23] MEDS: Cyanocobalamin (B-12) 1,000 MCG TABLET PO SCH (08:14)
[2020-11-23] MEDS: Aspirin Enteric Coated 81 MG Tablet PO SCH (08:14)
[2020-11-23] MEDS: allopurinoL 100 MG TABLET PO SCH (08:14)
[2020-11-23] MEDS: Insulin LISPRO 300 UNITS/3 ML VIAL SUBQ SCH ×4 (08:15→16:50)
[2020-11-23] MEDS ORDERED: 0.9 % Sodium Chloride 250 ML IVC SCH (09:15)
[2020-11-23 10:29] LABS: QuantiFERON NIL 0.02 IU/mL; QuantiFERON-TB Gold In-Tube NEGATIVE (Negative)
[2020-11-23 10:32] LABS: Albumin 2.4 g/dL (3.5-5.7); Albumin/Globulin Ratio 0.8 (1.1-2.2); Bilirubin,Direct 0.3 mg/dL (0.0-0.2); Bilirubin,Indirect 0.7 mg/dL (0.0-1.0); Total Protein 5.4 g/dL (6.4-8.9)
[2020-11-23] MEDS ORDERED: Isovue-370 500 ML BOTTLE IVP ONE (12:09)
[2020-11-23] MEDS ORDERED: Isovue-370 500 ML BOTTLE PO ONE (13:43)
[2020-11-23 17:52] LABS: Hematocrit 25.1 % (37.5-50.1); Hemoglobin 8.1 g/dL (12.9-16.9)
[2020-11-23] MEDS: Acetaminophen 325 MG TABLET PO PRN (20:41)
[2020-11-24] MEDS: Piperacillin/Tazobactam 3.375 GM in 0.9 % Sodium Chloride Mini Bag 100 ML IVPB SCH ×3 (01:26→16:00)
[2020-11-24] MEDS: Vancomycin 1,500 MG/265 ML IV.SOLN IVPB SCH (01:26)
[2020-11-24] MEDS: Ipratropium/Albuterol Neb 3 ML IH SCH ×4 (04:11→20:57)
[2020-11-24] MEDS: Insulin LISPRO 300 UNITS/3 ML VIAL SUBQ SCH ×3 (07:33→16:17)
[2020-11-24 07:43] LABS: Eosinophils # 0.1 K/mcL (0.0-0.6); Eosinophils % 2.1 %; Hematocrit 23.2 % (37.5-50.1); Hemoglobin 7.3 g/dL (12.9-16.9); Immature Granulocytes % 0.4 % (0-4); Lymphocytes # 0.4 K/mcL (0.6-4.6); Lymphocytes % 6.2 %; Mean Corpuscular HGB Conc 31.5 g/dL (31.6-35.5); Mean Corpuscular Hemoglobin 31.2 pg (28.0-33.3); Mean Corpuscular Volume 99.1 fL (83.0-100.0); Mean Platelet Volume 10.8 fL (9.4-12.4); Monocytes # 0.5 K/mcL (0.0-1.3); Monocytes % 7.1 %; Neutrophils # 5.7 K/mcL (1.6-8.9); Platelet Count 111 K/mcL (140-400); Red Blood Count 2.34 M/mcL (4.19-5.50); Red Cell Distribution Width 14.5 % (11.5-14.5); Segmented Neutrophils % 84.2 %; White Blood Count 6.8 K/mcL (4.3-11.1)
[2020-11-24 07:53] LABS: BUN/Creatinine Ratio 25 (6-26); Blood Urea Nitrogen 30 mg/dL (8-23); Calcium 8.2 mg/dL (8.6-10.3); Carbon Dioxide 25 mEq/L (23-29); Chloride 104 mEq/L (98-107); Glucose 44 mg/dL (70-105); Osmolality,Calculated 285 (280-300); Sodium 136 mEq/L (136-145); eGFR For African Americans > 60 (> 60); eGFR For Non-African Americans 60 (> 60)
[2020-11-24] MEDS: hydrALAZINE 25 MG TABLET PO SCH ×2 (08:04→20:55)
[2020-11-24] MEDS: Aspirin Enteric Coated 81 MG Tablet PO SCH (08:04)
[2020-11-24] MEDS: Cyanocobalamin (B-12) 1,000 MCG TABLET PO SCH (08:05)
[2020-11-24] MEDS: Isosorbide MONOnitrate (24 HR) 60 MG TAB.ER.24H PO SCH (08:05)
[2020-11-24] MEDS: allopurinoL 100 MG TABLET PO SCH (08:05)
[2020-11-24] MEDS: carvediloL 6.25 MG TABLET PO SCH ×2 (08:06→16:00)
[2020-11-24] MEDS: Acetaminophen 325 MG TABLET PO PRN (20:56)
[2020-11-25 02:11] LABS: Basophils % 0.1 %; Eosinophils # 0.2 K/mcL (0.0-0.6); Eosinophils % 3.2 %; Hematocrit 22.9 % (37.5-50.1); Hemoglobin 7.2 g/dL (12.9-16.9); Immature Granulocytes % 0.7 % (0-4); Lymphocytes # 0.5 K/mcL (0.6-4.6); Lymphocytes % 6.8 %; Mean Corpuscular HGB Conc 31.4 g/dL (31.6-35.5); Mean Corpuscular Hemoglobin 31.4 pg (28.0-33.3); Mean Platelet Volume 10.9 fL (9.4-12.4); Monocytes # 0.5 K/mcL (0.0-1.3); Monocytes % 7.4 %; Neutrophils # 5.6 K/mcL (1.6-8.9); Platelet Count 125 K/mcL (140-400); Red Blood Count 2.29 M/mcL (4.19-5.50); Red Cell Distribution Width 14.2 % (11.5-14.5); Segmented Neutrophils % 81.8 %; White Blood Count 6.9 K/mcL (4.3-11.1)
[2020-11-25 02:26] LABS: Alanine Aminotransferase 13 Units/L (7-52); Albumin 2.4 g/dL (3.5-5.7); Albumin/Globulin Ratio 0.7 (1.1-2.2); Alkaline Phosphatase 99 Units/L (34-104); Aspartate Amino Transferase 17 Units/L (13-39); BUN/Creatinine Ratio 31 (6-26); Bilirubin,Total 0.7 mg/dL (0.3-1.0); Blood Urea Nitrogen 38 mg/dL (8-23); Calcium 7.9 mg/dL (8.6-10.3); Carbon Dioxide 22 mEq/L (23-29); Chloride 102 mEq/L (98-107); Globulin 3.4 g/dL (2.4-3.5); Glucose 190 mg/dL (70-105); Osmolality,Calculated 286 (280-300); Potassium 4.2 mEq/L (3.5-5.1); Sodium 131 mEq/L (136-145); Total Protein 5.8 g/dL (6.4-8.9); eGFR For African Americans > 60 (> 60); eGFR For Non-African Americans 58 (> 60)
[2020-11-25] MEDS: Vancomycin 1,500 MG/265 ML IV.SOLN IVPB SCH ×2 (03:00→23:25)
[2020-11-25] MEDS: Ipratropium/Albuterol Neb 3 ML IH SCH ×4 (04:10→21:28)
[2020-11-25] MEDS: Piperacillin/Tazobactam 3.375 GM in 0.9 % Sodium Chloride Mini Bag 100 ML IVPB SCH ×2 (04:32→08:59)
[2020-11-25] MEDS: allopurinoL 100 MG TABLET PO SCH (07:25)
[2020-11-25] MEDS: hydrALAZINE 25 MG TABLET PO SCH ×2 (07:25→20:44)
[2020-11-25] MEDS: carvediloL 6.25 MG TABLET PO SCH ×2 (07:26→16:02)
[2020-11-25] MEDS: Isosorbide MONOnitrate (24 HR) 60 MG TAB.ER.24H PO SCH (07:26)
[2020-11-25] MEDS: Aspirin Enteric Coated 81 MG Tablet PO SCH (07:26)
[2020-11-25] MEDS: Cyanocobalamin (B-12) 1,000 MCG TABLET PO SCH (07:31)
[2020-11-25] MEDS ORDERED: Lidocaine -MPF 1% 5 ML AMPUL INFILT ONE (09:31)
[2020-11-25] MEDS: Insulin LISPRO 300 UNITS/3 ML VIAL SUBQ SCH ×2 (12:00→17:42)
[2020-11-25] MEDS: cefTRIAXone 2,000 MG in Water for inj. (sterile) 20 ML IVP SCH (15:40)
[2020-11-25] MEDS: Furosemide 40 MG TABLET PO SCH (16:02)
[2020-11-25 23:22] LABS: Influenza A PCR Negative (Negative); Influenza B PCR Negative (Negative); Resp. Syncytial Virus PCR Negative (Negative)
[2020-11-25] MEDS: Acetaminophen 325 MG TABLET PO PRN (23:25)
[2020-11-25 23:43] LABS: SARS-CoV-2 by PCR (In House) Positive (Negative)
[2020-11-26] MEDS: Ipratropium/Albuterol Neb 3 ML IH SCH ×2 (03:40→09:46)
[2020-11-26] MEDS: carvediloL 6.25 MG TABLET PO SCH ×2 (09:43→17:41)
[2020-11-26] MEDS: Furosemide 40 MG TABLET PO SCH ×2 (09:44→17:42)
[2020-11-26] MEDS: hydrALAZINE 25 MG TABLET PO SCH ×2 (09:44→21:41)
[2020-11-26] MEDS: Aspirin Enteric Coated 81 MG Tablet PO SCH (09:44)
[2020-11-26] MEDS: allopurinoL 100 MG TABLET PO SCH (09:45)
[2020-11-26] MEDS: Cyanocobalamin (B-12) 1,000 MCG TABLET PO SCH (09:45)
[2020-11-26] MEDS: Isosorbide MONOnitrate (24 HR) 60 MG TAB.ER.24H PO SCH (09:45)
[2020-11-26] MEDS: Insulin LISPRO 300 UNITS/3 ML VIAL SUBQ SCH (11:18)
[2020-11-26] MEDS ORDERED: Lidocaine -MPF 1% 5 ML AMPUL INFILT ONE (12:51)
[2020-11-26] MEDS: Ipratropium 1 PUFF INHALER IH SCH ×2 (16:08→22:44)
[2020-11-26] MEDS: Acetaminophen 325 MG TABLET PO PRN (18:53)
[2020-11-26] MEDS ORDERED: Insulin DETEMIR 100 UNIT/ML X5UNITS SUBQ SCH (21:00)
[2020-11-26] MEDS: cefTRIAXone 2,000 MG in Water for inj. (sterile) 20 ML IVP SCH (21:43)
[2020-11-27] MEDS: Vancomycin 1,500 MG/265 ML IV.SOLN IVPB SCH (01:43)
[2020-11-27 03:28] VITALS: TEMP 97.9
[2020-11-27] MEDS: Ipratropium 1 PUFF INHALER IH SCH ×2 (04:17→10:26)
[2020-11-27] MEDS: Aspirin Enteric Coated 81 MG Tablet PO SCH (07:41)
[2020-11-27] MEDS: hydrALAZINE 25 MG TABLET PO SCH (07:41)
[2020-11-27] MEDS: carvediloL 6.25 MG TABLET PO SCH (07:41)
[2020-11-27] MEDS: Furosemide 40 MG TABLET PO SCH (07:41)
[2020-11-27] MEDS: Isosorbide MONOnitrate (24 HR) 60 MG TAB.ER.24H PO SCH (07:44)
[2020-11-27] MEDS: Cyanocobalamin (B-12) 1,000 MCG TABLET PO SCH (07:45)
[2020-11-27] MEDS: allopurinoL 100 MG TABLET PO SCH (07:45)
[2020-11-27 08:16] VITALS: BP 147/72; PULSE 86
[2020-11-27] MEDS: Insulin LISPRO 300 UNITS/3 ML VIAL SUBQ SCH (08:36)
[2020-11-27 10:30] VITALS: O2SAT 99
== END 2020-11-27 11:48 | disposition home health service (06) | DRG 871 ==
LOC: 2NENU 03:32 → EMEROOARM 03:32 → SUATTDRO 08:51 → 2NENU 09:45 → 3NENU 17:46 → 2NNU 11-19 14:14 → 2NENU 11-22 23:01 → 3ANU 11-25 21:06
PROVIDERS: ADMIT Internal Medicine; ATTEND Student in an Organized Health Care Education/Training Program

== ENCOUNTER 2020-11-27 18:43 | Observation (INO) ==
[2020-11-27 20:18] LABS: Basophils % 0.1 %; Eosinophils # 0.3 K/mcL (0.0-0.6); Eosinophils % 4.3 %; Hematocrit 23.8 % (37.5-50.1); Hemoglobin 7.5 g/dL (12.9-16.9); Immature Granulocytes % 0.9 % (0-4); Lymphocytes # 0.6 K/mcL (0.6-4.6); Lymphocytes % 7.9 %; Mean Corpuscular HGB Conc 31.5 g/dL (31.6-35.5); Mean Corpuscular Hemoglobin 31.8 pg (28.0-33.3); Mean Corpuscular Volume 100.8 fL (83.0-100.0); Mean Platelet Volume 10.3 fL (9.4-12.4); Monocytes # 0.5 K/mcL (0.0-1.3); Monocytes % 6.7 %; Neutrophils # 5.6 K/mcL (1.6-8.9); Platelet Count 199 K/mcL (140-400); Red Blood Count 2.36 M/mcL (4.19-5.50); Red Cell Distribution Width 14.2 % (11.5-14.5); Segmented Neutrophils % 80.1 %
[2020-11-27 20:47] LABS: BUN/Creatinine Ratio 25 (6-26); Blood Urea Nitrogen 26 mg/dL (8-23); Carbon Dioxide 24 mEq/L (23-29); Chloride 102 mEq/L (98-107); Glucose 349 mg/dL (70-105); Osmolality,Calculated 297 (280-300); Potassium 4.1 mEq/L (3.5-5.1); Sodium 134 mEq/L (136-145); Troponin I 0.04 ng/mL (< 0.04); eGFR For African Americans > 60 (> 60); eGFR For Non-African Americans > 60 (> 60)
[2020-11-27] MEDS ORDERED: Isovue-370 500 ML BOTTLE IVP ONE (22:11)
[2020-11-27] MEDS ORDERED: Furosemide 40 MG/4 ML VIAL IVP ONE (23:08)
[2020-11-27] MEDS ORDERED: Vancomycin 2,000 MG/520 ML IV.SOLN IVPB ONE (23:26)
[2020-11-27] MEDS ORDERED: Piperacillin/Tazobactam 3.375 GM in 0.9 % Sodium Chloride Mini Bag 100 ML IVPB ONE (23:26)
[2020-11-28] MEDS ORDERED: Vancomycin 1,750 MG/517.5 ML IV.SOLN IVPB ONE (00:04)
[2020-11-28] MEDS ORDERED: VANCOMYCIN IVPB ONE (01:00)
[2020-11-28 01:08] LABS: Influenza A PCR Negative (Negative); Influenza B PCR Negative (Negative); Resp. Syncytial Virus PCR Negative (Negative); SARS-CoV-2 by PCR (In House) Negative (Negative)
[2020-11-28] MEDS ORDERED: Naloxone 0.4 MG/ML INJ IVP PRN (08:38)
[2020-11-28] MEDS ORDERED: Dextrose Gel 15 GM/37.5 ML TUBE PO PRN ×2 (13:32)
[2020-11-28] MEDS ORDERED: *HR* Dextrose 50 % in Water (Vial) 50 ML VIAL IVP PRN (13:32)
[2020-11-28] MEDS ORDERED: D5% in Water 1,000 ML IVC PRN (13:32)
[2020-11-28] MEDS ORDERED: Vancomycin 0 MG in 0.9 % Sodium Chloride 250 ML IVPB SCH (14:00)
[2020-11-28] MEDS: Piperacillin/Tazobactam 3.375 GM in 0.9 % Sodium Chloride Mini Bag 100 ML IVPB SCH (16:27)
[2020-11-28] MEDS: Insulin LISPRO 300 UNITS/3 ML VIAL SUBQ SCH ×2 (16:28→21:41)
[2020-11-28] MEDS: carvediloL 6.25 MG TABLET PO SCH (16:28)
[2020-11-28] MEDS: hydrALAZINE 25 MG TABLET PO SCH (21:54)
[2020-11-28] MEDS: Apixaban 5 MG TABLET PO SCH (21:55)
[2020-11-28] MEDS: Furosemide 40 MG/4 ML VIAL IVP SCH (21:55)
[2020-11-28] MEDS ORDERED: Piperacillin/Tazobactam 3.375 GM in 0.9 % Sodium Chloride Mini Bag 100 ML IVPB ONE (23:00)
[2020-11-29] MEDS: Vancomycin 1,500 MG/265 ML IV.SOLN IVPB SCH (01:53)
[2020-11-29] MEDS: Piperacillin/Tazobactam 3.375 GM in 0.9 % Sodium Chloride Mini Bag 100 ML IVPB SCH ×4 (01:54→19:53)
[2020-11-29] MEDS: Insulin LISPRO 300 UNITS/3 ML VIAL SUBQ SCH ×4 (08:07→21:33)
[2020-11-29 08:12] LABS: BUN/Creatinine Ratio 21 (6-26); Blood Urea Nitrogen 19 mg/dL (8-23); Calcium 8.4 mg/dL (8.6-10.3); Carbon Dioxide 29 mEq/L (23-29); Chloride 103 mEq/L (98-107); Glucose 82 mg/dL (70-105); Osmolality,Calculated 285 (280-300); Potassium 3.7 mEq/L (3.5-5.1); Sodium 137 mEq/L (136-145); eGFR For African Americans > 60 (> 60); eGFR For Non-African Americans > 60 (> 60)
[2020-11-29 08:13] LABS: Albumin 2.5 g/dL (3.5-5.7); Albumin/Globulin Ratio 0.8 (1.1-2.2); Bilirubin,Direct 0.2 mg/dL (0.0-0.2); Bilirubin,Indirect 0.4 mg/dL (0.0-1.0); Bilirubin,Total 0.6 mg/dL (0.3-1.0); Globulin 3.3 g/dL (2.4-3.5); Total Protein 5.8 g/dL (6.4-8.9)
[2020-11-29] MEDS: allopurinoL 100 MG TABLET PO SCH (08:33)
[2020-11-29] MEDS: Aspirin Enteric Coated 81 MG Tablet PO SCH (08:33)
[2020-11-29] MEDS: Apixaban 5 MG TABLET PO SCH ×2 (08:33→21:37)
[2020-11-29] MEDS: Spironolactone 25 MG TABLET PO SCH (08:34)
[2020-11-29] MEDS: Cyanocobalamin (B-12) 1,000 MCG TABLET PO SCH (08:34)
[2020-11-29] MEDS: carvediloL 6.25 MG TABLET PO SCH ×2 (08:34→16:54)
[2020-11-29] MEDS: Furosemide 40 MG/4 ML VIAL IVP SCH ×2 (08:34→21:38)
[2020-11-29] MEDS: lisinopriL 20 MG TABLET PO SCH (08:34)
[2020-11-29] MEDS: Isosorbide MONOnitrate (24 HR) 60 MG TAB.ER.24H PO SCH (08:34)
[2020-11-29] MEDS: hydrALAZINE 25 MG TABLET PO SCH ×2 (08:34→21:37)
[2020-11-29 09:03] LABS: Basophils % 0.2 %; Eosinophils # 0.2 K/mcL (0.0-0.6); Eosinophils % 2.5 %; Hematocrit 21.5 % (37.5-50.1); Hemoglobin 6.8 g/dL (12.9-16.9); Immature Granulocytes % 1.5 % (0-4); Lymphocytes # 0.6 K/mcL (0.6-4.6); Lymphocytes % 9.9 %; Mean Corpuscular HGB Conc 31.6 g/dL (31.6-35.5); Mean Corpuscular Hemoglobin 31.6 pg (28.0-33.3); Mean Platelet Volume 10.9 fL (9.4-12.4); Monocytes # 0.5 K/mcL (0.0-1.3); Monocytes % 7.9 %; Neutrophils # 4.6 K/mcL (1.6-8.9); Platelet Count 248 K/mcL (140-400); Red Blood Count 2.15 M/mcL (4.19-5.50); Red Cell Distribution Width 13.9 % (11.5-14.5)
[2020-11-29] MEDS ORDERED: 0.9 % Sodium Chloride 250 ML IVC SCH (18:15)
[2020-11-29] MEDS ORDERED: polyethylene glycoL 3350 17 GM POWD.PACK PO PRN (19:05)
[2020-11-29 20:11] LABS: Hemoglobin 7.1 g/dL (12.9-16.9)
[2020-11-30] MEDS: Vancomycin 1,500 MG/265 ML IV.SOLN IVPB SCH (02:36)
[2020-11-30] MEDS: Piperacillin/Tazobactam 3.375 GM in 0.9 % Sodium Chloride Mini Bag 100 ML IVPB SCH ×2 (05:03→11:45)
[2020-11-30] MEDS: Insulin LISPRO 300 UNITS/3 ML VIAL SUBQ SCH ×4 (07:50→20:31)
[2020-11-30] MEDS: Isosorbide MONOnitrate (24 HR) 60 MG TAB.ER.24H PO SCH (08:21)
[2020-11-30] MEDS: Apixaban 5 MG TABLET PO SCH ×2 (08:21→20:28)
[2020-11-30] MEDS: Aspirin Enteric Coated 81 MG Tablet PO SCH (08:21)
[2020-11-30] MEDS: Cyanocobalamin (B-12) 1,000 MCG TABLET PO SCH (08:21)
[2020-11-30] MEDS: Spironolactone 25 MG TABLET PO SCH (08:22)
[2020-11-30] MEDS: allopurinoL 100 MG TABLET PO SCH (08:22)
[2020-11-30] MEDS: lisinopriL 20 MG TABLET PO SCH (08:22)
[2020-11-30] MEDS: carvediloL 6.25 MG TABLET PO SCH ×2 (08:22→16:22)
[2020-11-30] MEDS: Furosemide 40 MG/4 ML VIAL IVP SCH ×2 (08:22→20:25)
[2020-11-30] MEDS: hydrALAZINE 25 MG TABLET PO SCH ×2 (08:23→20:28)
[2020-11-30 11:19] LABS: Hematocrit 26.3 % (37.5-50.1); Hemoglobin 8.3 g/dL (12.9-16.9); Mean Corpuscular HGB Conc 31.6 g/dL (31.6-35.5); Mean Corpuscular Hemoglobin 31.4 pg (28.0-33.3); Mean Corpuscular Volume 99.6 fL (83.0-100.0); Mean Platelet Volume 10.4 fL (9.4-12.4); Platelet Count 289 K/mcL (140-400); Red Blood Count 2.64 M/mcL (4.19-5.50); Red Cell Distribution Width 15.4 % (11.5-14.5); White Blood Count 8.5 K/mcL (4.3-11.1)
[2020-11-30 11:40] LABS: BUN/Creatinine Ratio 22 (6-26); Blood Urea Nitrogen 27 mg/dL (8-23); Calcium 8.3 mg/dL (8.6-10.3); Carbon Dioxide 27 mEq/L (23-29); Chloride 102 mEq/L (98-107); Glucose 220 mg/dL (70-105); Osmolality,Calculated 294 (280-300); Sodium 136 mEq/L (136-145); eGFR For African Americans > 60 (> 60); eGFR For Non-African Americans 59 (> 60)
[2020-11-30] MEDS ORDERED: cefTRIAXone 2,000 MG in 0.9 % Sodium Chloride Mini Bag 100 ML IVPB SCH (20:00)
[2020-12-01] MEDS: Vancomycin 1,500 MG/265 ML IV.SOLN IVPB SCH (01:22)
[2020-12-01 06:23] LABS: Basophils % 0.4 %; Eosinophils # 0.1 K/mcL (0.0-0.6); Eosinophils % 1.5 %; Hematocrit 25.9 % (37.5-50.1); Hemoglobin 8.4 g/dL (12.9-16.9); Immature Granulocytes % 1.3 % (0-4); Lymphocytes # 0.6 K/mcL (0.6-4.6); Lymphocytes % 7.1 %; Mean Corpuscular HGB Conc 32.4 g/dL (31.6-35.5); Mean Corpuscular Hemoglobin 32.1 pg (28.0-33.3); Mean Corpuscular Volume 98.9 fL (83.0-100.0); Mean Platelet Volume 10.3 fL (9.4-12.4); Monocytes # 0.7 K/mcL (0.0-1.3); Monocytes % 7.5 %; Neutrophils # 7.4 K/mcL (1.6-8.9); Platelet Count 298 K/mcL (140-400); Red Blood Count 2.62 M/mcL (4.19-5.50); Red Cell Distribution Width 15.3 % (11.5-14.5); Segmented Neutrophils % 82.2 %
[2020-12-01 06:52] LABS: BUN/Creatinine Ratio 25 (6-26); Blood Urea Nitrogen 31 mg/dL (8-23); Calcium 8.6 mg/dL (8.6-10.3); Carbon Dioxide 28 mEq/L (23-29); Chloride 102 mEq/L (98-107); Glucose 163 mg/dL (70-105); Osmolality,Calculated 296 (280-300); Potassium 3.9 mEq/L (3.5-5.1); Sodium 138 mEq/L (136-145); eGFR For African Americans > 60 (> 60); eGFR For Non-African Americans 58 (> 60)
[2020-12-01] MEDS: hydrALAZINE 25 MG TABLET PO SCH (09:46)
[2020-12-01] MEDS: Apixaban 5 MG TABLET PO SCH ×2 (09:46→12:29)
[2020-12-01] MEDS: Aspirin Enteric Coated 81 MG Tablet PO SCH (09:46)
[2020-12-01] MEDS: Cyanocobalamin (B-12) 1,000 MCG TABLET PO SCH (09:47)
[2020-12-01] MEDS: Spironolactone 25 MG TABLET PO SCH (09:47)
[2020-12-01] MEDS: Isosorbide MONOnitrate (24 HR) 60 MG TAB.ER.24H PO SCH (09:47)
[2020-12-01] MEDS: allopurinoL 100 MG TABLET PO SCH (09:47)
[2020-12-01] MEDS: Furosemide 40 MG/4 ML VIAL IVP SCH (09:48)
[2020-12-01] MEDS: lisinopriL 20 MG TABLET PO SCH (09:48)
[2020-12-01] MEDS: carvediloL 6.25 MG TABLET PO SCH (10:05)
[2020-12-01] MEDS: Insulin LISPRO 300 UNITS/3 ML VIAL SUBQ SCH ×2 (10:08→13:03)
[2020-12-01] MEDS ORDERED: *HR* Alteplase (Cathflo) 2 MG VIAL IVP ONE (13:42)
[2020-12-01 15:20] VITALS: BP 163/63; PULSE 59; TEMP 98.1; O2SAT 99
== END 2020-12-01 16:38 | disposition short-term general hospital (02) ==
LOC: EMEROOARM 18:43 → CDU 18:43 → SUATTDRO 11-28 08:32 → CDU 11-28 09:26
PROVIDERS: ADMIT Internal Medicine; ATTEND Hospitalist